=== PATIENT | male | born 1945 | race Caucasian/White ===

== ENCOUNTER 2019-12-01 08:02 | Outpatient (CLI) | payer MEDICARE, SELFPAY ==
--- NOTE | 2019-12-01 | CT_ITS ---
WS: [id number] CT ANGIOGRAPHY abdomen and pelvis AORTA HISTORY: AAA W/O RUPTURE TECHNIQUE: CT angiogram is performed during IV injection. Reformation and MIP images reviewed. All CT scans at [facility] use at least one of these dose optimization techniques: automated exp osure control; mA and/or kV adjustment per patient size (includes targeted exams where dose is matche d to clinical indication); or iterative reconstruction. CONTRAST: Omnipaque 350; 95 mL IV. DLP: 2566.06 mGycm COMPARISON: 08/21/2018 Marked emphysematous changes at the lung bases. Heart size is normal to slightly enlarged. No signifi cant hiatal hernia. There is mild tricuspid regurgitation into hepatic veins. Normal size liver and s pleen. On this early arterial enhancement phase there is normal enhancement of the visceral organs. G allbladder is been removed. Pancreas demonstrates mild atrophy. Bilateral renal cysts with normal enh ancement throughout the kidneys. No obstruction. No free fluid or adenopathy. Extensive brady diverticu losis without acute diverticulitis. Well-distended urinary bladder. Prostate hypertrophy. Abdominal aorta: Endovascular graft has been placed throughout the abdominal aorta and extending into the common iliac arteries bilaterally. Maximum diameter of the saccular [place] aortic aneurysm is un changed at approximately 6.2 cm. There is a curvilinear area of increased density in the LEFT lateral thrombus on the unenhanced study which was present on the prior study. The endovascular graft extend s from the superior mesenteric artery and inferior into the iliac arteries. There is normal enhanceme nt of the endovascular lumen. No increase in size of the saccular aneurysm. On the delayed imaging th ere is no evidence for endovascular leak. Common iliac arteries normally enhanced through the graft. Aneurysmal dilatation of the LEFT common iliac artery 3.1 cm which is stable. RIGHT common iliac annia ry is ectatic. Atherosclerotic changes extend into the common, internal/external iliac arteries to th e femoral artery. Linear intraluminal defect in the distal RIGHT external iliac artery may be focal d issection. Unchanged. Mild spondylitic changes in the thoracic and lumbar spines as visualized. No osseous destruction. CT/CT angio abdomen pelvis 17085 IMPRESSION: 1. Stable endovascular graft repair of the abdominal aorta and iliac arteries. 2. 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 3. 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 4. 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 5. Brady diverticulosis without diverticulitis. 6. Prior granulomatous disease.
[2019-12-01] MEDS: iohexol 350 mg/mL 100 mL Btl IV (09:13)
[2019-12-01 09:16] LABS: Blood Urea Nitrogen 8 mg/dL (8-23)
== END 2019-12-01 08:03 | disposition home or self-care (01) ==
PROVIDERS: Family Provider Internal Medicine; Visit Provider Thoracic Surgery (Cardiothoracic Vascular Surgery)
DX: I71.4 Abdominal aortic aneurysm, without rupture (principal); K57.90 Diverticulosis of intestine, part unspecified, without perforation or abscess without bleeding; I72.3 Aneurysm of iliac artery
CPT/HCPCS: 74174; 82565; 84520; Q9967

== ENCOUNTER 2021-02-17 09:03 | Outpatient (CLI) | payer MEDICARE, SELFPAY ==
--- NOTE | 2021-02-17 09:30 | CT_ITS ---
WS: [id number] CTA ABDOMEN PELVIS TECHNIQUE: Noncontrast plus contrast enhanced CTA of the abdominal aorta with coronal and sagittal re formatted images and additional MIP Images. CLINICAL INFORMATION: Abdominal aortic aneurysm. COMPARISON: CTA December 01, 2019 and DLP: 2322.[address] scans at [facility] use at least one of these dose optimization techniques: automat ed exposure control; mA and/or kV adjustment per patient size (includes targeted exams where dose is matched to clinical indication); or iterative reconstruction. FINDINGS: Prior postoperative changes aortic endovascular graft repair with biiliac extension. Excluded aneurys m sac measuring 5.5 x 5.0 cm AP by transverse slightly decreased in size from previous. Previously th is measured 6.2 cm x 5.0 cm. Celiac and SMA are patent. Renal arteries are patent. No evidence of end oleak on the delayed imaging. No evidence of intramural hematoma on the noncontrast imaging. Stable c alcified mural thrombus eccentric to the left on the noncontrast imaging. Stable left common iliac ar [place] aneurysm measuring 3.1 CM. Stable ectatic right common iliac artery. 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 Advanced chronic emphysematous changes in the lung bases. Normal GE junction. Normal liver and spleen . Prior cholecystectomy. Fatty atrophy of the pancreas. Bilateral renal cysts. Colonic diverticulosis is unchanged. No evidence of acute diverticulitis. Prostate hypertrophy. Urine distended bladder. CT/CT angio abdomen pelvis 67991 IMPRESSION: 1. Prior postoperative changes aortic endograft repair with biiliac extension. 2. No evidence of endoleak on the delayed imaging. 3. Excluded aneurysm sac is slightly decreased in size today measuring 5.5 x 5 .0 cm 4. Stable left common iliac artery aneurysm measuring 3.1 cm. 5. 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 No flow-limiti ng stenosis 6. No other significant changes from previous.
[2021-02-17 09:49] LABS: Blood Urea Nitrogen 10 mg/dL (8-23)
[2021-02-17] MEDS: iohexol 350 mg/mL 100 mL Btl IV (10:02)
== END 2021-02-17 09:04 | disposition home or self-care (01) ==
PROVIDERS: PCP Internal Medicine; Visit Provider Thoracic Surgery (Cardiothoracic Vascular Surgery)
DX: I71.4 Abdominal aortic aneurysm, without rupture (principal)
CPT/HCPCS: 74174; 82565; 84520; Q9967

== ENCOUNTER → 2022-01-13 09:12 | Outpatient (BNVA) | payer MEDICARE, SELFPAY | PROVIDERS: PCP Internal Medicine; Referring Provider Nurse Practitioner Family; Visit Provider Orthopaedic Surgery | DX: M17.12 Unilateral primary osteoarthritis, left knee (principal); M25.562 Pain in left knee | CPT/HCPCS: 73560; 73565; 99203 ==

== ENCOUNTER → 2022-02-01 13:13 | Day surgery (SDC) | payer MEDICARE, SELFPAY | PROVIDERS: PCP Internal Medicine; Visit Provider Orthopaedic Surgery | DX: Z01.818 Encounter for other preprocedural examination (principal) | CPT/HCPCS: 93005 ==

== ENCOUNTER 2022-02-13 14:55 | Observation (INO) | payer MEDICARE, SELFPAY ==
--- NOTE | 2022-02-01 13:13 | ECG_ITS ---
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 Measurements Intervals [place] Rate: 74 P: 50 VA: 161 QRS: 38 QRSD: 86 T: 47 QT: 393 QTc: 437 Interpretive Statements SINUS RHYTHM SEPTAL MYOCARDIAL INFARCTION , OF INDETERMINATE AGE [40+ ms Q WAVE IN V1/V2] Compared to ECG 07/09/2018 09:23:30 No significant changes Electronically Signed On 02-01-2022 19:47:01 CDT by Chantel Rodriguez M.D. [id number]
[2022-02-01 13:37] LABS: Basophils # 0.1 10^3/uL (0.0-0.1); Basophils % 0.7 %; Eosinophils # 0.3 10^3/uL (0.0-0.8); Eosinophils % 4.5 %; Hemoglobin 13.2 g/dL (11.7-16.6); Lymphocytes # 2.1 10^3/uL (0.8-4.8); Lymphocytes % 28.1 %; Mean Corpuscular Hemoglobin 31.7 pg (28.0-34.0); Mean Corpuscular Volume 95.9 fl (80-94); Mean Platelet Volume 8.7 fL (7.4-10.4); Monocytes # 0.7 10^3/uL (0.2-0.9); Monocytes % 9.2 %; Neutrophils # 4.33 10^3/uL (1.8-7.7); Neutrophils % 57.1 %; Nucleated Red Blood Cells % 0 %; Platelet Count 286 10^3/cmm (130-400); Red Blood Count 4.17 10^6/uL (4.1-5.3); Red Cell Distribution Width 13.4 % (12.1-15.1); White Blood Count 7.6 10^3/uL (4.0-10.0)
--- NOTE | 2022-02-01 15:11 | ANES.PREANE2 ---
Pre-Anesthetic Assessment Height/Weight: Height 1.73 m Weight 65.771 kg Preop Diagnosis: OA left knee Operation Date: 02/13/22 10:50 Proposed Procedures p Left Total Knee Arthroplasty 84347,M17.12(Left) - Ciro Degroot MD Last intake: none Social No alcohol and No tobacco Exam alert, oriented x 3 and regular rate & rhythm b/l breath sounds diminished Airway Submandibular: within normal limits Cervical ROM: within normal limits Mallampati: Class II Comments: Comments: Poor dentition, missing teeth Pulmonary Chronic Obstructive Pulmonary Disease and Shortness of Breath CV/HEM Able to ascend flight of stairs w/o CP but does get SOB EKG 02/01/22 ? ? Interpretive Statements SINUS RHYTHM SEPTAL MYOCARDIAL INFARCTION , OF INDETERMINATE AGE [40+ ms Q WAVE IN V1/V2] Compared to ECG 07/09/2018 09:23:30 No significant changes [id number] None reported Hepatic None reported GI None reported Metabolic None reported Musc/skel None reported Neuropsych None reported Anesthetic Plan ASA status: 3 Anesthesia: Anesthesia Evaluation and Regional (specify below) (Spinal with adductor canal block for post op pain control ) Other: We discussed risk and benefits of general vs spinal anesthesia including DVT risk, infection, paralysis/catastrophic nerve injury, back bruising/pain, PDPH, conversion to general in case of spinal, PONV, sore throat (sometimes severe), corneal abrasion, positioning and peripheral nerve injuries, life threatening allergic reaction, post operative ICU admission requiring prolonged intubation, stroke, heart attack, , post operative delirium and/or post operative cognitive decline, and rare incidences of recall (under general anesthesia). We discussed risk and benefits of nerve block for post op pain control including management of pain and titration of pain medications as signs/symptoms of nerve block wearing off begin to appear and/or prior bed. We discussed risk of failed nerve block, vascular injury or other vital structure injury, abscess/infection, LAST, and nerve injury. Patient elects spinal with adductor canal block for post op pain control Risk of > 500 ml blood loss (7ml/kg in children): No Medications/Allergies Home Medications Medication Instructions Recorded Confirmed Last Taken Type aspirin 81 mg tablet,delayed 81 mg PO DAILY 06/25/20 08/03/22 Unknown History release atorvastatin 20 mg tablet 20 mg PO DAILY 12/25/19 02/01/22 Unknown History Allergies Allergy/AdvReac Type Severity Reaction Status Date / Time No Known Allergies Allergy Verified 01/13/22 09:38 [facility] Anesthesia Surgical History S/P AAA repair Family History Mother Cancer Father Cancer Sister Chronic kidney disease (CKD) Social History Smoking and tobacco status: current every day smoker cigarettes Packs smoked per day: 1 Years cigarettes smoked: 65 Alcohol intake: current Alcohol intake frequency: 0-2 Drinks per Day Data Anesthesia : 02/01/22 12:50 Short CBC 02/01/22 Range/Units 12:50 WBC 7.6 (4.0-10.0) 10^3/uL Hgb 13.2 (11.7-16.6) g/dL Hct 40.0 L (42.0-52.0) % MCV 95.9 H (80-94) fl Plt Count 286 (130-400) 10^3/cmm Neut % (Auto) 57.1 % Neut # (Auto) 4.33 (1.8-7.7) 10^3/uL Cardiac Studies: No Data to Display
[2022-02-13] VITALS (16 sets, daily range): BP systolic 101–158; BP diastolic 57–74; PULSE 62–78; RESP 14–18; TEMP 36.1–36.8; O2SAT 90–97
--- NOTE | 2022-02-13 09:23 | ECG_ITS ---
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 Measurements Intervals [place] Rate: 75 P: 53 MS: 166 QRS: 56 QRSD: 83 T: 60 QT: 388 QTc: 435 Interpretive Statements SINUS RHYTHM WITH SINUS ARRHYTHMIA MINIMAL ST DEPRESSION [0.025+ mV ST DEPRESSION] Compared to ECG 02/01/2022 13:13:33 ST (T wave) deviation now present Myocardial infarct finding no longer present Electronically Signed On 02-13-2022 17:43:44 CDT by Reed Roca M.D. [email or web address] | [id number]"
[2022-02-13] MEDS: sodium chloride 0.9% 1,000 ML 30 ML IV (09:41)
[2022-02-13] MEDS: oxyCODONE 20 mg ER (12 HR) Tablet PO (09:48)
[2022-02-13] MEDS: acetaminophen 500 mg Tablet 1000 MG PO ×2 (09:50→18:17)
[2022-02-13] MEDS: gabapentin 300 mg Capsule PO (09:50)
[2022-02-13] MEDS: CELEcoxib 100 mg Capsule 400 MG PO (10:08)
--- NOTE | 2022-02-13 10:51 | P.ANESUD_ITS ---
Pre-Anesthetic Update Pre-Anesthetic Assessment: Date of Surgery/Procedure: 02/13/22 Preop Angelique gnosis: OsteoarthritisLeft knee Proposed Procedure: Operation Date: 02/13/22 11:20 Proposed Procedures p Left Total Knee Arthroplasty 58012,M17.12(Left) - Ciro Degroot MD Any changes to Pre-Anesthetic Assessment?: No Last Intake: Intake Last Liquid Date 02/12/22 Last Liquid Time 19:00 Last Solid Date 02/12/22 Last Solid Time 19:00 Vitals: Pulse Rhythm 02/13/22 09:28 Pulse Strength 3+ Normal 02/13/22 09:28 Respiratory Rate 16 02/13/22 09:48 Respiratory Depth Normal 02/13/22 09:48 Respiratory Patter n 02/13/22 09:48 Pulse Oximetry 94 02/13/22 09:48 Oxygen Delivery Me thod 02/13/22 09:28 Exam: Pre-Anes Outpt Exam: alert, oriented x 3, clear to auscultation bilaterally and regular rate & rhythm Other Pertinent Information: Other Pertinent Information: Previous spine surgery will attempt to place SAB above. Cardiac Studies: No Data to Display
[2022-02-13] MEDS: ceFAZolin 2,000 MG in sodium chloride 0.9% (plus) 50 ML 100 MG IV ×2 (11:39→19:24)
--- NOTE | 2022-02-13 11:40 | P.HP_ITS ---
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 Radiographs revealed severe degenerative changes in the medial compartment of his knee. He has failed anti-inflammatories.. He describes considerable pain with activity and functional loss. He is here for an elective left total knee arthroplasty Medications/Allergies* Home Medications Medication Instructions Recorded Confirmed Type aspirin 81 mg tablet,delayed 81 mg PO DAILY 12/25/19 02/01/22 History release Allergies/Adverse Reactions Allergy/AdvReac Type Severity Reaction Status Date / Time No Known Allergies Allergy Verified 02/13/22 09:06 Current Medications: Generic Name Dose Route Start Last Admin Trade Name Freq PRN Reason Stop Dose Admin Sodium Chloride 1,000 mls @ 30 mls/hr 02/13/22 09:15 02/13/22 09:41 Sodium Chloride 0.9% IV 02/14/22 09:14 30 mls/hr .Q24H ANTONIA Administration Pertinent History/Comorbid Conditions* Surgical History (Updated 12/25/19 @ 10:48 by Cristobal Castañeda MD) S/P AAA repair Family History (Updated 12/25/19 @ 10:35 by Klarissa Nails LPN) Chronic kidney disease (CKD) Sister Cancer Mother Father Social History Smoking and tobacco status: current every day smoker cigarettes Packs smoked per day: 1 Years cigarettes smoked: 65 Alcohol intake: current Alcohol intake frequency: 0-2 Drinks per Day Pertinent Exam Findings alert, oriented x 3, clear to auscultation bilaterally, regular rate & rhythm and operative site marked Recommendations Surgery/Procedure today Coding Level of Care Code Acute Superintendent Measurement for Carla Bentley
[2022-02-13] MEDS: tranexamic acid 1,000 mg/10mL SDV 1000 MG IV (11:58)
--- NOTE | 2022-02-13 12:35 | ANES.PROC ---
Anesthesia Procedures Procedure/Date: 02/13/22 Nerve Block ^: Nerve Block 1: Main Anesthesia: spinal anesthesia block Time Out Performed: Yes Consent: requested by attending/covering physician, from patient, risks and benefits reviewed and patient agrees to proceed Nerve block location: adductor canal (left) Anesthesia monitors applied: pulse oximetry, EKG, BP cuff and oxygen Nerve block position: supine Anesthetic Used: ropivicaine 0.5% Amount of anesthesia used (mL): 20 Ultrasound used to: recognize landmarks Nerve Stimulator Used?: No Interscalene/Femoral BLK: 4 stimuplex 21 g needle used for position and inplane approach Injection: neg aspiration of heme Patient Tolerated Procedure: well Complications: none
[2022-02-13] MEDS: tranexamic acid 1,000 mg/10mL SDV 1000 MG XX (12:38)
[2022-02-13] MEDS: ketorolac 30 mg/mL INJ XX (12:39)
[2022-02-13] MEDS: EPINEPHrine 1 mg/mL INJ XX (12:39)
--- NOTE | 2022-02-13 13:40 | XRR_ITS ---
PROCEDURE INFORMATION: Exam: XR Left Knee Exam date and time: 02/13/2022 1:41 PM Age: 76 years old Clinical indication: Device placement; Joint replacement hardware; Prior surgery; Surgery date: Post-operative (0-2 days); Surgery type: Left total knee arthroplasty TECHNIQUE: Imaging protocol: Radiologic exam of the Left knee. Views: 1 or 2 views. COMPARISON: CR XR knees AP WB w LT lmt ORTH 01/13/2022 9:28 AM FINDINGS: Bones/joints: The patient is status post left total knee arthroplasty with patellar resurfacing. No fracture or dislocation. Expected postoperative soft tissue changes noted. Soft tissues: See Bones/joints finding. XR/XR knee LT 1-2V 53898 IMPRESSION: Status post left total knee arthroplasty, without evidence of hardware related complication.
--- NOTE | 2022-02-13 13:40 | PM.OP ---
Operative Report Date of procedure: February 13, 2022 Pre-op diagnosis: Preop Diagnosis OsteoarthritisLeft knee Post-op diagnosis: same Post-op diagnosis: Same Post-op findings: Same Procedure done: Left total knee arthroplasty Implants: [place] Triathalon total knee arthroplasty components were used includin) Size 5 triathalon cruciate retaining femoral component 2) Size 5 Tritanium tibial component 3) Size 5/19 mm thickness CS tibial bearing insert Pathology: none sent Surgeon: Ciro Degroot Anesthesia: Nerve Block (Spinal, adductor canal block) Estimated blood loss (mL): 100 Findings: The patient eburnated bone over his medial femoral condyle and medial tibial plateau with varus alignment of the knee. There is thinning and osteophytes about the trochlea but the patellar cartilage for the most part was not healthy. Condition: stable Disposition: PACU Procedure: The patient was taken to the operating room. Patient was given 1 g of tranexamic acid . The above anesthesia provided by the anesthesia service. A timeout was performed. The patient was prepped and draped in the usual fashion with the lower extremity exposed. A anterior incision was made, midline, from a point proximal to the patella to the distal tibial tubercle. The knee was entered through a separate vastus approach. The patella could be displaced laterally and the knee flexed. The patellar fat pad was resected to provide better visibility. Retractors were placed medially and laterally adjacent to the tibial plateau. The femoral canal was drilled in line with the longitudinal axis of the femur. Intramedullary femoral guide for used to make a distal femoral cut in 5 degrees of valgus, resecting 8 mm from the more prominent condyle. Next the extra medullary tibial guide was placed in alignment with the longitudinal axis of the tibia. The cutting guides were set to remove just over 9 mm from the high tibial plateau. The proximal tibia was then cut. The femoral measuring guide was then placed over the distal femur. Rotation was verified checking the relationship of the guide to the condyle and the trochlear groove. The femur was measured and cut for the desired femoral component. The desired tibial baseplate was then chosen. A trial reduction with the femur tibial baseplate and polyethylene was done, assuring that the knee was stable throughout full motion. Ligament balancing involved release nothing more than the deep medial collateral ligament.The tibia was prepared for the tibial baseplate. Minimal patellar wear was identified and the patella seemed to track well with the femoral component. Decision was made not to resurface the patella. Utilizing electrocautery a circumferential neurectomy was accomplished across the patella. Surfaces were cleaned with a gentamicin solution. The femur and tibia were then press-fit into place. The posterior capsule and collateral ligaments were then injected with a solution of 100 mL of 0.2% ropivacaine, 1 mL of a 1:1000 epinephrine solution, 30 mg of Toradol, and 1 g of tranexamic acid. Final polyethylene component was then snapped into place into the tibia. The extensor retinaculum was closed with a running 1 Stratafix interrupted 1 Ethibond. The subcutaneous tissues were closed with 2-0 Vicryl and the skin was closed with a running 4-0 Stratafix. The wound was covered with a Dermabond Prineo dressing. It was covered with 4xrs and a compressive Tubigauze was applied. The patient was taken to recovery room in stable condition.
--- NOTE | 2022-02-13 14:00 | ANE.PACU2 ---
Inpatient post-anesthesia follow up: Airway intact: Yes Vital signs: Temperature 97.0 F Pulse Rate 63 Respiratory Rate 16 Blood Pressure 101/63 Pulse Oximetry 91 Oxygen Delivery Me thod Room Air Oxygen Flow Rate 6 Fraction of Inspir ed Oxygen Hydration adequate: Yes Nausea and vomiting: No Pain level: 1 Mental status: Baseline
[2022-02-13] MEDS: CELEcoxib 200 mg Capsule PO (22:13)
[2022-02-14] VITALS (7 sets, daily range): BP systolic 136–172; BP diastolic 73–91; PULSE 64–75; RESP 15–21; TEMP 36.4–37.1; O2SAT 95–96
[2022-02-14] MEDS: sodium chloride 0.9% 1,000 ML 100 ML IV (02:05)
[2022-02-14] MEDS: acetaminophen 500 mg Tablet 1000 MG PO ×2 (02:20→10:02)
[2022-02-14] MEDS: ceFAZolin 2,000 MG in sodium chloride 0.9% (plus) 50 ML 100 MG IV (03:24)
[2022-02-14 06:21] LABS: Hemoglobin 11.8 g/dL (11.7-16.6)
[2022-02-14] MEDS: aspirin 81 mg EC Tablet PO (10:03)
[2022-02-14] MEDS: CELEcoxib 200 mg Capsule PO (10:03)
[2022-02-14] MEDS: albuterol 8 gm MDI 2 PUFF INHALATION (10:15)
--- NOTE | 2022-02-14 11:03 | PM.DCS ---
Discharge Providers Date of Admission: 02/13/22 14:55 Date of Discharge: February 14, 2022 Attending Provider at Admission: Ciro Perry MD Attending Provider at Discharge: Ciro Perry MD Primary Care Provider: Talita Recinos MD Reason for Visit Reason for Visit: Brief History: Martín is a 76-year-old male with osteoarthritis of the left knee exacerbated after a fall 3 months ago. Radiographs showed complete obliteration of medial joint space and varus alignment. Total knee arthroplasty was chosen to improve pain and function Hospital Course Hospital Course The patient tolerated surgery well. They remained hemodynamically stable. They was begun on aspirin and sequential compression dressing for DVT prophylaxis. The patient was mobilized with therapy beginning the day of surgery and by the first postoperative day independent with the walker. As the pain was adequately controlled and they were fully mobile they were discharged home. Physical Exam Narrative: On the day of discharge the knee incision was clean. They had no drainage. There is minimal swelling in the thigh and knee and the calf. No distal neurovascular deficits were noted Urinary Catheter Management: Cook: Cath Placed During This Visit: yes Urinary Catheter Date of Insertion: 02/13/22 Urinary Catheter Time of Insertion: 12:10 Discharge Data Studies Completed and Pending Completed Studies During Hospitalization Category Date Time Status XR knee LT 1-2V 02822 Routine Exams 02/13/22 13:40 Completed Radiology Impressions Knee X-Ray 02/13/22 13:40 IMPRESSION: Status post left total knee arthroplasty, without evidence of hardware related complication. Laboratory Results WBC 7.6 10^3/uL (4.0-10.0) 02/01/22 12:50 RBC 4.17 10^6/uL (4.1-5.3) 02/01/22 12:50 Hgb 11.8 g/dL (11.7-16.6) 02/14/22 06:13 Hct 40.0 % (42.0-52.0) L 02/01/22 12:50 MCV 95.9 fl (80-94) H 02/01/22 12:50 MCH 31.7 pg (28.0-34.0) 02/01/22 12:50 MCHC 33.0 g/dL (30.0-36.0) 02/01/22 12:50 RDW 13.4 % (12.1-15.1) 02/01/22 12:50 Plt Count 286 10^3/cmm (130-400) 02/01/22 12:50 MPV 8.7 fL (7.4-10.4) 02/01/22 12:50 Neut % (Auto) 57.1 % 02/01/22 12:50 Lymph % (Auto) 28.1 % 02/01/22 12:50 [place] % (Auto) 9.2 % 02/01/22 12:50 Eos % (Auto) 4.5 % 02/01/22 12:50 Baso % (Auto) 0.7 % 02/01/22 12:50 Neut # (Auto) 4.33 10^3/uL (1.8-7.7) 02/01/22 12:50 Lymph # (Auto) 2.1 10^3/uL (0.8-4.8) 02/01/22 12:50 [place] # (Auto) 0.7 10^3/uL (0.2-0.9) 02/01/22 12:50 Eos # (Auto) 0.3 10^3/uL (0.0-0.8) 02/01/22 12:50 Baso # (Auto) 0.1 10^3/uL (0.0-0.1) 02/01/22 12:50 Nucleated RBC % (auto) 0 % 02/01/22 12:50 Nucleated RBCs # 0.0 /100WBC 02/01/22 12:50 Vitals Last Vital Signs Temp 98.7 F 02/14/22 10:05 Pulse 64 02/14/22 10:16 Resp 15 02/14/22 10:16 BP 136/76 02/14/22 10:05 Pulse Ox 96 02/14/22 10:16 O2 Del Method 02/14/22 10:16 O2 Flow Rate 2 02/13/22 22:06 Discharge Plan Discharge Patient Disposition: Home Condition: Stable Prescriptions: New oxycodone 5 mg Tablet 5 mg PO Q4H PRN (Reason: Moderate Pain) 7 Days Qty: 30 0RF celecoxib 200 mg Capsule 200 mg PO Q12H 14 Days Qty: 28 0RF acetaminophen 500 mg Tablet 1,000 mg PO Q8H 14 Days Qty: 84 0RF Continued aspirin 81 mg tablet,delayed release (DR/EC) 81 mg PO DAILY Discharge Orders: Discharge Order (Routine); Ordered 02/14/22 Ordered By: Ciro Perry Other Ambulatory Orders: Physical Therapy Eval and Treat Outpatient (Order) Timeframe: 3 Days Facility: [facility] - Location: Physical Therapy Ordered By: Ciro Perry Discharge Diet: Advance as tolerated Discharge Activity: Limit activity as instructed Patient Instructions: Opioid Safety Activity Restrictions/Additional Instructions: Okay to shower Keep Tubigauze sleeve in place for swelling. Okay to remove for hygiene. Apply FirstIce up to 20 min/hr for pain and swelling Take Celebrex twice a day for the next 15 days for pain , discontinue other anti-inflammatories Take Tylenol 500mg (2 tabs) as needed 3 times a day for mild pain take oxycodone for breakthrough pain. Exercises per physical therapy. May weight-bear as tolerated on total knee arthroplasty IF HAVE ANY PROBLEMS OR QUESTIONS CALL [facility]INE[facility] AT AND ASK TO HAVE DR. PERRY PAGED. Discharge Attestations Time Spent in Discharge Care*: other Quality Metrics Clinical Quality Measures [ No reported AMI, CVA or VTE this stay] Coding Level of Care Code Acute Chg FW DC note
== END 2022-02-14 13:00 | disposition home or self-care (01) ==
LOC: OBGYN 14:59
PROVIDERS: Anesthesiology; Admitting Provider Orthopaedic Surgery; PCP Internal Medicine; Visit Provider Orthopaedic Surgery
PROC: (CPT 27447; principal; 2022-02-13 11:10)
DX: M17.12 Unilateral primary osteoarthritis, left knee (principal); Z79.82 Long term (current) use of aspirin; F17.210 Nicotine dependence, cigarettes, uncomplicated; J44.9 Chronic obstructive pulmonary disease, unspecified
CPT/HCPCS: 27447; 36415; 51702; 73560; 85018; 85025; 93005; 94640; 94664; 97110; 97116; 97161; 97165; C1776; G0378; J0171; J1580; J1885; J2704; J2795; J3535; J7030

== ENCOUNTER → 2022-02-15 10:42 | Outpatient (BNVA) | payer MEDICARE, SELFPAY | PROVIDERS: PCP Internal Medicine; Visit Provider Orthopaedic Surgery | DX: Z96.652 Presence of left artificial knee joint (principal) | CPT/HCPCS: 99024 ==

== ENCOUNTER 2022-02-21 07:24 | Outpatient (RCR) | payer MEDICARE, SELFPAY | END 2022-03-01 23:59 | disposition home or self-care (01) | LOC: SPT 07:24 | PROVIDERS: PCP Internal Medicine; Visit Provider Orthopaedic Surgery | DX: Z96.652 Presence of left artificial knee joint (principal) | CPT/HCPCS: 97110; 97161; 99024 ==

== ENCOUNTER 2022-02-22 08:42 | Outpatient (CLI) | payer MEDICARE, SELFPAY ==
--- NOTE | 2022-02-22 09:30 | USCV_ITS ---
Martín Pickering Age: 76 Gender: M : 1945 Exam Date: 02/22/2022 09:18 Ordering Phys: Ciro Degroot MD Technologist: Vanessa Turk Exam Location: [facility] [place] Indication: Recent Lt knee surgery with swollen lt lower leg HISTORY: Recent Lt Knee surgery with swollen Lt lower Leg PROCEDURES: Venous duplex imaging was performed in only the left lower extremity. The following venous structures were evaluated: common femoral vein, profunda vein, proximal portion of the greater saphenous vein, superficial femoral vein, and the popliteal vein. In addition, the posterior tibial and peroneal trunk were evaluated. Serial compression, augmentation maneuvers, and spectral Doppler flow evaluation were performed. Lt SSV examined. FINDINGS: Normal 2-D Doppler and augmentation and compressibility throughout the lower extremity venous structures. Additional imaging through the proximal calf veins also reveals no thrombus. Limited evaluation of the greater saphenous vein is patent with no thrombus.. Lymph nodes seen Lt groin. CONCLUSIONS No evidence of left lower extremity DVT. Prominent groin lymph nodes likely reactive. River Lester MD (Electronically Signed) Final Date: 22 February 2022 13:28 S
== END 2022-02-22 08:43 | disposition home or self-care (01) ==
LOC: RAD 08:42
PROVIDERS: PCP Internal Medicine; Visit Provider Orthopaedic Surgery
DX: Z96.652 Presence of left artificial knee joint (principal); R22.42 Localized swelling, mass and lump, left lower limb; T81.9XXA Unspecified complication of procedure, initial encounter; Z98.890 Other specified postprocedural states
CPT/HCPCS: 93971

== ENCOUNTER → 2022-02-27 08:14 | Outpatient (BNVA) | payer OTHER, SELFPAY | PROVIDERS: PCP Internal Medicine; Visit Provider Nurse Practitioner Family | DX: Z96.652 Presence of left artificial knee joint (principal); M17.12 Unilateral primary osteoarthritis, left knee | CPT/HCPCS: 73560; 73565 ==

== ENCOUNTER 2022-03-02 06:00 | Outpatient (RCR) | payer MEDICARE, SELFPAY | END 2022-03-31 23:59 | disposition home or self-care (01) | LOC: SPT 06:00 | PROVIDERS: PCP Internal Medicine; Visit Provider Orthopaedic Surgery | DX: Z96.652 Presence of left artificial knee joint (principal) | CPT/HCPCS: 97110 ==

== ENCOUNTER → 2022-03-07 08:43 | Outpatient (BNVA) | payer MEDICARE, SELFPAY | PROVIDERS: PCP Internal Medicine; Visit Provider Nurse Practitioner Family | DX: Z96.652 Presence of left artificial knee joint (principal) | CPT/HCPCS: 99024 ==

== ENCOUNTER 2022-04-01 06:00 | Outpatient (RCR) | payer MEDICARE, SELFPAY | END 2022-04-04 23:59 | disposition home or self-care (01) | LOC: SPT 06:00 | PROVIDERS: PCP Internal Medicine; Visit Provider Orthopaedic Surgery | DX: Z96.652 Presence of left artificial knee joint (principal) | CPT/HCPCS: 97110 ==

== ENCOUNTER → 2022-04-04 09:36 | Outpatient (BNVA) | payer MEDICARE, SELFPAY | PROVIDERS: PCP Internal Medicine; Visit Provider Nurse Practitioner Family | DX: Z96.652 Presence of left artificial knee joint (principal) | CPT/HCPCS: 73560; 73565; 99024; 99214 ==

== ENCOUNTER 2022-04-26 12:28 | Outpatient (CLI) | payer MEDICARE, SELFPAY ==
--- NOTE | 2022-04-26 | USCV_ITS ---
Ladan Martín Age: 76 Gender: M : 1945 Exam Date: 04/26/2022 13:05 Ordering Phys: Talita Recinos MD Technologist: Vineet Denson [place] [facility] [place]: Heart murmur BP: 122 / 80 HR: 63 Rhythm: Sinus Technical Quality: Adequate MEASUREMENTS (Male / Female) Normal Values 2D ECHO LV Diastolic Diameter PLAX 4.9 cm 4.2 - 5.9 / 3.9 - 5.3 cm LV Systolic Diameter PLAX 3.2 cm IVS Diastolic Thickness 0.9 cm 0.6 - 1.0 / 0.6 - 0.9 cm IVS Systolic Thickness 1.2 cm LVPW Diastolic Thickness 1.1 cm 0.6 - 1.0 / 0.6 - 0.9 cm LVPW Systolic Thickness 1.6 cm LVOT Diameter 2.0 cm LV Ejection Fraction 2D Teich 62.3 % LV Ejection Fraction MOD 2C 61.8 % LV Ejection Fraction 2C AL 61.8 % LA Diameter 3.4 cm LA Width 2.9 cm LA Height 3.6 cm RA Width 3.3 cm RA Height 4.0 cm Aorta at Sinotubular Diameter 2.6 cm IVC Diameter 1.1 cm M-MODE Aortic Annulus Diameter 3.3 cm LA Ao Ratio MM 0.9 MV E Point Septal Separation 0.8 cm DOPPLER AV Peak Velocity 184.0 cm/s LVOT Peak Velocity 111.0 cm/s AV Area Cont Eq vti 2.2 cm squared AV Area Cont Eq pk 2.0 cm squared MV Peak Velocity 141.0 cm/s MV Area PHT 3.2 cm squared Mitral E to A Ratio 0.6 MV E' Velocity 34.5 cm/s Mitral E to MV E' Ratio 8.4 Mitral E to LV E' Lateral Ratio 8.1 Mitral E to LV E' Septal Ratio 8.9 TR Peak Velocity 311.0 cm/s TR Peak Gradient 38.7 mmHg TR Mean Velocity 233.2 cm/s TR Mean Gradient 23.3 mmHg TR Velocity Time Integral 74.8 cm Right Atrial Pressure 3.0 mmHg Pulmonary Artery Systolic Pressu 41.7 mmHg PV Peak Velocity 95.0 cm/s RV Acceleration Time 0.1 s RV Ejection Time 0.2 s RV AcT/ET 0.4 FINDINGS Left Ventricle Normal left ventricular size, systolic function and wall thickness, with no regional wall motion abnormalities. Left ventricular ejection fraction is estimated at 65 %. Grade I diastolic dysfunction (abnormal relaxation filling pattern), normal to mildly elevated filling pressures. Right Ventricle Normal right ventricular size and systolic function. Right ventricular systolic pressure 42 mmHg. Right Atrium Normal right atrial size. Left Atrium Normal left atrial size. Mitral Valve Mildly thickened mitral valve. No mitral valve stenosis. Trace mitral valve regurgitation. Aortic Valve Thickened and calcified aortic valve. No aortic valve stenosis. Dena-nv-ytwxnoew aortic valve regurgitation. Tricuspid Valve Structurally normal tricuspid valve. Trace tricuspid valve regurgitation. Pulmonic Valve Pulmonic valve not well visualized. Trace pulmonary valve regurgitation. Pericardium No pericardial effusion. Aorta Normal size aortic root and proximal ascending aorta. IVC Normal IVC dimension with >50% respiratory change of the inferior vena cava. CONCLUSIONS 1. Normal left ventricular size, systolic function and wall thickness, with no regional wall motion abnormalities. Left ventricular ejection fraction is estimated at 65 %. Grade I diastolic dysfunction (abnormal relaxation filling pattern), normal to mildly elevated filling pressures. 2. Rdqe-na-vjkdcyau aortic valve regurgitation. 3. Pulmonary artery pressure estimated at 42 mmHg. 4. No prior similar studies to compare. Chantel Rodriguez MD (Electronically Signed) Final Date: 27 April 2022 11:22 S
--- NOTE | 2022-04-26 13:57 | CT_ITS ---
WS: [id number] CT CHEST WITH INTRAVENOUS CONTRAST HISTORY: TOBACCO ABUSE, CONTINUOUS TECHNIQUE: Contiguous 5 mm axial imaging performed on the thorax. Coronal and sagittal reformats are submitted. All CT scans at [facility] use at least one of these dose optimization techniques: automated exposure control; mA and/or kV adjustment per patient size (includes targeted exams where dose is matched to clinical indication); or iterative reconstruction. CONTRAST: Omnipaque 350; 95 mL IV. DLP: 692.39 mGy.cm COMPARISON: 09/25/2018 Lungs and central airway: Moderate pulmonary hyperexpansion. There is a subsolid nodule measuring 2.5 x 1.8 cm in the central RIGHT middle lobe. Probably present in 2019 but small caliber and difficult to visualize. The remaining lungs are clear. No pneumonia. Pleura: Normal. No pleural effusion. Heart and pericardium: Normal size heart with no pericardial effusion. Mediastinum and arabella: No mediastinum or hilar adenopathy. Vessels: Extensive atherosclerotic plaque throughout the thoracic aorta. Mild aneurysmal dilatation o f the ascending aorta is unchanged since 09/25/2018. Ascending aorta measures 4.7 x 4.5 cm. Heavy calc ification and irregular intimal thickening through the arch. Descending aorta is normal caliber. Norm al pulmonary artery. Chest wall and lower neck: Thyroid is enlarged and multinodular extends substernal. No change since t he prior study. Upper abdomen: Status post Whipple procedure. No mass at the resected pancreatic head site. Hepatic a nd splenic granulomata. No adrenal mass. Proximal endovascular graft of the abdominal aorta is noted. No change of the lummi aneurysm in the infrarenal aorta. Osseous structures: No destructive process. CT/CT chest w con* [id number] IMPRESSION: 1. Subsolid nodule central RIGHT middle lobe measures 2.5 x 1.8 cm. Consider P ET/CT imaging versus [address] follow-up. This will need to be followed long-term to evaluate for stability. 2. Chronic emphysema. 3. Stable mild aneurysmal dilatation ascending aorta. Maximum diameter 4.7 cm. 4. Extensive atherosclerotic plaque within the thoracic aorta. 5. Status post Whipple procedure.
[2022-04-26] MEDS: iohexol 350 mg/mL 100 mL Btl IV (14:29)
== END 2022-04-26 12:29 | disposition home or self-care (01) ==
LOC: RAD 12:32
PROVIDERS: PCP Internal Medicine; Visit Provider Internal Medicine
DX: R01.1 Cardiac murmur, unspecified (principal); F17.200 Nicotine dependence, unspecified, uncomplicated; R91.1 Solitary pulmonary nodule; J43.9 Emphysema, unspecified; I67.2 Cerebral atherosclerosis; I35.1 Nonrheumatic aortic (valve) insufficiency
CPT/HCPCS: 71260; 93306

== ENCOUNTER 2022-05-10 13:46 | Outpatient (CLI) | payer MEDICARE, SELFPAY ==
--- NOTE | 2022-05-10 14:15 | CT_ITS ---
WS: [id number] CT ANGIOGRAPHY abdomen and pelvis. HISTORY: Follow-up abdominal aortic aneurysm repair. TECHNIQUE: Pre and postcontrast imaging is submitted. CT angiogram is performed during IV injection. Reformation images reviewed. All CT scans at [facility] use at least one of these dose optimiz ation techniques: automated exposure control; mA and/or kV adjustment per patient size (includes targ eted exams where dose is matched to clinical indication); or iterative reconstruction. CONTRAST: Omnipaque 350; 95 mL IV. DLP: 2297.90 mGy.cm COMPARISON: 02/17/2021 Chronic emphysematous changes at the lung bases. No mass or nodule. Mild enlargement of the heart. Sm all hiatal hernia. Abdominal aorta: Patient is status post endovascular graft repair of aorta with bilateral iliac arter y extensions. The seneca aneurysm continues to slowly decrease in size now measuring 5.2 x 4.2 cm. Th ere is no evidence for extravasation or endograft leak on the delayed imaging. No increasing thrombus within the lumen of the graft. Again noted is the LEFT common iliac artery aneurysm measuring 3.5 cm in diameter which is stable. Heavy calcification noted within the seneca iliac arteries bilaterally extending into the femoral arteries. Small amount of calcified plaque at the origins of the SMA and c eliac axis. Splenic and hepatic granulomata. Mild tricuspid regurgitation into hepatic veins. Mild atrophy of the pancreas. Normal adrenal glands. Good enhancement of the kidneys. Bilateral cortical hypodensities a re unchanged. Gallbladder has been removed. No GI tract obstruction. There is extensive diverticular disease without acute diverticulitis. No GI tract obstruction. Prostate gland is enlarged encroaching into the urinary bladder. On the delayed imaging ureteral jets and partial filling of the bladder wi th contrast is noted. Moderate spondylitic changes in the lumbar spine. Fusion across the SI joints. CT/CT angio abdomen pelvis [id number] IMPRESSION: 1. Stable postoperative changes of aortic endograft repair with biiliac extens ion. No evidence for endoleak. 2. Continued slow decrease in size of the seneca aneurysm sac. Sac now measure s 5.2 x 4.2 cm as compared to 5.5 x 5.0 cm. 3. Stable LEFT common iliac artery aneurysm at 3.5 cm. 4. Cholecystectomy.
[2022-05-10 14:53] LABS: Blood Urea Nitrogen 10 mg/dL (8-23)
[2022-05-10] MEDS: iohexol 350 mg/mL 100 mL Btl IV (15:01)
== END 2022-05-10 13:47 | disposition home or self-care (01) ==
LOC: RAD 13:47
PROVIDERS: PCP Internal Medicine; Visit Provider Thoracic Surgery (Cardiothoracic Vascular Surgery)
DX: Z98.890 Other specified postprocedural states (principal); Z86.79 Personal history of other diseases of the circulatory system; I72.3 Aneurysm of iliac artery
CPT/HCPCS: 74174; 82565; 84520; Q9967

== ENCOUNTER → 2022-07-07 09:56 | Outpatient (BNVA) | payer MEDICARE, SELFPAY | PROVIDERS: PCP Internal Medicine; Visit Provider Nurse Practitioner Family | DX: M17.12 Unilateral primary osteoarthritis, left knee (principal); Z96.652 Presence of left artificial knee joint | CPT/HCPCS: 73560; 73565; 99214 ==

== ENCOUNTER 2023-03-21 11:45 | Outpatient (CLI) | payer MEDICARE, SELFPAY ==
--- NOTE | 2023-03-21 12:30 | CT_ITS ---
WS: [id number] CT ANGIOGRAPHY ABDOMEN AND PELVIS HISTORY: AAA TECHNIQUE: CT angiogram is performed during IV injection. Reformation images reviewed. MIP imaging. A ll CT scans at [facility] use at least one of these dose optimization techniques: automated ex posure control; mA and/or kV adjustment per patient size (includes targeted exams where dose is match ed to clinical indication); or iterative reconstruction. CONTRAST: Omnipaque 350; 100 mL IV. DLP: 691.98 mGy.cm COMPARISON: 05/10/2022 Chronic emphysema at the lung bases. Heart is normal size. No hiatal hernia. Abdominal aorta: Endovascular graft repair with biiliac artery extensions is reidentified. There is m arked tortuosity of the nulato aorta. Graft begins just below the level of the SMA and extends into t he iliac arteries. [place] aneurysm measures 4.7 x 4.5 cm. No active extravasation or endovascular petros k is identified. Increasing thrombus is noted within the endovascular graft now measuring up to 8 mm in diameter. Thrombus within the graft is new. No para-aortic hematoma. Mild atherosclerosis at the o rigin of the celiac axis and SMA. Both kidneys are being perfused normally. No interval increase in size of the LEFT common iliac artery aneurysm which measures 3.7 cm in transv erse diameter. There has been a slight increase in amount of thrombus within the iliac artery aneurys m included within the graft. No endovascular leak. Hepatic and splenic granulomata. Gallbladder has been removed. Atrophic pancreas with prior Whipple p rocedure. No adrenal mass. No ascites or adenopathy. Mild constipation and tortuosity of the colon wi th mild diffuse diverticulosis. Bilateral lower pole renal cysts. Well distended urinary bladder. No enhancing nodules. Mild prostate enlargement. Benign lipoma adjace nt to the RIGHT ilium. Advanced degenerative changes in the lumbar spine. No fracture. IMPRESSION: 1. Stable postoperative aortic endovascular graft repair with bilateral iliac extensions. No evidence for endovascular leak or enlargement of the nulato aneurysm. 2. Increase in of noncalcified plaque within the aortic graft. Soft plaque now measures up to 8 mm wi thin the graft. 3. Stable LEFT common iliac artery aneurysm size measuring 3.7 cm. Slight increase in amount of throm bus within the iliac artery graft. 4. Prior cholecystectomy and Whipple procedure. 5. Bilateral renal cysts. Normal renal enhancement. 6. Diffuse diverticulosis without acute diverticulitis.
[2023-03-21] MEDS: iohexol 350 mg/mL 500 mL Btl (per mL) IV (12:32)
== END 2023-03-21 11:46 | disposition home or self-care (01) ==
PROVIDERS: PCP Internal Medicine; Visit Provider Thoracic Surgery (Cardiothoracic Vascular Surgery)
DX: Z98.890 Other specified postprocedural states (principal); T82.868A Thrombosis due to vascular prosthetic devices, implants and grafts, initial encounter; Y71.1 Therapeutic (nonsurgical) and rehabilitative cardiovascular devices associated with adverse incidents; I70.0 Atherosclerosis of aorta; I74.5 Embolism and thrombosis of iliac artery; Z86.79 Personal history of other diseases of the circulatory system; I72.3 Aneurysm of iliac artery; K57.90 Diverticulosis of intestine, part unspecified, without perforation or abscess without bleeding; N28.1 Cyst of kidney, acquired
CPT/HCPCS: 74174; Q9967

== ENCOUNTER → 2023-05-10 09:35 | Outpatient (BNVA) | payer MEDICARE, SELFPAY | PROVIDERS: PCP Internal Medicine; Visit Provider Thoracic Surgery (Cardiothoracic Vascular Surgery) | DX: Z98.890 Other specified postprocedural states (principal); Z86.79 Personal history of other diseases of the circulatory system | CPT/HCPCS: 99213 ==

== ENCOUNTER 2023-08-20 10:56 | Outpatient (CLI) | payer MEDICARE, SELFPAY ==
--- NOTE | 2023-08-20 11:02 | CT_ITS ---
WS: [id number] CT chest wo con [id number] HISTORY: NICOTINE DEPENDENCE, CIGARETTES TECHNIQUE: Axial imaging performed through the thorax. Coronal and sagittal reformats are submitted. All CT scans at [facility] use at least one of these dose optimization techniques: automated exposure control; mA and/or kV adjustment per patient size (includes targeted exams where dose is mat ched to clinical indication); or iterative reconstruction. CONTRAST: None DLP: 319.81 mGy.cm COMPARISON: 04/26/2022 Lungs and central airway: Hyperinflated lungs with emphysema. Subpleural nodule centered at the RIGHT hilum on 04/26/2022 has evolved. This node appears to be an area of bronchiectasis centrally. Slight progression of bronchial dilatation but less wall thickening. Otherwise no pulmonary mass or nodule. No pneumonia. Pleura: Normal. No pleural effusion. Heart and pericardium: Normal size heart with no pericardial effusion. Mediastinum and arabella: No adenopathy identified on this unenhanced exam. Vessels: There is extensive calcification throughout a dilated thoracic aorta. Aneurysmal dilatation to 4.6 cm is unchanged. Mild atherosclerotic plaque continues into the great vessels. Pulmonary arter y is normal size. Coronary artery calcifications. Chest wall and lower neck: No soft tissue masses. Upper abdomen: Reidentified is the endovascular graft repair of the the abdominal aorta. The study wa s not protocoled to evaluate the aneurysm. Osseous structures: Atherosclerosis aorta. IMPRESSION: 1. Subsolid nodule in the central RIGHT thorax in the RIGHT middle lobe has changed configuration si nce 04/26/2022. This is evolved be an area of bronchiectasis. There is less wall thickening with slig ht dilatation of the bronchi. 2. No pulmonary mass or nodules. 3. Chronic emphysema. 4. Stable ascending thoracic cardiac aneurysm at 4.6 cm. 5. Heavy calcification within the thoracic aorta and coronary arteries.
== END 2023-08-20 10:57 | disposition home or self-care (01) ==
LOC: RAD 10:57
PROVIDERS: PCP Internal Medicine; Visit Provider Internal Medicine
DX: F17.210 Nicotine dependence, cigarettes, uncomplicated (principal); J47.9 Bronchiectasis, uncomplicated; R91.8 Other nonspecific abnormal finding of lung field; J43.9 Emphysema, unspecified; I71.21 Aneurysm of the ascending aorta, without rupture; I25.10 Atherosclerotic heart disease of native coronary artery without angina pectoris
CPT/HCPCS: 71250

== ENCOUNTER 2024-02-19 12:03 | Outpatient (CLI) | payer MEDICARE, SELFPAY ==
[2024-02-22 11:04] LABS: Quantiferon Mitogen >10.00 IU/mL; Quantiferon Nil 0.02 IU/mL; Quantiferon Plus TB1 0.01 IU/mL; Quantiferon TB Gold NEGATIVE (NEGATIVE)
== END 2024-02-19 12:04 | disposition home or self-care (01) ==
LOC: LAB 12:04
PROVIDERS: PCP Internal Medicine; Visit Provider Internal Medicine
DX: Z20.1 Contact with and (suspected) exposure to tuberculosis (principal)
CPT/HCPCS: 36415; 86480

== ENCOUNTER 2024-07-09 14:29 | Outpatient (CLI) | payer MEDICARE, SELFPAY ==
--- NOTE | 2024-07-09 16:54 | CTR_ITS ---
PROCEDURE INFORMATION: Exam: CTA Abdominal Aorta and Bilateral Lower Extremities (Run-off) Without and With Contrast Exam date and time: 07/09/2024 5:03 PM Age: 78 years old Clinical indication: Condition or disease; Arterial aneurysm; Without rupture; Prior surgery; Surgery date: 6+ months; Surgery type: Aaa, gb, whipple, back; Patient HX: Follow up abdominal aortic aneurysm, bilateral leg cramps, and left foot swelling TECHNIQUE: Imaging protocol: Computed tomographic angiography of the abdominal aorta, pelvis and bilateral lower extremities without and with contrast. 3D rendering (Not supervised by radiologist): MIP and/or 3D reconstructed images were created by the technologist. Radiation optimization: All CT scans at this facility use at least one of these dose optimization techniques: automated exposure control; mA and/or kV adjustment per patient size (includes targeted exams where dose is matched to clinical indication); or iterative reconstruction. Contrast material: OMNIPAQUE 350; Contrast volume: 125 ml; Contrast route: INTRAVENOUS (IV); COMPARISON: CT angio abdomen pelvis [id number] 03/21/2023 12:27 PM RADIATION DOSE METRICS: Total DLP (mGy-cm): 1845.63 FINDINGS: Tubes, catheters and devices: There is contrast opacification outside the lumen of the endovascular stent graft proximally. Pulmonary arteries: The aneurysm sac now measures 5.9 x 5.9 cm was 5.3 x 4.6 cm. Aorta: The patient is status post endovascular stent placement for abdominal aortic aneurysm. Celiac trunk and mesenteric arteries: The proximal celiac trunk is widely patent. The SMA is widely patent. The ELIEZER was not identified and likely thrombosed. Renal arteries: There is scattered plaque involving the bilateral renal arteries without significant stenosis. There is a peripherally calcified renal artery aneurysms involving the left renal hilum measuring 8 mm. Right iliac arteries: Scattered calcific plaque involves the bilateral common and external iliac arteries without significant stenosis. There is a short-segment dissection involving the right distal external iliac artery. Right femoral/popliteal arteries: There is a trfg-nl-mhelugcg stenosis involving the right distal superficial femoral artery. The right popliteal artery is widely patent. Right infrapopliteal arteries: No occlusion or significant stenosis. Left iliac arteries: The stent graft extends into the limbs of the common iliac arteries. There is a left common iliac artery aneurysms measuring 3.1 cm in diameter, unchanged. Left femoral/popliteal arteries: There is a high-grade stenosis involving the left distal superficial femoral artery. Evaluation of the left popliteal artery is severely compromised by streak artifact from the hardware. Left infrapopliteal arteries: There is poor opacification of the left lower extremity runoff vessels likely related to bolus timing limiting evaluation. Heart: The visualized portions of the thorax demonstrates cardiomegaly. Coronary arteries: Coronary artery calcification present. Liver: No mass. Gallbladder and biliary ducts: Is surgically absent. Pancreas: Unremarkable. No mass. No ductal dilation. Postoperative changes from Whipple procedure. Spleen: Normal. No splenomegaly. Adrenal glands: Normal. No mass. Kidneys and ureters: Tiny bilateral cortical renal cysts Stomach and bowel: Scattered colon diverticula present. Appendix: No evidence of appendicitis. Urinary bladder: Unremarkable. No mass. Reproductive: Unremarkable as visualized. Intraperitoneal space: Unremarkable. No free air. No significant fluid collection. Lymph nodes: No lymphadenopathy. Bones/joints: Multilevel degenerative changes involve the spine. Soft tissues: Delayed imaging through the distal thighs and legs performed. Other findings: there is poor opacification of the bilateral common femoral, superficial femoral and popliteal arteries likely related to bolus timing. The proximal runoff vessels are widely patent with diminutive contrast opacification proximally. The proximal runoff vessels are widely patent. Diminished contrast opacification involving the proximal runoff vessels present likely related to bolus timing. CT/CT angio abd aorta runof [id number] IMPRESSION: 1. The patient is status post endovascular stent placement with interval increase in size of abdominal aortic aneurysm sac. There is contrast opacification outside the lumen of the stent at the proximal graft suggesting a type 1 endoleak. 2. Stable left common iliac artery aneurysm. 3. Short segment dissection left external iliac artery. 4. Limited evaluation of the runoff vessels due to poor bolus timing and poor contrast opacification of the lower extremity arteries.
[2024-07-09] MEDS: iohexol 350 mg/mL 500 mL Btl (per mL) IV (17:39)
== END 2024-07-09 14:30 | disposition home or self-care (01) ==
LOC: RAD 14:30
PROVIDERS: PCP Internal Medicine; Visit Provider Internal Medicine
DX: I71.40 Abdominal aortic aneurysm, without rupture, unspecified (principal); Z98.890 Other specified postprocedural states; I71.02 Dissection of abdominal aorta; I28.1 Aneurysm of pulmonary artery; I70.1 Atherosclerosis of renal artery; I72.2 Aneurysm of renal artery; I70.8 Atherosclerosis of other arteries; I77.72 Dissection of iliac artery; I72.3 Aneurysm of iliac artery; R93.5 Abnormal findings on diagnostic imaging of other abdominal regions, including retroperitoneum
CPT/HCPCS: 75635

== ENCOUNTER 2024-09-08 09:11 | Outpatient (CLI) | payer MEDICARE, SELFPAY ==
--- NOTE | 2024-09-08 | ECG_ITS ---
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 The perfusion scan will be documented separately. DATA: Baseline heart rate was 77 beats per minute. Baseline blood pressure was [156/84] millimeters of mercury. Target heart rate was [140]. Maximum heart rate achieved was [] 101. which was [72]% of the predicted target heart rate. Maximum blood pressure was [156/84] millimeters of mercury. The reason for ending the test was [completion of the protocol]. The patient did not experience any symptoms. [] ELECTROCARDIOGRAM: BASELINE: Sinus rhythm. Normal axis. Otherwise, no ST-T changes suggestive of ischemia noted. No arrhythmia noted. After Lexiscan injection: After Lexiscan injection, no ST-T changes suggestive of ischemic noted. Frequent PVCs were noted CONCLUSION: Please note due to baseline abnormality of the EKG specificity and sensitivity of the EKG portion of LexiScan MIBI stress test will be low 1. EKG not suggestive of ischemia, frequent PVCs were noted 2. Lexiscan injection unremarkable 3. Perfusion scan will be documented separately. Electronically Signed On 09-19-2024 07:22:47 CDT by SATISH CRUZ [email or web address]
[2024-09-08 09:30] VITALS: BMI 21.2
--- NOTE | 2024-09-08 09:33 | NMCV_ITS ---
NM marjan perf SPECT r/s* [id number] Martín Pickering Age: 78 Gender: M : 1945 Exam Date: 09/08/2024 10:33 Ordering Phys: Reed Roca M.D ([email or web address]) Technologist: MURRAY Dietz Exam Location: [facility] Indications: CP STRESS TEST Please see separate stress test report in [facility] for full findings IMAGE PROTOCOL Rest/Stress 1 Lexiscan Day Radiopharmaceutical Dose (mCi) Administration Site Administered by Rest: Tc-99m 11 IV Jordyn Walt, AGRONOMY SUPERVISOR Sestamibi Stress:Tc-99m 32.6 IV Jordyn Walt, AGRONOMY SUPERVISOR Sestamibi Rest: 08-Sep-2024 60 Discovery 630 Stress: 08-Sep-2024 30 Discovery 630 0.4mg Lexiscan. Supine position only as patient was unable to lay prone. SPECT RESULTS Technical Quality: Good Raw Data Analysis: Normal Image Corrections: No attenuation or motion correction applied Summed Stress Score: 7 Summed Rest Score: 3 Summed Difference Score: 5 PERFUSION FINDINGS Large area of basal to distal fixed perfusion defect noted on both rest and stress images which shows moderate area of medium sized area of moderate reversibility suggestive of old myocardial infarction surrounded by manuel- infarct ischemia. FUNCTIONAL RESULTS (calculated via Gated SPECT) Stress Image LV EF (%): 52 Stress EDV (mL):132 TID: 0.91 Stress ESV (mL):63 FUNCTIONAL FINDINGS: Basal distal inferior wall hypokinesis IMPRESSIONS Large area of old myocardial infarction noted in basal distal inferior inferolateral wall surrounded by medium sized area of moderate manuel-infarct ischemia. This study is positive for ischemia suggestive of possible lesion in either dominant circumflex or RCA. Nba Collins MD (Electronically Signed) Final Date: 09 September 2024 18:01 S
[2024-09-08] MEDS: regadenoson 0.4 Mg/5 ml Syringe IVP (11:36)
[2024-09-08 12:15] VITALS: BP 174/66; PULSE 65
== END 2024-09-08 09:12 | disposition home or self-care (01) ==
PROVIDERS: PCP Internal Medicine; Visit Provider Surgery Vascular Surgery
DX: R07.9 Chest pain, unspecified (principal); R93.1 Abnormal findings on diagnostic imaging of heart and coronary circulation; I49.3 Ventricular premature depolarization
CPT/HCPCS: 36415; 78452; 93017; 96374; A9500; J2785

== ENCOUNTER 2024-11-25 09:45 | Outpatient (CLI) | payer MEDICARE, SELFPAY ==
--- NOTE | 2024-11-25 09:54 | XRR_ITS ---
PROCEDURE INFORMATION: Exam: XR Chest Exam date and time: 11/25/2024 10:22 AM Age: 79 years old Clinical indication: Condition or disease; Lung condition and disease; Copd; Complications not specified; Shortness of breath; Prior surgery; Surgery date: 6+ months; Surgery type: Aaa, gb, whipple; HX of cancer of duodenum TECHNIQUE: Imaging protocol: Radiologic exam of the chest. Views: 2 views. COMPARISON: CT chest [facility] [id number] 08/20/2023 11:43 AM FINDINGS: Lungs: Hyperinflated lungs. Pleural spaces: Unremarkable. No pleural effusion. No pneumothorax. Heart/Mediastinum: Unremarkable. No cardiomegaly. Vasculature: Aortic stent in place. Bones/joints: Unremarkable. XR/XR chest 2V* [id number] IMPRESSION: Hyperinflated lungs. No infiltrate.
== END 2024-11-25 09:46 | disposition home or self-care (01) ==
PROVIDERS: PCP Internal Medicine; Visit Provider Internal Medicine
DX: J44.9 Chronic obstructive pulmonary disease, unspecified (principal); R91.8 Other nonspecific abnormal finding of lung field; Z96.89 Presence of other specified functional implants
CPT/HCPCS: 71046

== ENCOUNTER 2024-11-27 16:30 | Inpatient (IN) | payer MEDICARE, SELFPAY ==
[2024-11-27] VITALS (7 sets, daily range): BP systolic 112–150; BP diastolic 72–95; PULSE 99–129; RESP 16–27; TEMP 36.3–36.4; O2SAT 92–97; BMI 19.8; BMI 20.5
--- NOTE | 2024-11-27 16:35 | XRR_ITS ---
PROCEDURE INFORMATION: Exam: XR Chest Exam date and time: 11/27/2024 6:32 PM Age: 79 years old Clinical indication: Cough and dyspnea; Additional info: Dyspnea/cough TECHNIQUE: Imaging protocol: Radiologic exam of the chest. Views: 1 view. COMPARISON: CR XR chest 2V* [id number] 11/25/2024 10:22 AM FINDINGS: Lungs: Mild diffuse interstitial prominence appears similar compared to prior study. The lungs are hyperinflated. Mild increased hyperdensity in the left retrocardiac region likely related to atelectasis secondary to slight decreased lung volumes compared to prior study. Pleural spaces: Questionable trace effusions versus blunting of the costophrenic angle secondary to hyperinflation. No pneumothorax. Heart/Mediastinum: Mild cardiomegaly. Vasculature: Atherosclerotic calcifications of the aorta are noted. Bones/joints: No acute osseous abnormalities are seen. XR/XR chest 1V portable [id number] IMPRESSION: Mild increased hyperdensity in the left retrocardiac region likely related to atelectasis secondary to slight decreased lung volumes compared to prior study. Developing consolidation could also have this appearance.
--- NOTE | 2024-11-27 16:47 | ECG_ITS ---
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 Measurements Intervals [place] Rate: 121 P: 78 HI: 152 QRS: 85 QRSD: 93 T: 99 QT: 286 QTc: 406 Interpretive Statements SINUS TACHYCARDIA WITH FREQUENT VENTRICULAR PREMATURE COMPLEXES WITH OCCASIONAL SUPRAVENTRICULAR PREMATURE COMPLEXES POSSIBLE RIGHT VENTRICULAR CONDUCTION DELAY [RSR (QR) IN V1/V2] ANTERIOR MYOCARDIAL INFARCTION INDETERMINATE Compared to ECG 02/13/2022 09:23:01 Ventricular premature complex(es) now present Myocardial infarct finding now present Sinus rhythm no longer present Sinus arrhythmia no longer present ST (T wave) deviation no longer present Electronically Signed On 12-02-2024 11:49:33 CDT by Reed Roca M.D. [id number]
[2024-11-27 17:35] LABS: Basophils % 0.2 %; Hematocrit 30.1 % (37-53); Lymphocytes # 0.6 10^3/uL (0.8-4.8); Lymphocytes % 10.6 %; Mean Corpuscular HGB Conc 32.6 g/dL (30-55); Mean Corpuscular Hemoglobin 30.4 pg (27-33); Mean Corpuscular Volume 93.5 fl (82-101); Mean Platelet Volume 9.2 fL (7.4-10.4); Monocytes # 0.4 10^3/uL (0.2-0.9); Monocytes % 8.2 %; Neutrophils # 4.33 10^3/uL (1.8-7.7); Neutrophils % 80.6 %; Nucleated Red Blood Cells % 0 %; Platelet Count 385 10^3/cmm (157-399); Red Blood Count 3.22 10^6/uL (3.85-5.65); Red Cell Distribution Width 13.7 % (12.1-15.1); White Blood Count 5.37 10^3/uL (3.29-11.43)
[2024-11-27 17:56] LABS: Alanine Aminotransferase 16 U/L (0-41); Alkaline Phosphatase 129 U/L (40-130); Anion Gap 19.1 (5-19); Aspartate Amino Transferase 22 U/L (0-40); Blood Urea Nitrogen 14 mg/dL (8-23); Calcium 9.4 mg/dL (8.5-10.5); Carbon Dioxide 25 mmol/L (22-29); Chloride 91 mmol/L (98-107); Creatinine Clr Calc Pharmacy 66.1976; Globulin 3.6 g/dL (1.3-4.6); Glucose 141 mg/dL (65-115); Osmolality Calculated 273 mOsm/kg (285-295); Potassium 5.1 mmol/L (3.5-5.1); Sodium 130 mmol/L (136-145); Total Bilirubin 0.3 mg/dL (0.15-1.2); Total Protein 7.6 g/dL (6.6-8.7)
--- NOTE | 2024-11-27 19:42 | CTR_ITS ---
PROCEDURE INFORMATION: Exam: CTA Chest With Contrast Exam date and time: 11/27/2024 8:27 PM Age: 79 years old Clinical indication: Shortness of breath; Prior surgery; Surgery date: 1-6 months; Surgery type: Aaa endograft 10/24/2024. C/O worsening SOB with exertion over last five days. History of copd and duodenal cancer. ; Additional info: SOB, nayak, orthopnea, TECHNIQUE: Imaging protocol: Computed tomographic angiography of the chest with contrast. Exam focused on the arteries. 3D rendering (Not supervised by radiologist): MIP and/or 3D reconstructed images were created by the technologist. Radiation optimization: All CT scans at this facility use at least one of these dose optimization techniques: automated exposure control; mA and/or kV adjustment per patient size (includes targeted exams where dose is matched to clinical indication); or iterative reconstruction. Contrast material: OMNI 350; Contrast volume: 100 ml; Contrast route: INTRAVENOUS (IV); COMPARISON: CT chest [facility] [id number] 08/20/2023 11:43 AM RADIATION DOSE METRICS: Total DLP (mGy-cm): 251.42 FINDINGS: Pulmonary arteries: The main pulmonary artery is well opacified. Bilateral upper lobe pulmonary arteries are well opacified. There is absent opacification of the distal right middle lobe pulmonary arteries as well as the distal right lower lobe pulmonary arteries. There are fluid-fluid levels in the anterior left lower lobe pulmonary arteries which suggests mixed contrast and blood flow. There is a similar appearance and some of the proximal right lower lobe pulmonary arteries. This findings suggest that many filling defects may be artifactual in nature. Non opacification of multiple peripheral pulmonary arteries including the right middle lobe and bilateral lower lobes. While potentially representing extensive pulmonary emboli, non opacification due to incomplete filling is suspected particularly given mixed blood and contrast in multiple pulmonary arteries. The main pulmonary artery is prominent, similar compared to prior imaging, suggesting pulmonary hypertension. Aorta: Atherosclerotic calcifications of the aorta are present. No aneurysm is identified. Lungs: Moderate emphysematous change. Areas of interlobular septal thickening and ground-glass opacification are nonspecific though suggest pulmonary edema. Areas of atelectasis in the posterior right upper lobe. Diffuse bronchial wall thickening is also likely related to pulmonary edema. Pleural spaces: Qahwnioj-ui-ctslr right pleural effusion. Byvre-ae-pelcpqas left pleural effusion. No pneumothorax. Heart: Riql-eq-twmecbqw cardiomegaly. Trace pericardial fluid may be physiologic. Heart RV/LV ratio: 0.8 Coronary arteries: Severe coronary artery calcification. Lymph nodes: No enlarged lymph nodes are identified. Bones/joints: No acute osseous abnormalities are seen. Soft tissues: The soft tissues are within normal limits. CT/CT angio chest PE protcl [id number] IMPRESSION: 1. Non opacification of multiple peripheral pulmonary arteries including the right middle lobe and bilateral lower lobes. While potentially representing extensive pulmonary emboli, non opacification due to incomplete filling with contrast is suspected particularly given mixed blood and contrast in multiple pulmonary arteries. Consider repeat CT pulmonary angiogram as indicated. 2. Qconphad-vu-btkfb right and moderate left pleural effusions with adjacent atelectasis. 3. Nonspecific interlobular septal thickening, ground-glass opacification, and diffuse bronchial wall thickening likely related to pulmonary edema.
--- NOTE | 2024-11-27 19:43 | ED_ITS ---
HPI - SOB/Dyspnea 2 General: Chief Complaint: Shortness of Breath/Dyspnea Stated Complaint: sob Time Seen by Provider: 11/27/24 19:23 History of Present Illness: HPI Narrative: Patient is an 79-year-old male with past history of AAA repair, COPD, with no history of CHF seen for orthopnea, dyspnea, inability to sleep, and bilateral lower extremity edema. He has never been diagnosed with CHF nor has he ever taken Lasix. He has no history of PE. He denies recent sickness, fever, cough to imply infectious etiology. He denies any chest pain at this time. He states that last night he could not sleep at all and that he had to sit up on the side of the bed to breathe. He states symptoms come on gradually. Related Data Home Medications ?Medication ?Instructions ?Recorded ?Confirmed albuterol sulfate 90 mcg/actuation 2 inh inhalation Q6 H PRN 05/10/23 05/10/23 breath activated powder inhaler Allergies Allergy/AdvReac Type Severity Reaction Status Date / Time No Known Allergies Allergy Verified 05/10/23 10:15 [facility] ED 2 PFSH: Medical History (Updated 11/27/24 @ 22:12 by River Nicolas MD) Urinary retention COPD (chronic obstructive pulmonary disease) CAD (coronary artery disease) Surgical History (Updated 05/10/23 @ 10:17 by Klarissa Nails LPN) S/P AAA repair Family History Mother Cancer Father Cancer Sister Chronic kidney disease (CKD) Social History (Updated 11/27/24 @ 22:08 by River Nicolas MD) Smoking and tobacco/nicotine status: current every day tobacco/nicotine user cigarettes Packs smoked per day: 1 Years cigarettes smoked: 65 Quit status (tobacco/nicotine): has quit using Former quit date comment: Just quit 9 days ago as of 11/27/2024 Alcohol intake: current Alcohol intake frequency: 0-2 Drinks per Day Alcohol type: beer Alcohol use comment: 1-2 beers a week Substance/Drug Use: never Additional social history: Patient wants DNR status does not want to be on a machine as per discussion with Dr. 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 No chest pain. Resp: OTHER: Mildly tachypneic, speaking in full sentences, no wheezes auscultated. Mild crackles in both lung bases. Somewhat prolonged expiratory phase. GI: COMMON NORMALS: Normal to inspection, nondistended, normoactive bowel sounds present, Soft to palpation and non-tender PALPATION: Yes Soft to palpation Extremity: NARRATIVE EXTREMITY EXAM: 2+ pitting edema of the bilateral legs t o the knees. Neuro: COMMON NORMALS: patient oriented x3 SENSORIUM/ORIENTATION: Yes alert Skin: COMMON NORMALS: no rashes or lesions noted GENERAL SKIN EXAM: no rashes or lesions noted Course 2 Vital Signs: Vital signs: Vital Signs Temperature 98.6 F 11/28/24 04:00 Pulse Rate 89 11/28/24 04:00 Respiratory Rate 91 H 11/28/24 04:00 Blood Pressure 100/73 11/28/24 04:00 Pulse Oximetry 91 11/28/24 04:00 Oxygen Delivery Me thod Room Air 11/28/24 04:00 Fraction of Inspir ed Oxygen 21 11/28/24 00:37 MDM - SOB/Dyspnea Medical Decision Making In summary, patient is a generally well-appearing 79-year-old male seen for shortness of breath, orthopnea, and profound dyspnea on exertion. He has pitting edema of the lower extremities. BNP has never been measured before in our system and is elevated at 16,000. I suspect fluid overload with the cause of his shortness of breath. CTA of the chest was performed to rule out PE and it also shows vascular engorgement. He was given IV Lasix and will be admitted to the hospitalist service for further observation and care. Lab Data 11/28/24 01:08 11/28/24 01:08 Labs/Radiology: Radiology Impressions Chest X-Ray 11/27/24 16:35 IMPRESSION: Mild increased hyperdensity in the left retrocardiac region likely related to atelectasis secondary to slight decreased lung volumes compared to prior study. Developing consolidation could also have this appearance. Chest CTA 11/27/24 19:42 IMPRESSION: 1. Non opacification of multiple peripheral pulmonary arteries including the right middle lobe and bilateral lower lobes. While potentially representing extensive pulmonary emboli, non opacification due to incomplete filling with contrast is suspected particularly given mixed blood and contrast in multiple pulmonary arteries. Consider repeat CT pulmonary angiogram as indicated. 2. Srgrjenu-xd-miawc right and moderate left pleural effusions with adjacent atelectasis. 3. Nonspecific interlobular septal thickening, ground-glass opacification, and diffuse bronchial wall thickening likely related to pulmonary edema. ADDENDUM: 11/27/242107 ADDENDUM: THIS REPORT CONTAINS FINDINGS THAT MAY BE CRITICAL TO PATIENT CARE. The findings were verbally communicated via telephone conference with Dr. Yarbrough at 9:05 PM CDT on 11/27/2024. The findings were acknowledged and understood. Laboratory Results WBC 5.37 10^3/uL (3.29-11.43) 11/27/24 17:14 RBC 3.22 10^6/uL (3.85-5.65) L 11/27/24 17:14 Hgb 9.80 g/dL (11.27-16.99) L 11/27/24 17:14 Hct 30.1 % (37-53) L 11/27/24 17:14 MCV 93.5 fl (82-101) 11/27/24 17:14 MCH 30.4 pg (27-33) 11/27/24 17:14 MCHC 32.6 g/dL (30-55) 11/27/24 17:14 RDW 13.7 % (12.1-15.1) 11/27/24 17:14 Plt Count 385 10^3/cmm (157-399) 11/27/24 17:14 MPV 9.2 fL (7.4-10.4) 11/27/24 17:14 Neut % (Auto) 80.6 % 11/27/24 17:14 Lymph % (Auto) 10.6 % 11/27/24 17:14 [place] % (Auto) 8.2 % 11/27/24 17:14 Eos % (Auto) 0.0 % 11/27/24 17:14 Baso % (Auto) 0.2 % 11/27/24 17:14 Neut # (Auto) 4.33 10^3/uL (1.8-7.7) 11/27/24 17:14 Lymph # (Auto) 0.6 10^3/uL (0.8-4.8) L 11/27/24 17:14 [place] # (Auto) 0.4 10^3/uL (0.2-0.9) 11/27/24 17:14 Eos # (Auto) 0.0 10^3/uL (0.0-0.8) 11/27/24 17:14 Baso # (Auto) 0.0 10^3/uL (0.0-0.1) 11/27/24 17:14 Nucleated RBC % (auto) 0 % 11/27/24 17:14 Nucleated RBCs # 0.0 /100WBC 11/27/24 17:14 Specimen Type Venous 11/27/24 21:49 Star Test Pos 11/27/24 21:49 VBG pH 7.45 (7.32-7.42) H 11/27/24 21:49 VBG pCO2 44.8 mmHg (41-51) 11/27/24 21:49 VBG pO2 20.8 mmHg (25-40) L 11/27/24 21:49 VBG HCO3 30.9 mmol/L (24-28) H 11/27/24 21:49 VBG Base Excess 6.1 mmol/L (-3.0-3.0) H 11/27/24 21:49 VBG Hematocrit 33.8 % (42-52) L 11/27/24 21:49 O2 Delivery Device Room air 11/27/24 21:49 FiO2 21.0 % 11/27/24 21:49 [employer] Supervisor ID [email or web address] 11/27/24 21:49 Sodium 130 mmol/L (136-145) L 11/27/24 17:14 Potassium 5.1 mmol/L (3.5-5.1) 11/27/24 17:14 Chloride 91 mmol/L (98-107) L 11/27/24 17:14 Carbon Dioxide 25 mmol/L (22-29) 11/27/24 17:14 Anion Gap 19.1 (5-19) H 11/27/24 17:14 BUN 14 mg/dL (8-23) 11/27/24 17:14 Creatinine 0.6 mg/dL (0.7-1.2) L 11/27/24 17:14 GFR Calculation Not Reportable 11/27/24 17:14 Glucose 141 mg/dL (65-115) H 11/27/24 17:14 Calculated Osmolality 273 mOsm/kg (285-295) L 11/27/24 17:14 Calcium 9.4 mg/dL (8.5-10.5) 11/27/24 17:14 Phosphorus 4.6 mg/dL (2.5-4.5) H 11/27/24 19:52 Magnesium 2.2 mg/dL (1.7-2.3) 11/27/24 19:52 Iron 21 ug/dL (59-158) L 11/27/24 19:52 TIBC 343 mcg/dl 11/27/24 19:52 % Saturation 6.1 % (20-50) L 11/27/24 19:52 Unsat Iron Binding 322 ug/dL (112-347) 11/27/24 19:52 Total Bilirubin 0.3 mg/dL (0.15-1.2) 11/27/24 17:14 AST 22 U/L (0-40) 11/27/24 17:14 ALT 16 U/L (0-41) 11/27/24 17:14 Alkaline Phosphatase 129 U/L (40-130) 11/27/24 17:14 Troponin T Baseline 58 ng/L (0-15) H 11/27/24 17:14 Troponin T 120 Minute 59.73 ng/L (0-15) H 11/27/24 19:52 Delta Troponin T 1.73 ABS# (0-10) 11/27/24 19:52 NT-Pro-B Natriuret Pep 06040 pg/mL (0-450) H 11/27/24 17:14 Total Protein 7.6 g/dL (6.6-8.7) 11/27/24 17:14 Albumin 4.0 g/dL (3.5-5.2) 11/27/24 17:14 Globulin 3.6 g/dL (1.3-4.6) 11/27/24 17:14 TSH 0.62 uIU/mL (0.27-4.20) 11/27/24 19:52 All radiology interpretation(s) finalized by discharge Discharge Plan Discharge Patient Disposition: Admitted As Inpatient Admit Provider: River Nicolsa Clinical Impression: CHF (congestive heart failure) Condition: Stable Coding Level of Care Code ED Hog Cutter for Carla Bentley
[2024-11-27 20:18] LABS: Troponin(5th) Baseline 58 ng/L (0-15)
[2024-11-27 20:27] LABS: NT Pro B Type Natriuretic Pept 16022 pg/mL (0-450)
[2024-11-27 20:29] LABS: Troponin 5 2HR 59.73 ng/L (0-15); Troponin 5 2HR Delta 1.73 ABS# (0-10)
[2024-11-27] MEDS: iohexol 350 mg/mL 500 mL Btl (per mL) IV (20:30)
[2024-11-27] MEDS: FUROsemide 10 mg/mL SDV 4mL 40 MG IVP (20:37)
[2024-11-27 21:34] LABS: Magnesium 2.2 mg/dL (1.7-2.3); Phosphorus 4.6 mg/dL (2.5-4.5)
--- NOTE | 2024-11-27 22:00 | P.HP_ITS ---
Providers/Chief Complaint 2 Admitting Physician: River Nicolas MD Primary Care Provider: Talita Recinos MD Chief Complaint: sob History of Present Illness Martín Pickering is a 79 year old male with orthopnea and dyspnea on exertion breathing 29 to 30 bpm when ambulating. Patient tells me that 2 weeks ago his Cook catheter was removed. This has been in place since he had abdominal aortic aneurysm stent 10/23/2024 at [facility]. Patient had trouble voiding urine after that. He was seen in the office and started on Flomax and eventually Cook removed. He thinks he is voiding urine okay now. Patient also has history of coronary artery disease found on sestamibi scan 08/[address] Collins. Patient has not yet had a stent. He had an angiogram in [place] but he thinks they were reluctant to put in the stent because he needed to have his Plavix held for aortic aneurysm graft. Patient states they went through both groins and his left axilla and put in a complex stent that spanned across the renal arteries. Patient has not had chest pain but he has had swelling in his legs already at [facility] and then now has gained 5 more pounds from 130 pounds up to 135. He has not been on diuretics outpatient. He is on inhalers and he has been using this more frequently. Patient denies chest pain or palpitations. Echo April 2022 showed LV EF 65% with grade 1 diastolic dysfunction EKG October 2021 showed sinus arrhythmia. Nuclear stress test August 2024 showed large old basal inferior lateral scar with moderate manuel-infarct ischemia. EKG shows multifocal atrial tachycardia or A-fib today with heart rate 126 Review of Systems 2 Narrative: General Positive for 5 pounds weight gain thought to be fluid no fevers chills night sweats Cardiovascular no chest pain he does have leg edema but denies palpitations Respiratory positive for orthopnea dyspnea on exertion tachypnea short of breath in general GI no nausea vomiting diarrhea constipation he had a catheter in removed 2 weeks ago. He denies hesitancy or dribbling since the catheter was removed but states he did have problems prior to. Malignancy patient reports Whipple procedure with duodenum resected for some sort of cancer that he denies was pancreatic cancer. States it was duodenal cancer Hematologic denies clots in his legs or lungs previously Medications/Allergies Home Medications ?Medication ?Instructions ?Recorded ?Confirmed ?Last Taken ?Type albuterol sulfate 90 mcg/actuation 2 inh inhalation Q6 H PRN 05/10/23 05/10/23 Unknown History breath activated powder inhaler Allergies Allergy/AdvReac Type Severity Reaction Status Date / Time No Known Allergies Allergy Verified 05/10/23 10:15 PFSH Acute 2 PFSH: Medical History (Updated 11/27/24 @ 22:12 by River Nicolas MD) Urinary retention COPD (chronic obstructive pulmonary disease) CAD (coronary artery disease) Surgical History (Updated 05/10/23 @ 10:17 by Klarissa Nails LPN) S/P AAA repair Family History Mother Cancer Father Cancer Sister Chronic kidney disease (CKD) Social History (Updated 11/27/24 @ 22:08 by River Nicolas MD) Smoking and tobacco/nicotine status: current every day tobacco/nicotine user cigarettes Packs smoked per day: 1 Years cigarettes smoked: 65 Quit status (tobacco/nicotine): has quit using Former quit date comment: Just quit 9 days ago as of 11/27/2024 Alcohol intake: current Alcohol intake frequency: 0-2 Drinks per Day Alcohol type: beer Alcohol use comment: 1-2 beers a week Substance/Drug Use: never Additional social history: Patient wants DNR status does not want to be on a machine as per discussion with Dr. 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 No loud murmurs. Distant heart sounds Lungs poor air movement throughout and distant breath sounds diminished in the bases Abdomen soft nontender bowel tones are present Calves 2+ bilateral pretibial edema no asymmetry Neuro alert and oriented times person place date Oral Mallampati 1 with upper dentures lower no dentures Data 11/27/24 17:14 11/27/24 17:14 A&P Assessment and plan (1) Atrial fibrillation with RVR: Patient restarted on metoprolol for rate control avoid inhalers diurese and replace potassium as needed magnesium and phosphorus levels are not low. Start apixaban (2) COPD (chronic obstructive pulmonary disease): Continue with prednisone. Start incentive spirometer. ABG drawn now and if pH is low we will start BiPAP. Will consider BiPAP for diuresis if not diuresing well (3) CAD (coronary artery disease): Patient needs to have a stent. Will obtain records from [facility] to see what the angiogram showed. Will notify and consult cardiology for cardiac stent consideration (4) Acute CHF (congestive heart failure): Diuresis and control of A-fib as well as stent placement to help with cardiac function (5) S/P AAA repair: He has had a complex stent placed October 23 2024. He is on aspirin and Plavix currently (6) Urinary retention: Will check postvoid residual Plan CT angiogram showed poor opacification of the bibasilar arteries but this was not discrete in the radiologist thought this could represent PE but also is a poor study and should be repeated. Because I am going to anticoagulate him anyways for A-fib I am not going to evaluate that currently. Additionally that would give him to dye loads back to back in the setting of heart failure which I think is a bad choice PDMP PDMP Reviewed: Not Reviewed Attestations 2 Medical Necessity Statement*: Patient is admitted to the hospital with A-fib rapid ventricular response and acute congestive heart failure and is expected to require greater than 2 midnights Coding Level of Care Code 45149 Diagnoses Atrial fibrillation with RVR I48.91 COPD (chronic obstructive pulmonary disease) J44.9 CAD (coronary artery disease) I25.10 Acute CHF (congestive heart failure) I50.9 S/P AAA repair Z98.890; Z86.79 Urinary retention R33.9 Time Spent (min) 70
[2024-11-27 22:01] LABS: Base Excess VBG 6.1 mmol/L (-3.0-3.0); Blood Gas Allen Test Pos; Blood Gas Operator Identificat gerca; Blood Gas Sample Type Venous; HCO3 VBG 30.9 mmol/L (24-28); Oxygen Device ROOM AIR; PCO2 VBG 44.8 mmHg (41-51); PO2 VBG 20.8 mmHg (25-40); Venous Blood Gas Hematocrit 33.8 % (42-52); pH VBG 7.45 (7.32-7.42)
[2024-11-27 22:24] LABS: Iron 21 ug/dL (59-158); Percent Saturation 6.1 % (20-50); Thyroid Stimulating Hormone 0.62 uIU/mL (0.27-4.20); Total Iron Binding Capacity 343 mcg/dl; Unsaturated Iron Binding 322 ug/dL (112-347)
[2024-11-27] MEDS: apixaban 5 mg Tablet PO (23:43)
[2024-11-27] MEDS: metoprolol tartrate 25 mg Tablet PO (23:43)
[2024-11-27] MEDS: atorvastatin 40 mg Tablet 20 MG PO (23:43)
[2024-11-27] MEDS: metoprolol tartrate 1 mg/1 mL SDV 5 mL 5 MG IVP (23:45)
[2024-11-28] VITALS (13 sets, daily range): BP systolic 96–109; BP diastolic 64–73; PULSE 83–98; RESP 16–91; TEMP 36.6–37; O2SAT 91–99
[2024-11-28] MEDS: ipratropium-albuterol 3 mL Neb INHALATION ×4 (00:32→23:28)
[2024-11-28 01:26] LABS: Basophils % 0.3 %; Eosinophils # 0.1 10^3/uL (0.0-0.8); Eosinophils % 0.7 %; Hematocrit 27.4 % (37-53); Lymphocytes # 1.5 10^3/uL (0.8-4.8); Lymphocytes % 21.4 %; Mean Corpuscular HGB Conc 32.8 g/dL (30-55); Mean Corpuscular Hemoglobin 30.2 pg (27-33); Mean Corpuscular Volume 91.9 fl (82-101); Mean Platelet Volume 9.4 fL (7.4-10.4); Monocytes % 14.3 %; Neutrophils # 4.48 10^3/uL (1.8-7.7); Neutrophils % 62.7 %; Nucleated Red Blood Cells % 0 %; Platelet Count 389 10^3/cmm (157-399); Red Blood Count 2.98 10^6/uL (3.85-5.65); Red Cell Distribution Width 13.7 % (12.1-15.1); White Blood Count 7.14 10^3/uL (3.29-11.43)
[2024-11-28 01:42] LABS: Troponin 5 6HR 78.39 ng/L (0-15)
[2024-11-28 01:45] LABS: Anion Gap 16.3 (5-19); Blood Urea Nitrogen 14 mg/dL (8-23); Calcium 9.1 mg/dL (8.5-10.5); Carbon Dioxide 27 mmol/L (22-29); Chloride 94 mmol/L (98-107); Creatinine Clr Calc Pharmacy 67.1268; Glucose 120 mg/dL (65-115); Osmolality Calculated 278 mOsm/kg (285-295); Potassium 4.3 mmol/L (3.5-5.1); Sodium 133 mmol/L (136-145)
[2024-11-28] MEDS: sodium chloride 0.9% 100 mL Bag XX (01:49)
[2024-11-28] MEDS: iron sucrose 200 MG in sodium chloride 0.9% (100 ml) 100 ML 220 MG IV ×2 (01:49→22:11)
[2024-11-28 01:58] LABS: Troponin 5 6HR Delta 20.39 ng/L (0-12)
[2024-11-28] MEDS: LORazepam 0.5 mg Tablet PO ×2 (02:28→22:03)
--- NOTE | 2024-11-28 05:24 | PC.NURSE ---
Patient hgb dropped from 9.80 to 9.00, this nurse noticed some blood in stool. Dr Nicolas was notified of situation and occult blood stool was order and eliquis was put on hold per Dr Nicolas.
--- NOTE | 2024-11-28 05:28 | PC.NURSE ---
When patient arrived to floor he was having some anxiety, Dr Nicolas was notified and new order for lorazepam 0.5mg q4h PRN was placed.
--- NOTE | 2024-11-28 07:40 | USCV_ITS ---
Martín Pickering Age: 79 Gender: M : 1945 Exam Date: 11/28/2024 09:15 Ordering Phys: Saman Vizcaino MD Technologist: [employer]R [place] [facility] [place]: swelling HISTORY: Lower extremity swelling. PROCEDURES: The venous duplex Doppler examination of both lower extremities was performed in the standard fashion. Serial compression, augmentation maneuvers, and spectral Doppler flow evaluation were performed. FINDINGS: No evidence of DVT seen in any vessel visualized at this time. CONCLUSIONS No evidence of right lower extremity DVT. No evidence of left lower extremity DVT. River Lester MD (Electronically Signed) Final Date: 28 Nov 2024 10:09 S
--- NOTE | 2024-11-28 07:40 | USCV_ITS ---
Martín Pickering Age: 79 Gender: M : 1945 Exam Date: 11/28/2024 18:45 Ordering Phys: Saman Vizcaino MD Technologist: Vineet Denson Exam Location: [facility] – [place] Indication: sob BP: 99 / 71 HR: 79 Rhythm: Sinus Technical Quality: Adequate MEASUREMENTS (Male / Female) Normal Values 2D ECHO LV Diastolic Diameter PLAX 5.5 cm 4.2 - 5.9 / 3.9 - 5.3 cm IVS Diastolic Thickness 1.4 cm 0.6 - 1.0 / 0.6 - 0.9 cm IVS Systolic Thickness 1.8 cm LVPW Diastolic Thickness 1.8 cm 0.6 - 1.0 / 0.6 - 0.9 cm LVPW Systolic Thickness 1.7 cm LVOT Diameter 2.3 cm LV Ejection Fraction 2D Teich 31.2 % LV Ejection Fraction MOD 4C 36.9 % LV Ejection Fraction MOD 2C 29.3 % LV Ejection Fraction 2C AL 27.3 % LA Diameter 4.5 cm RA Systolic Volume 4C AL 53.3 ml RA Systolic Volume 4C MOD 51.0 ml LA Sys Volume AL 53.4 cm cubed LA Sys Volume Index AL 32.0 cm cubed/m squared Aorta at Sinotubular Diameter 2.6 cm IVC Diameter 2.6 cm M-MODE LA Ao Ratio MM 1.3 AV Cusp Separation MM 0.9 cm DOPPLER AV Peak Velocity 177.3 cm/s LVOT Peak Velocity 74.0 cm/s AV Area Cont Eq vti 1.9 cm squared AV Area Cont Eq pk 1.7 cm squared MV Peak Velocity 84.0 cm/s MV Area PHT 6.6 cm squared Mitral E to A Ratio 1.5 TV Peak Velocity 337.8 cm/s TR Peak Velocity 371.0 cm/s TR Peak Gradient 55.1 mmHg TR Mean Velocity 273.0 cm/s TR Mean Gradient 33.0 mmHg TR Velocity Time Integral 116.3 cm PV Peak Velocity 89.0 cm/s RV Ejection Time 0.3 s FINDINGS Left Ventricle Left ventricle is mildly dilated. LV systolic function severely reduced with EF of 25-30%. Severe global hypokinesis. Right Ventricle Normal in size and function Right Atrium Normal in size Left Atrium Dilated Mitral Valve Mild mitral annular calcification. Mild mitral regurgitation. Aortic Valve Aortic valve is thickened and calcified. Mild aortic stenosis with aortic valve area 1.9 cm squared and mean gradient of 8 mmHg. Mild aortic regurgitation. Tricuspid Valve Mild tricuspid regurgitation. RVSP is 40 to 45 mmHg. This is consistent with mild pulmonary hypertension Pulmonic Valve Trace pulmonic regurgitation. Pericardium Normal Aorta Normal size ascending aorta IVC Dilated CONCLUSIONS LV systolic function is severely reduced with EF of 25-30% Left atrial dilation Mild aortic stenosis. Mild aortic regurgitation Mild tricuspid regurgitation Mild pulmonary hypertension Trace pulmonic regurgitation IVC is dilated Compared to prior echocardiogram from 2021, LV systolic function has decreased significantly. Reed Roca MD (Electronically Signed) Final Date: 29 Nov 2024 12:53 S
--- NOTE | 2024-11-28 07:59 | USCV_ITS ---
Ladan Martín Age: 79 Gender: M : 1945 Exam Date: 11/28/2024 09:02 Ordering Phys: Saman Vizcaino MD Technologist: USR [place] [facility] [place]: AAA with stent to iliacs HISTORY: Diameter (cm) AP x Transverse x Length Velocity (cm/s) Waveform Prox Aorta: 1.80 x 2.30 x 71.10 Mid Aorta: 4.10 x 3.60 x 35.50 Distal Aorta: 3.30 x 3.70 x 38.30 Right Iliac Prox: 1.25 x 1.12 x 34.80 Left Iliac Prox: 1.32 x 2.12 x 51.60 Stent Prox Landing x x Aneurysmal Sac Max x x Lt Lat Sac Dim Rt Lat Sac Dim Stent Dist Landing x x Right Iliac Stent x x Left Iliac Stent x x Right Renal Art Left Renal Art FINDINGS: CONCLUSIONS Endograft with iliac extension is patent Mid aneurysm sac measures 4.1 x 3.6cm Distal sac measures 3.3 x 3.7cm Proximal iliac arteries are patent River Lester MD (Electronically Signed) Final Date: 28 Nov 2024 10:13 S
[2024-11-28] MEDS: potassium chloride ER 20 mEq Tablet PO ×2 (08:27→17:50)
[2024-11-28] MEDS: sucralfate 1 gm Tablet PO ×2 (08:27→22:02)
[2024-11-28] MEDS: docusate sodium 100 mg Capsule PO (08:27)
[2024-11-28] MEDS: famotidine 20 mg Tablet PO (08:27)
[2024-11-28] MEDS: clopidogrel 75 mg Tablet PO (08:27)
[2024-11-28] MEDS: azithromycin 250 mg Tablet PO (08:27)
[2024-11-28] MEDS: FUROsemide 10 mg/mL SDV 4mL 40 MG IVP (08:27)
[2024-11-28] MEDS: predniSONE 20 mg Tablet PO (08:27)
[2024-11-28] MEDS: tamsulosin 0.4 mg Capsule PO (08:27)
[2024-11-28] MEDS: pantoprazole 40 mg SDV IVP ×2 (08:27→22:02)
[2024-11-28] MEDS: metoprolol tartrate 25 mg Tablet PO ×2 (08:30→22:02)
[2024-11-28 09:00] LABS: Reticulocyte % 2.6 % (0.5-2.0)
[2024-11-28 09:17] LABS: Ferritin 57 ng/mL (30-400)
[2024-11-28 09:19] LABS: D Dimer 2.26 ug/mLFEU (0-0.59)
--- NOTE | 2024-11-28 10:49 | PC.NURSE ---
Notified hospitalist Talked to dr Vizcaino via voalte messenger on pt's bladder scan volume shows 597 mls. pt stated he will hold off on french catheter. Notified Dr vizcaino and received response back to bladder scan in 4 hrs. 11 am- pt voided 300mls in the urinal.
--- NOTE | 2024-11-28 10:59 | P.CONIM_ITS ---
<Statement entered by Reed Roca M.D - 11/29/24 14:27> Patient was evaluated and cared for in conjunction with an advanced practice practitioner.? I personally examined the patient and reviewed the chart and all pertinent data including imaging, telemetry, and laboratory results.? I discussed the patient in detail with the advanced practice practitioner.? Please see? their note for complete progress note, testing results and agreed upon plan of care for the patient. We will obtain records from [place] where prior cardiac catheterization was done. Will also obtain echocardiogram. Continue diuresis. Possible PE however CTA was of limited quality. Continue anticoagulation. GENERAL: Patient is alert, awake and oriented x3. HEART: Regular S1 and S2 LUNGS: Diminished air entry bilaterally CENTRAL NERVOUS SYSTEM: Grossly nonfocal. EXTREMITIES: Lower extremities with 1+ edema Providers/Reason For Consult 2 Consulting Physician/Specialty*: Dr Roca, cardiology Reason for Consult*: abnormal stress test Requesting Physician: Saman Vizcaino MD Attending Physician: Saman Vizcaino MD Primary Care Provider: Talita Recinos MD History of Present Illness History of Present Illness Martín Pickering is a 79 year old male with past medical history of abdominal aortic aneurysm status post stenting 10/23/2024 at [facility], CAD (intervention delayed due to surgery for aortic aneurysm). He was admitted to the hospital yesterday due to dyspnea on exertion, orthopnea, weight gain of 5 pounds, lower extremity edema. He had a stress test performed in August of this year showing large area of fixed defect in the basal distal inferior inferolateral trimble, surrounded by medium area of moderate manuel-infarct ischemia suggesting lesion in May circumflex or RCA. LVEF normal on the stress test. Echocardiogram has been ordered and pending for today. Venous duplex just performed, negative for DVT bilateral lower extremities. CT of the chest performed yesterday has concern for possible PE in the right middle and bilateral lower lobes however complete filling with contrast is suspected. He also has iron deficiency anemia, hemoglobin 9.7 this morning. He has been started on iron replacement. Stool was Hemoccult positive, anticoagulation held after 1 dose of Eliquis (for possible atrial fibrillation and PE) was given, hemoglobin dropped from 9.8 to 9.0. At the time of my exam he does not have chest pain, and has not reported any this admission. Shortness of breath is improved, trace LE edema currently. Troponin series: 58->59-> 78. BNP over 16,000. Review of Systems 2 Const: Reports: change in weight; Denies: fever(s), chills, fatigue or diaphoresis Eyes: Denies: change in vision ENMT: Denies: epistaxis Card: Reports: edema, dyspnea on exertion and orthopnea; Denies: chest pain, palpitations, irregular heart rhythm, syncope, pre-syncope or leg pain with exertion Resp: Denies: dyspnea, productive cough or wheezing GI: Denies: nausea, vomiting, hematemesis, hematochezia or melena : Denies: hematuria Musc: Denies: extremity swelling Rigo/Lymph: Denies: easy bruising or easy bleeding Medications/Allergies Home Medications ?Medication ?Instructions ?Recorded ?Confirmed ?Last Taken ?Type albuterol sulfate 90 mcg/actuation 2 inh inhalation Q6 H PRN copd 05/10/23 11/28/24 11/27/24 History breath activated powder inhaler aspirin 81 mg tablet,delayed 81 mg PO DAILY 11/28/24 0 11/28/24 11/27/24 History release azithromycin 250 mg tablet See Rx Instructions .Route .COMPLEX 11/28/24 11/28/24 11/27/24 History clopidogrel 75 mg tablet 75 mg PO DAILY 11/28/24 05/11/27/24 History ipratropium 20 mcg-albuterol 100 1 puff inhalation KARIS LY 11/28/24 11/28/24 11/27/24 History mcg/actuation mist for inhalation (Combivent Respimat) oxycodone 5 mg tablet 5 mg PO Q6H PRN Pain 5 11/28/24 Unknown History prednisone 20 mg tablet 40 mg PO DAILY 11/28/24 05/11/27/24 History rosuvastatin 20 mg tablet 20 mg PO DAILY 11/28/24/11/27/24 History tamsulosin 0.4 mg capsule 0.4 mg PO DAILY 11/28/2411/27/24 History vitamin E 268 mg (400 unit) capsule 268 mg PO DAILY 11/28/24 11/27/24 History Allergies Allergy/AdvReac Type Severity Reaction Status Date / Time No Known Allergies Allergy Verified 05/10/23 10:15 Current Medications Generic Name Dose Route Start Last Admin Trade Name Milanq PRN Reason Stop Dose Admin Albuterol/Ipratropium 3 ml 11/28/24 00:26 11/28/24 07:50 Ipratropium-Albuterol 3 Ml Neb INHALATION 3 ml Q6H PRN Administration SHORTNESS OF BREATH Atorvastatin Calcium 20 mg 11/27/24 23:12 11/27/24 23:43 Atorvastatin 40 Mg Tablet PO 20 mg BEDTIME ANTONIA Administration Azithromycin 250 mg 11/28/24 09:00 11/28/24 08:27 Azithromycin 250 Mg Tablet PO 250 mg DAILY ANTONIA Administration Protocol Clopidogrel Bisulfate 75 mg 11/28/24 09:00 11/28/24 08:27 Clopidogrel 75 Mg Tablet PO 75 mg DAILY ANTONIA Administration Docusate Sodium 100 mg 11/28/24 09:00 11/28/24 08:27 Docusate Sodium 100 Mg Capsule PO 100 mg BID ANTONIA Administration Famotidine 20 mg 11/28/24 09:00 11/28/24 08:27 Famotidine 20 Mg Tablet PO 20 mg BID ANTONIA Administration Furosemide 40 mg 11/28/24 09:00 11/28/24 08:27 Furosemide 10 Mg/Ml Sdv 4ml IVP 40 mg BID ANTONIA Administration Iron Sucrose 200 mg/ Sodium 110 mls @ 220 mls/hr 11/27/24 23:00 11/28/24 02:28 Chloride IV 12/01/24 23:29 Infused Q24H ANTONIA Infusion Lorazepam 0.5 mg 11/28/24 00:54 11/28/24 02:28 Lorazepam 0.5 Mg Tablet PO 0.5 mg Q4H PRN Administration ANXIETY Metoprolol Tartrate 25 mg 11/27/24 21:45 11/28/24 08:30 Metoprolol Tartrate 25 Mg Tablet PO 25 mg BID@0900,2100 ANTONIA Administration Pantoprazole Sodium 40 mg 11/28/24 07:45 11/28/24 08:27 Pantoprazole 40 Mg Sdv IVP 40 mg Q12H ANTONIA Administration Potassium Chloride 20 meq 11/28/24 09:00 11/28/24 08:27 Potassium Chloride Er 20 Meq Tablet PO 20 meq BID ANTONIA Administration Prednisone 20 mg 11/28/24 09:00 11/28/24 08:27 Prednisone 20 Mg Tablet PO 20 mg DAILY ANTONIA Administration Sucralfate 1 gm 11/28/24 07:45 11/28/24 08:27 Sucralfate 1 Gm Tablet PO 1 gm Q12H ANTONIA Administration Tamsulosin HCl 0.4 mg 11/28/24 09:00 11/28/24 08:27 Tamsulosin 0.4 Mg Capsule PO 0.4 mg DAILY ANTONIA Administration PFSH Acute 2 PFSH: Medical History Urinary retention COPD (chronic obstructive pulmonary disease) CAD (coronary artery disease) Surgical History S/P AAA repair Family History Mother Cancer Father Cancer Sister Chronic kidney disease (CKD) Social History Smoking and tobacco/nicotine status: current every day tobacco/nicotine user cigarettes Packs smoked per day: 1 Years cigarettes smoked: 65 Quit status (tobacco/nicotine): has quit using Former quit date comment: Just quit 9 days ago as of 11/27/2024 Alcohol intake: current Alcohol intake frequency: 0-2 Drinks per Day Alcohol type: beer Alcohol use comment: 1-2 beers a week Substance/Drug Use: never Additional social history: Patient wants DNR status does not want to be on a machine as per discussion with Dr. 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 Vitals/I&O/Wt Last Vital Signs Temp 97.8 F 11/28/24 08:00 Pulse 89 11/28/24 08:00 Resp 22 H 11/28/24 08:00 BP 109/73 11/28/24 08:00 Pulse Ox 91 11/28/24 08:00 O2 Del Method Room Air 11/28/24 08:00 FiO2 21 11/28/24 00:37 11/27/24 11/28/24 11/28/24 22:59 06:59 14:59 Intake Total 210 / 210 240 / 240 Balance 210 / 210 240 / 240 Weight last 48 hrs Weight 129 lb 12.8 oz Weight 135 lb Weight 130 lb Physical Exam 2 Const: COMMON NORMALS: no acute distress and patient oriented x3 GENERAL APPEARANCE: cooperative and comfortable ORIENTATION/CONSCIOUSNESS: Yes awake, Yes oriented to person, Yes oriented to place and Yes oriented to time Chest: COMMONS NORMALS: normal inspection of the chest and normal palpation of entire chest wall CHEST: Yes Symmetrical chest wall rise Resp: COMMON NORMALS: normal respiratory effort, No retractions and No use of accessory muscles EFFORT & INSPECTION: Yes symmetric chest movement A USCULTATION: wheezes expiratory wheezes, left lower, left upper, anterior and posterior Cardio: COMMON NORMALS: regular rate, regular rhythm, S1 normal heart sound present, S2 normal heart sound present, No gallops present (Cardio), No clicks present (Cardio), No murmurs present (Cardio) and No rub (Cardio) RATE: r egular rate RHYTHM: regular rhythm HEART SOUNDS: S1 normal heart sound present and S2 normal heart sound present PERIPHERAL PULSES: radial pulses present Extremity: GENERAL: Yes edema (trace edema bilateral ankles) Neuro: COMMON NORMALS: patient oriented x3 and moves all extremities S ENSORIUM/ORIENTATION: Yes oriented to person, Yes oriented to place and Yes oriented to time Data 11/28/24 08:33 11/28/24 01:08 Micro: Microbiology 11/28/24 05:10 Occult Blood (FIT) - Final Stool - Stool Aspirate A&P Assessment and plan (1) CAD (coronary artery disease): (2) CHF (congestive heart failure): (3) S/P AAA repair: Plan Will await echocardiogram before recommending further plan. Since he does not have chest pain he does not require coronary angiogram urgently. I do not see any atrial fibrillation on his telemetry so far, however he does have some frequent PACs and PVCs. He is starting on heparin drip for NSTEMI, currently checking H&H every 4 hours to monitor for drop in hemoglobin. PDMP PDMP Reviewed: Not Reviewed Coding Level of Care Code Acute Code for [facility] Fwd Diagnoses CAD (coronary artery disease) I25.10 CHF (congestive heart failure) I50.9 S/P AAA repair Z98.890; Z86.79
[2024-11-28 11:14] LABS: Bilirubin Urine Negative (Negative); Blood Urine Negative (Negative); Glucose Urine UA Negative (Normal); Ketones Urine Negative (Negative); Leukocyte Esterase Urine Negative (Negative); Nitrate Urine Negative (Negative); Protein Urine Negative (Negative); Specific Gravity, Urine 1.013 (1.005-1.030); Urine Appearance Clear (CLEAR); Urine Color Yellow (Yellow); Urobilinogen Urine 0.2 mg/dL (Negative)
[2024-11-28 11:19] LABS: Add Urine Microscopic? YES; Bacteria Urine None Seen /hpf; Hyaline Casts Urine 2.87 /lpf; RBC Urine 0-2 /hpf (0-2); Squamous Epithelial Cell Urine 0-5 /hpf (0-5); WBC Urine 0-5 /hpf (0-5)
[2024-11-28 12:06] LABS: Hematocrit 28.4 % (37-53); Platelet Count 376 10^3/cmm (157-399)
[2024-11-28] MEDS: heparin drip 25,000 UNIT/500 ML PREMIX 17 UNIT IV (12:14)
--- NOTE | 2024-11-28 14:39 | PM.PN ---
Subjective Subjective: - Patient was seen this morning - Currently alert oriented x 2, following all commands, patient's granddaughter is at bedside - Currently is on 1 L - He does report shortness of breath, denies any fevers, no chills, no cough - He denies any blood black stools, no history of requiring blood transfusions - Patient recently was at [facility] had an extensive surgery for an endoleak - Granddaughter tells me that after the surgery he was kept in the ICU for over 9 days due to concerns for pneumonia - During that hospitalization he was developing increased lower extremity edema but there concerns were not addressed - He since getting home has been more bedbound, less mobile with increased lower extreme edema and shortness of breath - He denies any fevers, no chills, no cough, no hemoptysis - Denies being on blood thinners - She tells me granddaughter that recently primary care provider started Plavix - Discussed with family CT scan findings,1. Non opacification of multiple peripheral pulmonary arteries including the right middle lobe and bilateral lower lobes. While potentially representing extensive pulmonary emboli, non opacification due to incomplete filling with contrast is suspected particularly given mixed blood and contrast in multiple pulmonary arteries. Consider repeat CT pulmonary angiogram as indicated. with elevated D-dimer, finding suspicious for pulmonary embolism, - Will order venous ultrasound -, Cardiac echocardiogram ordered - Certainly this is a difficult situation especially with patient's acute anemia and Hemoccult positive stools - Given patient's relative immobility, recent surgery, CT scan findings as above elevated D-dimer for now I will place patient on anticoagulant therapy - This risk and benefits, patient and family voiced understanding, all questions answered, agreed to proceed - Plan is to monitor hemoglobin every 4 hours, he did receive Eliquis at about 11 PM last night we will switch to a heparin drip so we can watch his hemoglobin closely he does have an elevated BNP - Over 16,000, but clinically does not appear fluid overloaded and lower extremity edema is minimal, he will receive 1 dose of Lasix today, will hold Lasix thereafter - Spoke to cardiology, will consult Vitals/I&O/Wt Last Vital Signs Temp 97.8 F 11/28/24 12:00 Pulse 87 11/28/24 12:00 Resp 19 H 11/28/24 12:00 BP 96/64 11/28/24 12:00 Pulse Ox 98 11/28/24 12:00 O2 Del Method Nasal Cannula 11/28/24 12:00 FiO2 21 11/28/24 00:37 11/27/24 11/28/24 11/28/24 22:59 06:59 14:59 Intake Total 210 / 210 460 / 460 Output Total 300 / 300 Balance 210 / 210 160 / 160 Weight last 48 hrs Weight 58.876 kg Weight 61.235 kg Weight 58.967 kg Physical Exam Const: COMMON NORMALS: no acute distress ORIENTATION/CONSCIOUSNESS: Yes awake, Yes oriented to person, Yes oriented to place and Yes oriented to time Eye: COMMON NORMALS: Equal, round and reactive pupils present PUPIL: Yes Equal, round and reactive pupils present Resp: COMMON NORMALS: normal respiratory effort, No retractions and No use of accessory muscles AUSCULTATION: crackles Cardio: COMMON NORMALS: regular rate, regular rhythm, S1 normal heart sound present and S2 normal heart sound present RATE: regular rate RHYTHM: regular rhythm HEART SOUNDS: S1 normal heart sound present and S2 normal heart sound present GI: COMMON NORMALS: Normal to inspection, nondistended, normoactive bowel sounds present and non-tender : COMMON NORMALS: Yes no CVA tenderness BLADDER/KIDNEY EXAM: Yes no CVA tenderness Back/Pelvis: COMMON NORMALS: no CVA tenderness Extremity: COMMON NORMALS: no pedal edema Neuro: SENSORIUM/ORIENTATION: Yes oriented to person, Yes oriented to place and Yes oriented to time Skin: NARRATIVE SKIN EXAM: Bilateral muscle wasting bilateral ribs fat pad thinning, fat pad thinning under bilateral clavicles, temporal muscle wasting Data 11/28/24 11:46 11/28/24 01:08 Micro: Microbiology 11/28/24 05:10 Occult Blood (FIT) - Final Stool - Stool Aspirate A&P Assessment and plan (1) Atrial fibrillation with RVR: (2) COPD (chronic obstructive pulmonary disease): (3) CAD (coronary artery disease): (4) Acute CHF (congestive heart failure): (5) S/P AAA repair: (6) Urinary retention: (7) Acute anemia: (8) NSTEMI (non-ST elevated myocardial infarction): (9) Pulmonary embolism: (10) Acute hypoxic respiratory failure: (11) CHF (congestive heart failure): (12) Systolic CHF: (13) Pneumonia: (14) Physical deconditioning: (15) Protein calorie malnutrition: (16) Current smoker: Plan Possible pulmonary embolism? - [facility] patient has been more bedbound - Has NSTEMI, D-dimer 2.26 - Venous ultrasound negative for DVT CT/CT angio chest PE protcl [id number] IMPRESSION: 1. Non opacification of multiple peripheral pulmonary arteries including the right middle lobe and bilateral lower lobes. While potentially representing extensive pulmonary emboli, non opacification due to incomplete filling with contrast is suspected particularly given mixed blood and contrast in multiple pulmonary arteries. Consider repeat CT pulmonary angiogram as indicated. Plan - High risk of contrast-induced nephropathy, by performing repeat CT angiogram today - Will watch kidney function closely - Consider repeat CT angiogram in the near future - For now start heparin drip - My monitor hemoglobin every 4 hours Acute hypoxic respiratory failure - Multifactorial - Concerns for systolic CHF, BNP over 16,000, - Does have bilateral pleural effusions - Does not look clinically fluid overloaded, 1+ pitting edema - Does have imaging concerning for moderate to right large pleural effusion, moderate left pleural effusion - Concerns for possible pneumonia CT imaging 2. Gzbzwnmo-ay-okxil right and moderate left pleural effusions with adjacent atelectasis. 3. Nonspecific interlobular septal thickening, ground-glass opacification, and diffuse bronchial wall thickening likely related to pulmonary edema. Plan -Monitor respiratory status closely -Oxygen therapy -Lasix 40 IV twice daily -fluid restriction 1000cc -Potassium, creatinine -Cardiac echo - Rocephin -Azithromycin -Sputum culture -Blood culture NSTEMI - Serial EKGs, serial troponins, telemetry monitoring - No chest pain complaints - Continue Plavix - Statin - Continue heparin drip Acute anemia -Hemoccult positive stool -Denies any bloody or black stools, denies any history of blood transfusions -Will start on Protonix, Carafate -Monitor hemoglobin every 4 hours -Is on heparin drip as above -Discussed risk and benefits with patient, patient and family voiced understanding, all questions answered, shared decision making, agreed to proceed Recent history of AAA repair due to concerns for endoleak -At [facility], hospitalization complicated by postoperative pneumonia Ultrasound abdominal aorta CONCLUSIONS Endograft with iliac extension is patent Mid aneurysm sac measures 4.1 x 3.6cm Distal sac measures 3.3 x 3.7cm Proximal iliac arteries are patent COPD, current smoker - DuoNeb as needed Physical deconditioning, protein, malnutrition, BMI 19.7 - Encourage protein shakes - Dietary eval Full code Heparin drip for DVT prophylaxis PDMP PDMP Reviewed: Not Reviewed Attestations Medical Necessity Statement*: Patient requires hospitalization for acute hypoxic respiratory failure, systolic CHF, pneumonia, possible pulm embolism, NSTEMI, acute anemia Diagnoses Atrial fibrillation with RVR I48.91 COPD (chronic obstructive pulmonary disease) J44.9 CAD (coronary artery disease) I25.10 Acute CHF (congestive heart failure) I50.9 S/P AAA repair Z98.890; Z86.79 Urinary retention R33.9 Acute anemia D64.9 NSTEMI (non-ST elevated myocardial infarction) I21.4 Pulmonary embolism I26.99 Acute hypoxic respiratory failure J96.01 CHF (congestive heart failure) I50.9 Systolic CHF I50.20 Pneumonia J18.9 Physical deconditioning R53.81 Protein calorie malnutrition E46 Current smoker F17.200
[2024-11-28] MEDS: cefTRIAXone 1,000 mg SDV 1000 MG IVP (15:22)
[2024-11-28 15:34] LABS: Hematocrit 28.3 % (37-53)
[2024-11-28 16:01] LABS: Troponin T (5th) Once 57 ng/L (0-15)
[2024-11-28 16:03] LABS: C Reactive Protein 9.8 mg/L (0.0-4.9)
[2024-11-28 16:08] LABS: Procalcitonin 0.07 ng/mL (0-0.5)
[2024-11-28] MEDS: nicotine 21 mg Patch 1 PATCH TRANSDERMA (17:50)
[2024-11-28 19:17] LABS: Partial Thromboplastin Time 43.4 SECONDS (23.9-36.7)
[2024-11-28 19:33] LABS: Hematocrit 26.7 % (37-53)
[2024-11-28] MEDS: atorvastatin 40 mg Tablet 20 MG PO (22:02)
[2024-11-28 23:43] LABS: Hematocrit 26.1 % (37-53)
[2024-11-29] VITALS (80 sets, daily range): BP systolic 80–117; BP diastolic 48–78; PULSE 72–100; RESP 5–40; TEMP 36.6–37.3; O2SAT 87–99
[2024-11-29 01:47] LABS: Partial Thromboplastin Time 86.9 SECONDS (23.9-36.7)
[2024-11-29] MEDS: ipratropium-albuterol 3 mL Neb INHALATION ×2 (03:58→10:39)
[2024-11-29 05:47] LABS: Basophils % 0.4 %; Eosinophils # 0.2 10^3/uL (0.0-0.8); Hematocrit 26.3 % (37-53); Lymphocytes % 26.6 %; Mean Corpuscular HGB Conc 31.9 g/dL (30-55); Mean Corpuscular Hemoglobin 30.1 pg (27-33); Mean Corpuscular Volume 94.3 fl (82-101); Mean Platelet Volume 9.6 fL (7.4-10.4); Monocytes # 1.1 10^3/uL (0.2-0.9); Monocytes % 14.4 %; Neutrophils # 4.22 10^3/uL (1.8-7.7); Neutrophils % 56.2 %; Nucleated Red Blood Cells % 0 %; Platelet Count 347 10^3/cmm (157-399); Red Blood Count 2.79 10^6/uL (3.85-5.65); Red Cell Distribution Width 13.5 % (12.1-15.1); White Blood Count 7.51 10^3/uL (3.29-11.43)
[2024-11-29 05:58] LABS: Alanine Aminotransferase 16 U/L (0-41); Albumin Level 3.3 g/dL (3.5-5.2); Alkaline Phosphatase 103 U/L (40-130); Anion Gap 13.3 (5-19); Aspartate Amino Transferase 17 U/L (0-40); Blood Urea Nitrogen 16 mg/dL (8-23); C Reactive Protein 8.6 mg/L (0.0-4.9); Calcium 8.8 mg/dL (8.5-10.5); Carbon Dioxide 28 mmol/L (22-29); Chloride 87 mmol/L (98-107); Creatinine Clr Calc Pharmacy 66.1603; Globulin 3.1 g/dL (1.3-4.6); Glucose 140 mg/dL (65-115); Magnesium 1.8 mg/dL (1.7-2.3); Osmolality Calculated 261 mOsm/kg (285-295); Phosphorus 4.2 mg/dL (2.5-4.5); Potassium 4.3 mmol/L (3.5-5.1); Sodium 124 mmol/L (136-145); Total Bilirubin 0.2 mg/dL (0.15-1.2); Total Protein 6.4 g/dL (6.6-8.7)
[2024-11-29 06:04] LABS: NT Pro B Type Natriuretic Pept 9260 pg/mL (0-450); Procalcitonin 0.06 ng/mL (0-0.5)
--- NOTE | 2024-11-29 07:00 | XRR_ITS ---
PROCEDURE INFORMATION: Exam: XR Chest Exam date and time: 11/29/2024 8:43 AM Age: 79 years old Clinical indication: Shortness of breath; Prior surgery; Surgery date: 6+ months; Surgery type: Aaa; SOB; HX copd; Fluid retention TECHNIQUE: Imaging protocol: Radiologic exam of the chest. Views: 1 view. COMPARISON: CT angio chest PE protcl [id number] 11/27/2024 8:27 PM FINDINGS: Lungs: Bibasilar opacities are similar to prior. No new airspace disease. Pleural spaces: Persistent small bilateral pleural effusions. Heart/Mediastinum: Stable cardiomediastinal silhouette. Vasculature: Tortuous thoracic aorta with atherosclerotic calcifications. Aortic endovascular stent graft partially imaged. Bones/joints: Unremarkable. XR/XR chest 1V portable [id number] IMPRESSION: Ongoing small bilateral pleural effusions with bibasilar atelectasis versus infiltrate.
[2024-11-29 08:10] LABS: Hematocrit 28.2 % (37-53)
[2024-11-29 09:34] LABS: Partial Thromboplastin Time 62.8 SECONDS (23.9-36.7)
[2024-11-29] MEDS: potassium chloride ER 20 mEq Tablet PO (09:35)
[2024-11-29] MEDS: tamsulosin 0.4 mg Capsule PO (09:35)
[2024-11-29] MEDS: sucralfate 1 gm Tablet PO ×2 (09:35→19:31)
[2024-11-29] MEDS: predniSONE 20 mg Tablet PO (09:36)
[2024-11-29] MEDS: clopidogrel 75 mg Tablet PO (09:36)
[2024-11-29] MEDS: docusate sodium 100 mg Capsule PO ×2 (09:36→17:37)
[2024-11-29] MEDS: metoprolol tartrate 25 mg Tablet PO (09:36)
[2024-11-29] MEDS: nicotine 21 mg Patch 1 PATCH TRANSDERMA (09:36)
[2024-11-29] MEDS: pantoprazole 40 mg SDV IVP ×2 (09:37→19:31)
[2024-11-29] MEDS: AZITHROMYCIN ADD-Vantage 500 MG in 0.9% NaCl ADD-Vantage 250 ML 250 MG IV (09:37)
[2024-11-29] MEDS: FUROsemide 10 mg/mL SDV 4mL 40 MG IVP ×2 (09:37→17:37)
[2024-11-29 10:09] LABS: Anion Gap 14.4 (5-19); Blood Urea Nitrogen 16 mg/dL (8-23); Calcium 8.6 mg/dL (8.5-10.5); Carbon Dioxide 25 mmol/L (22-29); Chloride 86 mmol/L (98-107); Creatinine Clr Calc Pharmacy 66.1603; Glucose 114 mg/dL (65-115); Osmolality Calculated 254 mOsm/kg (285-295); Potassium 4.4 mmol/L (3.5-5.1); Sodium 121 mmol/L (136-145)
--- NOTE | 2024-11-29 11:31 | PC.CHAP ---
Pastoral Care Encounter/Spiritual Assessment Type of Contact [X] Declined day habilitation specialist visit [] Patient/Family/Request visit [] Outpatient visit [] Follow-up visit [] Physician referral [] Code/Alert [] Routine visit [] Staff referral [] Actively dying [] Patient sleeping [] Family support [] [] Out of room [] Palliative care [] [] Receiving care in room [] Pre-surgical visit [] Trauma [] Long length of stay [] ICU visit [] Other: Relational/Emotional Strength [] Patient feels connected with others/family/visitors/staff [] Distress [] Loneliness/isolation [] Abandonment Spirituality of Patient [] Person of Sally [] Attends Hoahaoism of their Sally [] Believes in Prayer [] Reads Bible or Jew materials [] There are Spiritual issues to be addressed Manager [employer] Interventions [] Prayer [] Active listening [] Non-anxious presence [] Spiritual/emotional support [] Crisis/trauma care [] Spiritual counseling [] Bereavement support [] Provided bereavement packet [] Provided Bible/devotional materials [] Provided toy/stuffed animal, coloring book to patient or family member [] Provided Communion [] Anointing/[place] [] Salvation [] Completed spiritual assessment [] Other: Impact on Illness or Injury [] Angry [] Fearful [] Anxious [] Often cries [] Exhaustion [] Unable to work [] Unable to attend restorationist [] Unable to walk/stand [] Unable to read [] Unable to drive [] Unable to eat/drink [] Unable to sleep [] Unable to be with family [] Patient intubated [] Other: Summary Time spent with patient
--- NOTE | 2024-11-29 11:37 | PC.NURSE ---
Provider is updated that patient is complaining of shortness of breath. His O2 stats at in the 90's. Provider is placing orders for ABG's. Respiratory is notified.
[2024-11-29 11:45] LABS: ABG PCO2 40.5 mmHg (35-45); ABG PH Result 7.43 (7.35-7.45); Alveolar-Arterial Oxygen Gradi 3.2 mmHg (5-10); Arterial Blood Gas Hematocrit 27.5 % (42-52); Base Excess ABG 2.1 mmol/L (-2.0-2.0); Blood Gas Allen Test Pos; Blood Gas Operator Identificat WALCI; Blood Gas Sample Site Radial, right; Blood Gas Sample Type Arterial; Carboxyhemoglobin 1.6 %THgb (0.4-20.1); HCO3 ABG 26.7 mmol/L (22-26); HGB O2 Sat 93.2 % (95-100); Ionized Calcium Level - ABG 1.2 mmol/L (1.1-1.4); Oxygen Device NC; Oxygen Saturation ABG 95.7; PO2 ABG 74.5 mmHg (80.0-100.0); Potassium Level - ABG 4.9 mmol/L (3.5-5.0)
[2024-11-29] MEDS: metOLazone 5 MG Tablet PO (12:11)
--- NOTE | 2024-11-29 12:15 | PC.NURSE ---
Heparin drip still has volume.
[2024-11-29] MEDS: LORazepam 0.5 mg Tablet PO (12:22)
--- NOTE | 2024-11-29 12:29 | PC.NURSE ---
Provider updated with Mr Pickering, his BP's are soft : 80/53, 86/57, 82/57, and 80/52 manually. HR of 78-80. He says he just doesn't feel good. Provider ordered to keep patient in bed and monitor.
--- NOTE | 2024-11-29 12:59 | P.PN_ITS ---
Subjective 2 Subjective: Patient is volume overloaded. Appears to be an early shock Vitals/I&O/Wt Last Vital Signs Temp 97.8 F 11/29/24 11:52 Pulse 76 11/29/24 11:52 Resp 22 H 11/29/24 11:52 BP 80/52 11/29/24 12:02 Pulse Ox 96 11/29/24 11:52 O2 Del Method Nasal Cannula, Oxymask 11/29/24 11:52 O2 Flow Rate 2 11/29/24 11:52 FiO2 21 11/28/24 00:37 11/28/24 11/29/24 11/29/24 22:59 06:59 14:59 Intake Total 126.083 / 586.083 228.75 / 814.833 624.017 / 624.017 Output Total 600 / 900 250 / 1150 Balance -473.917 / -313.917 -21.25 / -335.167 624.017 / 624.017 Weight last 48 hrs Weight 141 lb 1.6 oz Weight 129 lb 12.8 oz Weight 135 lb Weight 130 lb Physical Exam 2 Narrative: GENERAL: Patient is alert, awake and oriented x3. [] NECK: No jugular vein distension. [] HEENT: No cyanosis. No icterus. No pallor. [] HEART: Regular S1 and S2. No murmur, rub or gallop. [] LUNGS: Crackles bilaterally CENTRAL NERVOUS SYSTEM: Grossly nonfocal. [] EXTREMITIES: Lower extremities with 1+ edema bilaterally. Data 12/01/24 04:31 12/01/24 04:31 Micro: Microbiology 11/28/24 04:33 Gram Stain - Final Sputum - Expectorated Sputum 11/28/24 15:15 Blood Culture - Preliminary Blood SPECIMEN COLLECTED 11/28/24 15:13 Blood Culture - Preliminary Blood SPECIMEN COLLECTED A&P Assessment and plan (1) CAD (coronary artery disease): (2) CHF (congestive heart failure): (3) S/P AAA repair: (4) Cardiogenic shock: Plan Patient is volume overloaded. LV systolic function is severely reduced. We will proceed with dobutamine and aggressive diuresis. If needed Levophed can be started for elevating blood pressure. Patient will need coronary angiogram at some point. However currently will need more diuresis. Close I&O's. Monitor renal function. Thank you for involving us with care of this patient. Will continue to follow. Please call with questions PDMP PDMP Reviewed: Not Reviewed Attestations 2 Medical Necessity Statement*: Care expected to cross 2 midnights. Coding Level of Care Code Acute Code for [facility] Fwd Diagnoses CAD (coronary artery disease) I25.10 CHF (congestive heart failure) I50.9 S/P AAA repair Z98.890; Z86.79 Cardiogenic shock R57.0
--- NOTE | 2024-11-29 13:06 | PC.NURSE ---
Provider ordered a french catheter to be placed.
[2024-11-29 13:20] LABS: Lactate (Lactic Acid level) 2.1 mmol/L (0.5-2.2)
[2024-11-29] MEDS: cefTRIAXone 1,000 mg SDV 1000 MG IVP (15:02)
[2024-11-29] MEDS: water for injection-sterile 10 ML 1000 ML (15:03)
--- NOTE | 2024-11-29 15:17 | P.PN_ITS ---
Subjective 2 Subjective: Patient was examined this morning - Reports feeling short of breath - Currently nasal flaring, intercostal r etractions, suprasternal retractions, tachypnea, tachycardia, crackles in all lung orozco - Order placed for Lasix 40 mg IV with 1 dose of metolazone - Detailed discussion with patient's fam jeremiah - Patient's granddaughter, patient's wif e - Discussed plans on following cardiac e chocardiogram continuing heparin drip for NSTEMI, possible PE - Will hold off on repeating CT angiogra m of the chest, due to concerns for further contrast loads with his kidneys, risk of KASHIF especially if there is plans on coronary angiography - Creatinine 0.7, BNP 9200 - Blood pressures are soft, 80s over 60s , patient is feeling unwell, orders placed to moved to ICU, placed on Levophed - Spoke to cardiology, - Echocardiogram reviewed, EF 25 to 30%, left atrial dilatation, mild aortic stenosis, IVC is dilated -I had a detailed discussion with the regan skaggs family, patient's , about patient's echocardiogram findings, concerns for cardiogenic shock, systolic CHF, fluid overload, moved to ICU, continue IV diuresis, placed on Levophed possible dobutamine, - Discussed morbidity mortality of his c ondition,, they voiced understanding, all questions answered, agreed to proceed Vitals/I&O/Wt Last Vital Signs Temp 97.8 F 11/29/24 11:52 Pulse 85 11/29/24 14:57 Resp 18 11/29/24 14:30 BP 99/69 11/29/24 14:45 Pulse Ox 92 11/29/24 14:45 O2 Del Method Nasal Cannula, Oxymask 11/29/24 11:52 O2 Flow Rate 2 11/29/24 11:52 FiO2 21 11/28/24 00:37 11/29/24 11/29/24 11/29/24 06:59 14:59 22:59 Intake Total 228.75 / 814.833 624.017 / 624.017 Output Total 250 / 1150 950 / 950 Balance -21.25 / -335.167 -325.983 / -325.983 Weight last 48 hrs Weight 64.002 kg Weight 58.876 kg Weight 61.235 kg Weight 58.967 kg Physical Exam 2 Const: NUTRITIONAL APPEARANCE: thin Eye: COMMON NORMALS: Equal, round and reactive pupils present PUPIL: Yes Equal, round and reactive pupils present Resp: EFFORT & INSPECTION: Yes abnormal respiratory pattern, Yes tachypneic and Yes respiratory distress AUSCULTATION: crackles and wheezes OTHER: Nasal flaring, suprasternal intercostal retractions Cardio: COMMON NORMALS: regular rhythm RATE: tachycardic RHYTHM: regular rhythm GI: COMMON NORMALS: Normal to inspection, nondistended, normoactive bowel sounds present Extremity: NARRATIVE EXTREMITY EXAM: 1+ pitting edema Urinary Catheter Management: Cook: Cath Placed During This Visit: yes Urinary Catheter Date of Insertion: 11/29/24 Urinary Catheter Time of Insertion: 13:34 Data 11/29/24 07:51 11/29/24 09:33 Micro: Microbiology 11/28/24 04:33 Gram Stain - Final Sputum - Expectorated Sputum 11/28/24 15:15 Blood Culture - Preliminary Blood SPECIMEN COLLECTED 11/28/24 15:13 Blood Culture - Preliminary Blood SPECIMEN COLLECTED A&P Assessment and plan (1) Atrial fibrillation with RVR: (2) COPD (chronic obstructive pulmonary disease): (3) CAD (coronary artery disease): (4) Acute CHF (congestive heart failure): (5) S/P AAA repair: (6) Urinary retention: (7) Acute anemia: (8) NSTEMI (non-ST elevated myocardial infarction): (9) Pulmonary embolism: (10) Acute hypoxic respiratory failure: (11) CHF (congestive heart failure): (12) Systolic CHF: (13) Pneumonia: (14) Physical deconditioning: (15) Protein calorie malnutrition: (16) Current smoker: (17) Cardiogenic shock: Plan Possible pulmonary embolism? - [facility] bedbound - Has NSTEMI, D-dimer 2.26 - Venous ultrasound negative for DVT CT/CT angio chest PE protcl [id number] IMPRESSION: 1. Non opacification of multiple peripheral pulmonary arteries including the right middle lobe and bilateral lower lobes. While potentially representing extensive pulmonary emboli, non opacification due to incomplete filling with contrast is suspected particularly given mixed blood and contrast in multiple pulmonary arteries. Consider repeat CT pulmonary angiogram as indicated. Plan - Increased risk of contrast-induced nephropathy, will hold off on repeating CT angiogram of the chest for now - Will watch kidney function closely - But will consider repeat CT angiogram in the near future, based on clinical progress - For now start heparin drip - My monitor hemoglobin every 4 hours Acute hypoxic respiratory failure -With evidence of acute respiratory distress - Multifactorial - Concerns for systolic CHF, BNP over 16,000, with systolic CHF - Does have bilateral pleural effusions - Does not look clinically fluid overloaded, 1+ pitting edema - Does have imaging concerning for moderate to right large pleural effusion, moderate left pleural effusion - Concerns for possible pneumonia CT imaging 2. [id number]-ru-[id number] right and moderate left pleural effusions with adjacent atelectasis. 3. Nonspecific interlobular septal thickening, ground-glass opacification, and diffuse bronchial wall thickening likely related to pulmonary edema. Plan -Monitor respiratory status closely -Oxygen therapy -Lasix 40 IV twice daily, metolazone -fluid restriction 1000cc -Potassium, creatinine -Cardiac echo - Rocephin -Azithromycin -Sputum culture -Blood culture Systolic CHF exacerbation - EF 25 to 30% CONCLUSIONS LV systolic function is severely reduced with EF of 25-30% Left atrial dilation Mild aortic stenosis. Mild aortic regurgitation Mild tricuspid regurgitation Mild pulmonary hypertension Trace pulmonic regurgitation IVC is dilated Compared to prior echocardiogram from 2021, LV systolic function has decreased significantly. Plan - Lasix 40 IV twice daily Concerns for cardiogenic shock -EF 25 to 30% - Monitor blood pressure closely - Placed on Levophed - Moved to ICU NSTEMI - Serial EKGs, serial troponins, telemetry monitoring - No chest pain complaints - Continue Plavix - Statin - Continue heparin drip Acute anemia -Hemoccult positive stool -Denies any bloody or black stools, denies any history of blood transfusions -Will start on Protonix, Carafate -Monitor hemoglobin every 4 hours -Is on heparin drip as above -Discussed risk and benefits with patient, patient and family voiced understanding, all questions answered, shared decision making, agreed to proceed Recent history of AAA repair due to concerns for endoleak -At [facility], hospitalization complicated by postoperative pneumonia Ultrasound abdominal aorta CONCLUSIONS Endograft with iliac extension is patent Mid aneurysm sac measures 4.1 x 3.6cm Distal sac measures 3.3 x 3.7cm Proximal iliac arteries are patent COPD, current smoker - DuoNeb as needed Physical deconditioning, protein, malnutrition, BMI 19.7 - Encourage protein shakes - Dietary eval Full code Heparin drip for DVT prophylaxis PDMP PDMP Reviewed: Not Reviewed Attestations 2 Medical Necessity Statement*: Patient requires hospitalization for systolic CHF, acute hypoxic respiratory failure, cardiogenic shock, requiring ICU admission Diagnoses Atrial fibrillation with RVR I48.91 COPD (chronic obstructive pulmonary disease) J44.9 CAD (coronary artery disease) I25.10 Acute CHF (congestive heart failure) I50.9 S/P AAA repair Z98.890; Z86.79 Urinary retention R33.9 Acute anemia D64.9 NSTEMI (non-ST elevated myocardial infarction) I21.4 Pulmonary embolism I26.99 Acute hypoxic respiratory failure J96.01 CHF (congestive heart failure) I50.9 Systolic CHF I50.20 Pneumonia J18.9 Physical deconditioning R53.81 Protein calorie malnutrition E46 Current smoker F17.200 Cardiogenic shock R57.0
[2024-11-29] MEDS: DOBUTamine drip 500 MG/250 ML PREMIX 9.6 MG IV (15:35)
[2024-11-29 16:05] LABS: Hematocrit 28.7 % (37-53)
[2024-11-29] MEDS: heparin drip 25,000 UNIT/500 ML PREMIX 17 UNIT IV (16:19)
[2024-11-29 16:20] LABS: Anion Gap 14.2 (5-19); Blood Urea Nitrogen 16 mg/dL (8-23); Calcium 8.7 mg/dL (8.5-10.5); Carbon Dioxide 28 mmol/L (22-29); Chloride 84 mmol/L (98-107); Creatinine Clr Calc Pharmacy 68.2605; Glucose 136 mg/dL (65-115); Osmolality Calculated 257 mOsm/kg (285-295); Potassium 4.2 mmol/L (3.5-5.1); Sodium 122 mmol/L (136-145)
[2024-11-29 16:28] LABS: Partial Thromboplastin Time 51.4 SECONDS (23.9-36.7)
[2024-11-29] MEDS: norepinephrine 4 MG/250 ML BAG 7.5 MG IV (21:13)
[2024-11-29] MEDS: atorvastatin 40 mg Tablet 20 MG PO (22:25)
[2024-11-29 22:59] LABS: Hematocrit 26.8 % (37-53)
[2024-11-29 23:13] LABS: Partial Thromboplastin Time 45.5 SECONDS (23.9-36.7)
[2024-11-29 23:21] LABS: Sodium 128 mmol/L (136-145)
[2024-11-29] MEDS: heparin 5,000 unit/mL INJ 1 mL IVP (23:33)
[2024-11-29] MEDS: iron sucrose 200 MG in sodium chloride 0.9% (100 ml) 100 ML 220 MG IV (23:53)
[2024-11-30] VITALS (61 sets, daily range): BP systolic 94–151; BP diastolic 47–97; PULSE 77–112; RESP 16–41; TEMP 36.6–36.8; O2SAT 83–98
[2024-11-30] MEDS: acetaminophen 325 mg Tablet 650 MG PO (00:11)
[2024-11-30] MEDS: LORazepam 0.5 mg Tablet PO ×2 (02:03→23:51)
[2024-11-30] MEDS: FUROsemide 10 mg/mL SDV 4mL 40 MG IVP ×2 (03:55→16:30)
[2024-11-30 04:54] LABS: Basophils % 0.2 %; Eosinophils # 0.1 10^3/uL (0.0-0.8); Eosinophils % 1.3 %; Hematocrit 25.9 % (37-53); Lymphocytes # 2.2 10^3/uL (0.8-4.8); Lymphocytes % 22.2 %; Mean Corpuscular HGB Conc 32.8 g/dL (30-55); Mean Corpuscular Hemoglobin 30.1 pg (27-33); Mean Corpuscular Volume 91.8 fl (82-101); Mean Platelet Volume 9.4 fL (7.4-10.4); Monocytes # 1.4 10^3/uL (0.2-0.9); Monocytes % 14.1 %; Neutrophils # 6.11 10^3/uL (1.8-7.7); Neutrophils % 61.8 %; Nucleated Red Blood Cells % 0 %; Platelet Count 333 10^3/cmm (157-399); Red Blood Count 2.82 10^6/uL (3.85-5.65); Red Cell Distribution Width 13.3 % (12.1-15.1); White Blood Count 9.88 10^3/uL (3.29-11.43)
[2024-11-30 05:11] LABS: Alanine Aminotransferase 16 U/L (0-41); Albumin Level 3.1 g/dL (3.5-5.2); Alkaline Phosphatase 94 U/L (40-130); Aspartate Amino Transferase 19 U/L (0-40); Blood Urea Nitrogen 13 mg/dL (8-23); C Reactive Protein 5.5 mg/L (0.0-4.9); Calcium 8.3 mg/dL (8.5-10.5); Carbon Dioxide 27 mmol/L (22-29); Creatinine Clr Calc Pharmacy 68.2605; Globulin 2.9 g/dL (1.3-4.6); Glucose 103 mg/dL (65-115); Magnesium 1.7 mg/dL (1.7-2.3); Phosphorus 4.4 mg/dL (2.5-4.5); Total Bilirubin 0.2 mg/dL (0.15-1.2)
[2024-11-30 05:54] LABS: Chloride 85 mmol/L (98-107); Osmolality Calculated 262 mOsm/kg (285-295); Sodium 126 mmol/L (136-145)
[2024-11-30 05:58] LABS: Anion Gap 17.3 (5-19); Potassium 3.3 mmol/L (3.5-5.1)
[2024-11-30 06:07] LABS: Partial Thromboplastin Time 85.9 SECONDS (23.9-36.7)
[2024-11-30] MEDS: pantoprazole 40 mg SDV IVP ×2 (08:14→21:48)
[2024-11-30] MEDS: AZITHROMYCIN ADD-Vantage 500 MG in 0.9% NaCl ADD-Vantage 250 ML 250 MG IV (08:15)
[2024-11-30] MEDS: nicotine 21 mg Patch 1 PATCH TRANSDERMA (08:15)
[2024-11-30] MEDS: clopidogrel 75 mg Tablet PO (08:15)
[2024-11-30] MEDS: tamsulosin 0.4 mg Capsule PO (08:15)
[2024-11-30] MEDS: docusate sodium 100 mg Capsule PO ×2 (08:15→17:29)
[2024-11-30] MEDS: predniSONE 20 mg Tablet PO (08:15)
[2024-11-30] MEDS: sucralfate 1 gm Tablet PO ×2 (08:15→21:48)
[2024-11-30 08:54] LABS: NT Pro B Type Natriuretic Pept 7611 pg/mL (0-450); Procalcitonin 0.06 ng/mL (0-0.5)
[2024-11-30 10:31] LABS: Hematocrit 30.7 % (37-53)
[2024-11-30 10:54] LABS: Sodium 129 mmol/L (136-145)
[2024-11-30 12:38] LABS: Partial Thromboplastin Time 51.3 SECONDS (23.9-36.7)
--- NOTE | 2024-11-30 13:49 | P.PN_ITS ---
Subjective 2 Subjective: Patient was seen this morning, sitting up in a chair he feels significantly better, currently on dobutamine drip, currently on 2 L, urine output has been over 6 L overnight, he feels better, but does report feeling lightheadedness with minimal motion, shortness of breath with minimal movement, he tells me that he thinks he has had a coronary angiogram in [facility] before he had his abdominal aortic aneurysm endoleak repair at [facility], he thinks that the cholangiogram was done at [facility], we will request records Vitals/I&O/Wt Last Vital Signs Temp 98.0 F 11/30/24 04:00 Pulse 97 11/30/24 12:00 Resp 21 H 11/30/24 12:00 BP 123/61 11/30/24 12:00 Pulse Ox 85 L 11/30/24 12:00 O2 Del Method Nasal Cannula 11/30/24 09:00 O2 Flow Rate 2 11/30/24 09:00 FiO2 21 11/28/24 00:37 11/29/24 11/30/24 11/30/24 22:59 06:59 14:59 Intake Total 343.810 / 967.827 685.717 / 1653.544 455.683 / 455.683 Output Total 3800 / 4750 1650 / 6400 1999 / 1999 Balance -3456.190 / -3782.173 -964.283 / -4746.456 -1544.317 / -1544.317 Weight last 48 hrs Weight 59.058 kg Weight 64.002 kg Physical Exam 2 Const: COMMON NORMALS: no acute distress and patient oriented x3 Resp: AUSCULTATION: crackles OTHER: Tachypnea, intermittent tachycardia, mild nasal flaring, mild suprasternal retractions, wheezing and crackles in all lung orozco Cardio: COMMON NORMALS: regular rate, regular rhythm, S1 normal heart sound present and S2 normal heart sound present RATE: regular rate RHYTHM: r egular rhythm HEART SOUNDS: S1 normal heart sound present and S2 normal heart sound present GI: COMMON NORMALS: Normal to inspection, nondistended, normoactive bowel sounds present and non-tender Extremity: COMMON NORMALS: no clubbing, cyanosis or edema and no pedal edema Neuro: COMMON NORMALS: patient oriented x3 Psych: COMMON NORMALS: mental status grossly normal Urinary Catheter Management: Cook: Cath Placed During This Visit: yes Reason for Continuing Indwelling Catheter: Accurate Measurement of Urinary Output in Critically Ill Patients Urinary Catheter Date of Insertion: 11/29/24 Urinary Catheter Time of Insertion: 13:34 Data 11/30/24 10:07 11/30/24 10:07 Micro: Microbiology 11/28/24 04:33 Gram Stain - Final Sputum - Expectorated Sputum Sputum Culture - Preliminary 11/28/24 15:15 Blood Culture - Preliminary Blood NEGATIVE TO DATE 11/28/24 15:13 Blood Culture - Preliminary Blood NEGATIVE TO DATE A&P Assessment and plan (1) Atrial fibrillation with RVR: (2) COPD (chronic obstructive pulmonary disease): (3) CAD (coronary artery disease): (4) Acute CHF (congestive heart failure): (5) S/P AAA repair: (6) Urinary retention: (7) Acute anemia: (8) NSTEMI (non-ST elevated myocardial infarction): (9) Pulmonary embolism: (10) Acute hypoxic respiratory failure: (11) CHF (congestive heart failure): (12) Systolic CHF: (13) Pneumonia: (14) Physical deconditioning: (15) Protein calorie malnutrition: (16) Current smoker: (17) Cardiogenic shock: Plan Possible pulmonary embolism? - [facility] patient has been more bedbound - Has NSTEMI, D-dimer 2.26 - Venous ultrasound negative for DVT CT/CT angio chest PE protcl [id number] IMPRESSION: 1. Non opacification of multiple peripheral pulmonary arteries including the right middle lobe and bilateral lower lobes. While potentially representing extensive pulmonary emboli, non opacification due to incomplete filling with contrast is suspected particularly given mixed blood and contrast in multiple pulmonary arteries. Consider repeat CT pulmonary angiogram as indicated. Plan - Increased risk of contrast-induced nephropathy, will hold off on repeating CT angiogram of the chest for now - Will watch kidney function closely - But will consider repeat CT angiogram in the near future, based on clinical progress - For now start heparin drip - My monitor hemoglobin every 4 hours Acute hypoxic respiratory failure -With evidence of acute respiratory distress, resolving - Multifactorial - Concerns for systolic CHF, BNP over 16,000, with systolic CHF - Does have bilateral pleural effusions - Does not look clinically fluid overloaded, 1+ pitting edema - Does have imaging concerning for moderate to right large pleural effusion, moderate left pleural effusion - Concerns for possible pneumonia CT imaging 2. Wmeygiyd-ey-bhgez right and moderate left pleural effusions with adjacent atelectasis. 3. Nonspecific interlobular septal thickening, ground-glass opacification, and diffuse bronchial wall thickening likely related to pulmonary edema. Plan -Currently in ICU -Monitor respiratory status closely -Oxygen therapy -Lasix 40 IV twice daily, -Dobutamine drip -fluid restriction 1000cc -Potassium, creatinine -Cardiac echo as below - Rocephin -Azithromycin -Sputum culture -Blood culture Systolic CHF exacerbation - EF 25 to 30% CONCLUSIONS LV systolic function is severely reduced with EF of 25-30% Left atrial dilation Mild aortic stenosis. Mild aortic regurgitation Mild tricuspid regurgitation Mild pulmonary hypertension Trace pulmonic regurgitation IVC is dilated Compared to prior echocardiogram from 2021, LV systolic function has decreased significantly. Plan -On dobutamine drip - Lasix 40 IV twice daily Concerns for cardiogenic shock -EF 25 to 30% - Monitor blood pressure closely - Moved to ICU NSTEMI - Serial EKGs, serial troponins, telemetry monitoring - No chest pain complaints - Continue Plavix - Statin - Continue heparin drip Acute anemia -Hemoccult positive stool -Denies any bloody or black stools, denies any history of blood transfusions -Will start on Protonix, Carafate -Monitor hemoglobin every 4 hours -Is on heparin drip as above -Discussed risk and benefits with patient, patient and family voiced understanding, all questions answered, shared decision making, agreed to proceed Recent history of AAA repair due to concerns for endoleak -At [facility], hospitalization complicated by postoperative pneumonia Ultrasound abdominal aorta CONCLUSIONS Endograft with iliac extension is patent Mid aneurysm sac measures 4.1 x 3.6cm Distal sac measures 3.3 x 3.7cm Proximal iliac arteries are patent COPD, current smoker - DuoNeb as needed Physical deconditioning, protein, malnutrition, BMI 19.7 - Encourage protein shakes - Dietary eval Full code Heparin drip for DVT prophylaxis Plan for today IV diuresis, monitor clinical status closely continue dobutamine drip, await records from [facility] PDMP PDMP Reviewed: Not Reviewed Attestations 2 Medical Necessity Statement*: Patient requires hospitalization for acute hypoxic respiratory failure secondary to systolic CHF exacerbation requiring IV Lasix, ICU admission, dobutamine drip Diagnoses Atrial fibrillation with RVR I48.91 COPD (chronic obstructive pulmonary disease) J44.9 CAD (coronary artery disease) I25.10 Acute CHF (congestive heart failure) I50.9 S/P AAA repair Z98.890; Z86.79 Urinary retention R33.9 Acute anemia D64.9 NSTEMI (non-ST elevated myocardial infarction) I21.4 Pulmonary embolism I26.99 Acute hypoxic respiratory failure J96.01 CHF (congestive heart failure) I50.9 Systolic CHF I50.20 Pneumonia J18.9 Physical deconditioning R53.81 Protein calorie malnutrition E46 Current smoker F17.200 Cardiogenic shock R57.0
--- NOTE | 2024-11-30 14:27 | P.PN_ITS ---
Subjective 2 Subjective: Patient is diuresing well. Breathing is improving Vitals/I&O/Wt Last Vital Signs Temp 98.0 F 11/30/24 04:00 Pulse 99 11/30/24 14:00 Resp 22 H 11/30/24 13:30 BP 100/50 11/30/24 14:00 Pulse Ox 94 11/30/24 14:00 O2 Del Method Nasal Cannula 11/30/24 09:00 O2 Flow Rate 2 11/30/24 09:00 FiO2 21 11/28/24 00:37 11/29/24 11/30/24 11/30/24 22:59 06:59 14:59 Intake Total 343.810 / 967.827 685.717 / 1653.544 555.683 / 555.683 Output Total 3800 / 4750 1650 / 6400 1999 / 1999 Balance -3456.190 / -3782.173 -964.283 / -4746.456 -1444.317 / -1444.317 Weight last 48 hrs Weight 130 lb 3.2 oz Weight 141 lb 1.6 oz Physical Exam 2 Narrative: GENERAL: Patient is alert, awake and oriented x3. [] NECK: No jugular vein distension. [] HEENT: No cyanosis. No icterus. No pallor. [] HEART: Regular S1 and S2. No murmur, rub or gallop. [] LUNGS: Crackles bilaterally CENTRAL NERVOUS SYSTEM: Grossly nonfocal. [] EXTREMITIES: Lower extremities with 1+ edema bilaterally. Urinary Catheter Management: Cook: Cath Placed During This Visit: yes Reason for Continuing Indwelling Catheter: Accurate Measurement of Urinary Output in Critically Ill Patients Urinary Catheter Date of Insertion: 11/29/24 Urinary Catheter Time of Insertion: 13:34 Data 12/01/24 04:31 12/01/24 04:31 Micro: Microbiology 11/28/24 04:33 Gram Stain - Final Sputum - Expectorated Sputum Sputum Culture - Preliminary 11/28/24 15:15 Blood Culture - Preliminary Blood NEGATIVE TO DATE 11/28/24 15:13 Blood Culture - Preliminary Blood NEGATIVE TO DATE A&P Assessment and plan (1) CAD (coronary artery disease): (2) CHF (congestive heart failure): (3) S/P AAA repair: (4) Cardiogenic shock: Plan Patient is diuresing well. Will continue with dobutamine and diuresis. Awaiting records from [place]. Thank you for involving us with care of this patient. Please call with questions PDMP PDMP Reviewed: Not Reviewed Attestations 2 Medical Necessity Statement*: Care expected to cross 2 midnights. Coding Level of Care Code Acute Code for [facility] Fwd Diagnoses CAD (coronary artery disease) I25.10 CHF (congestive heart failure) I50.9 S/P AAA repair Z98.890; Z86.79 Cardiogenic shock R57.0
[2024-11-30 16:08] LABS: Hematocrit 29.4 % (37-53)
[2024-11-30 16:27] LABS: Sodium 129 mmol/L (136-145)
[2024-11-30] MEDS: cefTRIAXone 1,000 mg SDV 1000 MG IVP (16:29)
--- NOTE | 2024-11-30 18:16 | PC.NURSE ---
had good day up in chair for period of time did have some othostatic hypotension when standing and noted dizziness less short of breath today o2 2lnc did contact [facility] for medical records angiogram done in september
[2024-11-30] MEDS: DOBUTamine drip 500 MG/250 ML PREMIX 9.6 MG IV (19:03)
[2024-11-30 20:33] LABS: Partial Thromboplastin Time 48.7 SECONDS (23.9-36.7)
[2024-11-30] MEDS: heparin drip 25,000 UNIT/500 ML PREMIX 18 UNIT IV (21:30)
[2024-11-30] MEDS: atorvastatin 40 mg Tablet 20 MG PO (21:48)
[2024-11-30] MEDS: heparin 5,000 unit/mL INJ 1 mL IVP (21:52)
[2024-11-30] MEDS: iron sucrose 200 MG in sodium chloride 0.9% (100 ml) 100 ML 220 MG IV (21:59)
[2024-11-30 22:15] LABS: Hematocrit 30.3 % (37-53)
[2024-11-30 22:52] LABS: Sodium 131 mmol/L (136-145)
[2024-12-01] VITALS (36 sets, daily range): BP systolic 91–154; BP diastolic 53–99; PULSE 81–124; RESP 14–36; TEMP 36.4–37.3; O2SAT 90–97
[2024-12-01] MEDS: norepinephrine 4 MG/250 ML BAG 11.25 MG IV ×2 (01:51→22:55)
[2024-12-01] MEDS: FUROsemide 10 mg/mL SDV 4mL 40 MG IVP ×2 (03:31→16:50)
[2024-12-01 05:33] LABS: Basophils % 0.2 %; Nucleated Red Blood Cells % 0 %; Red Blood Count 3.56 10^6/uL (3.85-5.65)
[2024-12-01 05:47] LABS: Eosinophils # 0.2 10^3/uL (0.0-0.8); Eosinophils % 2.1 %; Hematocrit 32.1 % (37-53); Lymphocytes # 2.2 10^3/uL (0.8-4.8); Lymphocytes % 23.7 %; Mean Corpuscular Hemoglobin 30.6 pg (27-33); Mean Corpuscular Volume 90.2 fl (82-101); Mean Platelet Volume 9.1 fL (7.4-10.4); Monocytes # 1.3 10^3/uL (0.2-0.9); Monocytes % 13.3 %; Neutrophils % 60.3 %; Platelet Count 419 10^3/cmm (157-399); Red Cell Distribution Width 13.3 % (12.1-15.1); White Blood Count 9.46 10^3/uL (3.29-11.43)
[2024-12-01 06:20] LABS: Partial Thromboplastin Time 82.7 SECONDS (23.9-36.7)
[2024-12-01 06:22] LABS: Alanine Aminotransferase 19 U/L (0-41); Alkaline Phosphatase 115 U/L (40-130); Anion Gap 18.1 (5-19); Aspartate Amino Transferase 19 U/L (0-40); Blood Urea Nitrogen 9 mg/dL (8-23); C Reactive Protein 5.3 mg/L (0.0-4.9); Calcium 9.5 mg/dL (8.5-10.5); Carbon Dioxide 33 mmol/L (22-29); Chloride 83 mmol/L (98-107); Globulin 3.1 g/dL (1.3-4.6); Glucose 102 mg/dL (65-115); Magnesium 1.8 mg/dL (1.7-2.3); Osmolality Calculated 271 mOsm/kg (285-295); Phosphorus 3.9 mg/dL (2.5-4.5); Potassium 3.1 mmol/L (3.5-5.1); Sodium 131 mmol/L (136-145); Total Bilirubin 0.4 mg/dL (0.15-1.2); Total Protein 7.1 g/dL (6.6-8.7)
[2024-12-01 06:28] LABS: NT Pro B Type Natriuretic Pept 6582 pg/mL (0-450); Procalcitonin 0.06 ng/mL (0-0.5)
--- NOTE | 2024-12-01 07:15 | XRR_ITS ---
PROCEDURE INFORMATION: Exam: XR Chest Exam date and time: 12/01/2024 7:44 AM Age: 79 years old Clinical indication: Device placement; Picc; Additional info: Post picc insertion, norman placing picc in icu 4. Should be ready at 0750 TECHNIQUE: Imaging protocol: Radiologic exam of the chest. Views: 1 view. COMPARISON: CR (CHEST, ) 11/29/2024 8:43 AM FINDINGS: Tubes, catheters and devices: Right PICC line terminates near the atrial caval junction. Lungs: Mild bibasilar atelectasis or infiltrates, slightly increasing since 11/29. Pleural spaces: Unremarkable. No pleural effusion. No pneumothorax. Heart/Mediastinum: See Vasculature finding. Vasculature: Mild cardiomegaly and uncoiling of the thoracic aorta. Bones/joints: Unremarkable. XR/XR chest 1V portable [id number] IMPRESSION: PICC line terminates near the atriocaval junction.
--- NOTE | 2024-12-01 08:09 | PICC.NOTE ---
Triple lumen PICC placed to right basilic vein. Referred to vascular access nurse for PICC placement due to use of vasopressors. Risks and benefits discussed and informed consent obtained from pt. Right arm assessed with right basilic vein measuring 4.1 mm, straight, and apparent best choice for placement. Using sterile technique and MST, right basilic vein accessed x 1 stick. Mid-arm circumference measured 10 cm from right AC 23 cm. Trimmed cath 39 cm with 0 cm external length noted. CXR shows tip to appear to be distal SVC, awaiting radiologist to read. Line secured with stat-lock. Insertion site covered with Biopatch and TSM. Report given to bedside nurse, RAMAKRISHNA Fuller.
[2024-12-01] MEDS: predniSONE 20 mg Tablet PO (08:23)
[2024-12-01] MEDS: sucralfate 1 gm Tablet PO ×2 (08:23→19:14)
[2024-12-01] MEDS: clopidogrel 75 mg Tablet PO (08:23)
[2024-12-01] MEDS: nicotine 21 mg Patch 1 PATCH TRANSDERMA (08:24)
[2024-12-01] MEDS: tamsulosin 0.4 mg Capsule PO (08:24)
[2024-12-01] MEDS: docusate sodium 100 mg Capsule PO ×2 (08:24→16:50)
[2024-12-01] MEDS: potassium chloride ER 20 mEq Tablet 40 MEQ PO (08:24)
[2024-12-01] MEDS: pantoprazole 40 mg SDV IVP ×2 (08:31→19:14)
[2024-12-01] MEDS: AZITHROMYCIN ADD-Vantage 500 MG in 0.9% NaCl ADD-Vantage 250 ML 250 MG IV (08:35)
[2024-12-01 10:29] LABS: Hematocrit 30.4 % (37-53)
[2024-12-01 10:48] LABS: Sodium 127 mmol/L (136-145)
--- NOTE | 2024-12-01 11:44 | PC.SOCIAL ---
IMM Updated Updated pt on IMM. No questions voiced. Provided pt a copy. Initialed, dated, & timed a copy & placed in chart.
--- NOTE | 2024-12-01 12:49 | P.PN_ITS ---
<Statement entered by Reed Roca M.D - 12/03/24 09:38> Patient was cared for in conjunction with an advanced practice practitioner.? I reviewed the chart and all pertinent data including imaging, telemetry, and laboratory results.? I discussed the patient in detail with the advanced practice practitioner.? Please see? their note for progress note, testing results and agreed upon plan of care for the patient. Subjective 2 Subjective: Patient is doing okay today. Denies any chest discomfort. States shortness of breath is improved. He is negative 3488 L over 24 hours. Dobutamine is going at 5. He is currently on Levophed at 3. Creatinine stable at 0.7. EF was seen at 25 to 30%. LifeVest was discussed and patient agrees. Patient is currently getting Lasix 40 every 12. Potassium was slightly low at 3.1. This has been replaced. We are still awaiting records from [place]. Vitals/I&O/Wt Last Vital Signs Temp 99.1 F 12/01/24 07:30 Pulse 100 12/01/24 10:30 Resp 28 H 12/01/24 10:30 BP 108/72 12/01/24 10:30 Pulse Ox 94 12/01/24 10:30 O2 Del Method Nasal Cannula 12/01/24 10:30 O2 Flow Rate 2 12/01/24 10:30 FiO2 21 11/30/24 23:15 11/30/24 12/01/24 12/01/24 22:59 06:59 14:59 Intake Total 967.557 / 1523.240 214 / 1737.240 679.867 / 679.867 Output Total 3750 / 5750 1600 / 7350 Balance -2782.443 / -4226.760 -1386 / -5612.760 679.867 / 679.867 Weight last 48 hrs Weight 122 lb Weight 130 lb 3.2 oz Physical Exam 2 Narrative: General: No apparent distress, healthy appearing, well nourished HENMT: normoceophalic Muskuloskeletal: Full ROM Respiratory: Normal respiratory effort, clear to auscultation bilaterally throughout all lung orozco, no use of accessory muscles Cardio: No JVD, regular rate, regular rhythm, S1 S2 normal, no murmurs, peripheral pulses 2+ radial palpated bilaterally GI: Normal to inspection, nondistended Extremities: Full ROM, normal, normal capillary refill, no cyanosis or edema Neuro: Alert and oriented x4, no focal motor deficits Psych: Affect normal, denies suicidal ideation, mental status grossly normal Skin: No rashes or lesions noted, no wounds Urinary Catheter Management: Cook: Cath Placed During This Visit: yes Reason for Continuing Indwelling Catheter: Accurate Measurement of Urinary Output in Critically Ill Patients Urinary Catheter Date of Insertion: 11/29/24 Urinary Catheter Time of Insertion: 13:34 Data 12/01/24 10:15 12/01/24 10:15 Micro: Microbiology 11/28/24 04:33 Gram Stain - Final Sputum - Expectorated Sputum Sputum Culture - Final A&P Assessment and plan (1) CAD (coronary artery disease): (2) CHF (congestive heart failure): (3) S/P AAA repair: (4) Cardiogenic shock: Plan Patient is diuresing well. Will continue Lasix 40 every 12. Will continue dobutamine at 5. Continue to wean Levophed as we are able to. We are still awaiting records from [place]. Will need to look at his angiogram. Patient has systolic ejection fraction of 25 to 30%. Due to this LifeVest was recommended. Patient agreed. This order has been placed. PDMP PDMP Reviewed: Not Reviewed Attestations 2 Medical Necessity Statement*: Referred to primary Coding Level of Care Code Acute Code for [facility] Fwd Diagnoses Coronary artery disease involving three affiliated coronary artery of three affiliated heart without angina pectoris I25.10 Coronary Disease-Associated Artery/Lesion type: three affiliated artery [place] vs. transplanted heart: three affiliated heart Associated angina: without angina Acute systolic congestive heart failure I50.21 Heart failure type: systolic Heart failure chronicity: acute S/P AAA repair Z98.890; Z86.79 Cardiogenic shock R57.0
[2024-12-01 14:31] LABS: Partial Thromboplastin Time 49.9 SECONDS (23.9-36.7)
--- NOTE | 2024-12-01 14:43 | PC.NURSE ---
Faxed [employer] order to company. Contacted and left voicemail with [employer] rep [place].
[2024-12-01] MEDS: cefTRIAXone 1,000 mg SDV 1000 MG IVP (14:46)
[2024-12-01] MEDS: heparin 5,000 unit/mL INJ 1 mL IVP (14:46)
--- NOTE | 2024-12-01 15:27 | P.PN_ITS ---
Subjective 2 Subjective: Patient was seen this morning, currently on dobutamine drip, currently on Levophed, he is alert oriented x 3, following all commands, denies any fever, no chills, no cough he tells me that his shortness of breath is improving, Vitals/I&O/Wt Last Vital Signs Temp 99.1 F 12/01/24 07:30 Pulse 100 12/01/24 10:30 Resp 28 H 12/01/24 10:30 BP 108/72 12/01/24 10:30 Pulse Ox 94 12/01/24 10:30 O2 Del Method Nasal Cannula 12/01/24 10:30 O2 Flow Rate 2 12/01/24 10:30 FiO2 21 11/30/24 23:15 12/01/24 12/01/24 12/01/24 06:59 14:59 22:59 Intake Total 214 / 1737.240 813.367 / 813.367 Output Total 1600 / 7350 Balance -1386 / -5612.760 813.367 / 813.367 Weight last 48 hrs Weight 55.338 kg Weight 59.058 kg Physical Exam 2 Const: COMMON NORMALS: no acute distress and patient oriented x3 Resp: COMMON NORMALS: normal respiratory effort, No retractions and No use of accessory muscles AUSCULTATION: crackles and wheezes Cardio: COMMON NORMALS: regular rate, regular rhythm, S1 normal heart sound present and S2 normal heart sound present RATE: regular rate RHYTHM: r egular rhythm HEART SOUNDS: S1 normal heart sound present and S2 normal heart sound present GI: COMMON NORMALS: Normal to inspection, nondistended, normoactive bowel sounds present and non-tender Extremity: COMMON NORMALS: no pedal edema Neuro: COMMON NORMALS: patient oriented x3 Psych: COMMON NORMALS: mental status grossly normal Urinary Catheter Management: Cook: Cath Placed During This Visit: yes Reason for Continuing Indwelling Catheter: Accurate Measurement of Urinary Output in Critically Ill Patients Urinary Catheter Date of Insertion: 11/29/24 Urinary Catheter Time of Insertion: 13:34 Data 12/01/24 10:15 12/01/24 10:15 Micro: Microbiology 11/28/24 04:33 Gram Stain - Final Sputum - Expectorated Sputum Sputum Culture - Final A&P Assessment and plan (1) Atrial fibrillation with RVR: (2) COPD (chronic obstructive pulmonary disease): (3) CAD (coronary artery disease): (4) Acute CHF (congestive heart failure): (5) S/P AAA repair: (6) Urinary retention: (7) Acute anemia: (8) NSTEMI (non-ST elevated myocardial infarction): (9) Pulmonary embolism: (10) Acute hypoxic respiratory failure: (11) CHF (congestive heart failure): (12) Systolic CHF: (13) Pneumonia: (14) Physical deconditioning: (15) Protein calorie malnutrition: (16) Current smoker: (17) Cardiogenic shock: Plan Possible pulmonary embolism? - [facility] patient has been more bedbound - Has NSTEMI, D-dimer 2.26 - Venous ultrasound negative for DVT CT/CT angio chest PE protcl [id number] IMPRESSION: 1. Non opacification of multiple peripheral pulmonary arteries including the right middle lobe and bilateral lower lobes. While potentially representing extensive pulmonary emboli, non opacification due to incomplete filling with contrast is suspected particularly given mixed blood and contrast in multiple pulmonary arteries. Consider repeat CT pulmonary angiogram as indicated. Plan - Increased risk of contrast-induced nephropathy, will hold off on repeating CT angiogram of the chest for now - Will watch kidney function closely - But will consider repeat CT angiogram in the near future, based on clinical progress - For now continue heparin drip - Monitor hemoglobin Acute hypoxic respiratory failure -With evidence of acute respiratory distress, resolving - Multifactorial - Concerns for systolic CHF, BNP over 16,000, with systolic CHF - Does have bilateral pleural effusions - Does not look clinically fluid overloaded, 1+ pitting edema - Does have imaging concerning for moderate to right large pleural effusion, moderate left pleural effusion - Concerns for possible pneumonia CT imaging 2. Ylzxedrq-to-wzffi right and moderate left pleural effusions with adjacent atelectasis. 3. Nonspecific interlobular septal thickening, ground-glass opacification, and diffuse bronchial wall thickening likely related to pulmonary edema. Plan -Currently in ICU. --10 L so far -Monitor respiratory status closely -Oxygen therapy -Lasix 40 IV twice daily, -Dobutamine drip -Currently on Levophed -fluid restriction 1000cc -Potassium, creatinine -Cardiac echo as below - Rocephin -Azithromycin -Sputum culture -Blood culture Systolic CHF exacerbation - EF 25 to 30% CONCLUSIONS LV systolic function is severely reduced with EF of 25-30% Left atrial dilation Mild aortic stenosis. Mild aortic regurgitation Mild tricuspid regurgitation Mild pulmonary hypertension Trace pulmonic regurgitation IVC is dilated Compared to prior echocardiogram from 2021, LV systolic function has decreased significantly. Plan -On dobutamine drip - Lasix 40 IV twice daily Concerns for cardiogenic shock -EF 25 to 30% - Monitor blood pressure closely - Moved to ICU - On Levophed drip - On amiodarone drip NSTEMI - Serial EKGs, serial troponins, telemetry monitoring - No chest pain complaints - Continue Plavix - Statin - Continue heparin drip Acute anemia -Hemoccult positive stool -Denies any bloody or black stools, denies any history of blood transfusions -Will start on Protonix, Carafate -Monitor hemoglobin every 4 hours -Is on heparin drip as above -Discussed risk and benefits with patient, patient and family voiced understanding, all questions answered, shared decision making, agreed to proceed Recent history of AAA repair due to concerns for endoleak -At [facility], hospitalization complicated by postoperative pneumonia Ultrasound abdominal aorta CONCLUSIONS Endograft with iliac extension is patent Mid aneurysm sac measures 4.1 x 3.6cm Distal sac measures 3.3 x 3.7cm Proximal iliac arteries are patent COPD, current smoker - DuoNeb as needed Physical deconditioning, protein, malnutrition, BMI 19.7 - Encourage protein shakes - Dietary eval Full code Heparin drip for DVT prophylaxis Plan for today IV diuresis, monitor clinical status closely continue dobutamine drip, currently on Levophed drip, called [facility] they do not have any record of him having an angiogram there, potentially patient and family could be confused, will request records from [facility] is pending, I did call the facility but my calls went to voicemail for the medical records department PDMP PDMP Reviewed: Not Reviewed Attestations 2 Medical Necessity Statement*: Patient requires hospitalization for systolic CHF exacerbation, requiring IV diuresis, cardiogenic shock Diagnoses Atrial fibrillation with RVR I48.91 COPD (chronic obstructive pulmonary disease) J44.9 Coronary artery disease involving [place] coronary artery of [place] heart without angina pectoris I25.10 Coronary Disease-Associated Artery/Lesion type: [place] artery [place] vs. transplanted heart: [place] heart Associated angina: without angina Acute CHF (congestive heart failure) I50.9 S/P AAA repair Z98.890; Z86.79 Urinary retention R33.9 Acute anemia D64.9 NSTEMI (non-ST elevated myocardial infarction) I21.4 Pulmonary embolism I26.99 Acute hypoxic respiratory failure J96.01 Acute systolic congestive heart failure I50.21 Heart failure chronicity: acute Heart failure type: systolic Systolic CHF I50.20 Pneumonia J18.9 Physical deconditioning R53.81 Protein calorie malnutrition E46 Current smoker F17.200 Cardiogenic shock R57.0
[2024-12-01 19:36] LABS: Partial Thromboplastin Time 54.6 SECONDS (23.9-36.7)
[2024-12-01] MEDS: DOBUTamine drip 500 MG/250 ML PREMIX 9.6 MG IV (19:57)
[2024-12-01] MEDS: iron sucrose 200 MG in sodium chloride 0.9% (100 ml) 100 ML 220 MG IV (22:18)
[2024-12-01] MEDS: atorvastatin 40 mg Tablet 20 MG PO (22:19)
[2024-12-02] VITALS (51 sets, daily range): BP systolic 100–153; BP diastolic 47–90; PULSE 82–116; RESP 9–41; TEMP 36.4–36.6; O2SAT 89–97
[2024-12-02] MEDS: heparin drip 25,000 UNIT/500 ML PREMIX 20 UNIT IV (00:18)
[2024-12-02 03:00] LABS: Basophils % 0.1 %; Eosinophils # 0.2 10^3/uL (0.0-0.8); Eosinophils % 1.9 %; Hematocrit 29.8 % (37-53); Lymphocytes # 2.3 10^3/uL (0.8-4.8); Lymphocytes % 20.8 %; Mean Corpuscular HGB Conc 33.6 g/dL (30-55); Mean Corpuscular Hemoglobin 30.8 pg (27-33); Mean Corpuscular Volume 91.7 fl (82-101); Monocytes # 1.6 10^3/uL (0.2-0.9); Monocytes % 14.7 %; Neutrophils # 6.88 10^3/uL (1.8-7.7); Nucleated Red Blood Cells % 0 %; Platelet Count 506 10^3/cmm (157-399); Red Blood Count 3.25 10^6/uL (3.85-5.65); Red Cell Distribution Width 13.5 % (12.1-15.1); White Blood Count 11.08 10^3/uL (3.29-11.43)
[2024-12-02 03:25] LABS: Partial Thromboplastin Time 82.5 SECONDS (23.9-36.7)
[2024-12-02 03:30] LABS: Alanine Aminotransferase 21 U/L (0-41); Albumin Level 3.7 g/dL (3.5-5.2); Alkaline Phosphatase 109 U/L (40-130); Blood Urea Nitrogen 12 mg/dL (8-23); Calcium 9.4 mg/dL (8.5-10.5); Carbon Dioxide 37 mmol/L (22-29); Chloride 84 mmol/L (98-107); Globulin 3.4 g/dL (1.3-4.6); Glucose 91 mg/dL (65-115); Magnesium 1.8 mg/dL (1.7-2.3); Osmolality Calculated 271 mOsm/kg (285-295); Phosphorus 3.7 mg/dL (2.5-4.5); Sodium 131 mmol/L (136-145); Total Bilirubin 0.3 mg/dL (0.15-1.2); Total Protein 7.1 g/dL (6.6-8.7)
[2024-12-02 03:33] LABS: Anion Gap 13.5 (5-19); Aspartate Amino Transferase 23 U/L (0-40); Potassium 3.5 mmol/L (3.5-5.1)
[2024-12-02 03:44] LABS: NT Pro B Type Natriuretic Pept 4346 pg/mL (0-450)
[2024-12-02] MEDS: FUROsemide 10 mg/mL SDV 4mL 40 MG IVP (04:07)
[2024-12-02] MEDS: nicotine 21 mg Patch 1 PATCH TRANSDERMA (08:42)
[2024-12-02] MEDS: sucralfate 1 gm Tablet PO ×2 (08:43→20:41)
[2024-12-02] MEDS: predniSONE 20 mg Tablet PO (08:44)
[2024-12-02] MEDS: pantoprazole 40 mg SDV IVP ×2 (08:44→20:41)
[2024-12-02] MEDS: tamsulosin 0.4 mg Capsule PO (08:44)
[2024-12-02] MEDS: docusate sodium 100 mg Capsule PO ×2 (08:44→17:53)
[2024-12-02] MEDS: azithromycin 250 mg Tablet PO (08:44)
[2024-12-02] MEDS: clopidogrel 75 mg Tablet PO (08:44)
[2024-12-02 11:01] LABS: Partial Thromboplastin Time 59.5 SECONDS (23.9-36.7)
--- NOTE | 2024-12-02 12:56 | P.PN_ITS ---
<Statement entered by Reed Roca M.D - 12/03/24 09:52> Patient was cared for in conjunction with an advanced practice practitioner.? I reviewed the chart and all pertinent data including imaging, telemetry, and laboratory results.? I discussed the patient in detail with the advanced practice practitioner.? Please see?their note for progress note, testing results and agreed upon plan of care for the patient. Subjective 2 Subjective: Patient looks good from a heart failure standpoint. He is -1345 milliliters over 24 hours. Creatinine is stable at 0.8. He is slightly alkalotic. He is on dobutamine at 5, heparin drip, Plavix, metoprolol is on hold due to hypotension requiring levophed. BP is stable at 136/90. Vitals/I&O/Wt Last Vital Signs Temp 97.5 F L 12/02/24 08:00 Pulse 102 H 12/02/24 08:00 Resp 33 H 12/02/24 08:00 BP 136/90 12/02/24 08:00 Pulse Ox 90 12/02/24 08:00 O2 Del Method Nasal Cannula 12/02/24 08:00 O2 Flow Rate 2 12/02/24 08:00 FiO2 21 11/30/24 23:15 12/01/24 12/02/24 12/02/24 22:59 06:59 14:59 Intake Total 845.933 / 1959.300 375.333 / 2334.633 717.321 / 717.321 Output Total 1900 / 1900 1350 / 3250 400 / 400 Balance -1054.067 / 59.300 -974.667 / -915.367 317.321 / 317.321 Weight last 48 hrs Weight 121 lb 8.653 oz Weight 122 lb Physical Exam 2 Narrative: General: No apparent distress, healthy appearing, well nourished HENMT: normoceophalic Muskuloskeletal: Full ROM Respiratory: Normal respiratory effort, clear to auscultation bilaterally throughout all lung orozco, no use of accessory muscles Cardio: No JVD, regular rate, regular rhythm, S1 S2 normal, no murmurs, peripheral pulses 2+ radial palpated bilaterally GI: Normal to inspection, nondistended Extremities: Full ROM, normal, normal capillary refill, no cyanosis or edema Neuro: Alert and oriented x4, no focal motor deficits Psych: Affect normal, denies suicidal ideation, mental status grossly normal Skin: No rashes or lesions noted, no wounds Urinary Catheter Management: Cook: Cath Placed During This Visit: yes Reason for Continuing Indwelling Catheter: Accurate Measurement of Urinary Output in Critically Ill Patients Urinary Catheter Date of Insertion: 11/29/24 Urinary Catheter Time of Insertion: 13:34 Data 12/02/24 02:45 12/02/24 02:45 Micro: Microbiology 11/28/24 04:33 Gram Stain - Final Sputum - Expectorated Sputum Sputum Culture - Final A&P Assessment and plan (1) CAD (coronary artery disease): (2) CHF (congestive heart failure): (3) S/P AAA repair: (4) Cardiogenic shock: Plan Patient is diuresing well. He is getting a little alkolotic. He has been negative 11 L the whole stay. Will decrease lasix to 40 q24 hours. Will continue dobutamine at 5. Continue to wean Levophed as we are able to. We are still awaiting records from [place]. Will need to look at his angiogram. Patient has systolic ejection fraction of 25 to 30%. Due to this LifeVest was recommended. Patient agreed. This order has been placed. PDMP PDMP Reviewed: Not Reviewed Attestations 2 Medical Necessity Statement*: Deferred to primary Coding Level of Care Code Acute Code for [facility] Diagnoses Coronary artery disease involving [place] coronary artery of [place] heart without angina pectoris I25.10 Coronary Disease-Associated Artery/Lesion type: [place] artery [place] vs. transplanted heart: [place] heart Associated angina: without angina Acute systolic congestive heart failure I50.21 Heart failure chronicity: acute Heart failure type: systolic S/P AAA repair Z98.890; Z86.79 Cardiogenic shock R57.0
--- NOTE | 2024-12-02 15:02 | CTR_ITS ---
PROCEDURE INFORMATION: Exam: CTA Chest With Contrast Exam date and time: 12/02/2024 5:06 PM Age: 79 years old Clinical indication: Shortness of breath; Prior surgery; Surgery date: 6+ months; Surgery type: Aaa; Additional info: Pulmonary embolism? , please make sure this is done right, last CT angio, TECHNIQUE: Imaging protocol: Computed tomographic angiography of the chest with contrast. Exam focused on the arteries. 3D rendering (Not supervised by radiologist): MIP and/or 3D reconstructed images were created by the technologist. Radiation optimization: All CT scans at this facility use at least one of these dose optimization techniques: automated exposure control; mA and/or kV adjustment per patient size (includes targeted exams where dose is matched to clinical indication); or iterative reconstruction. Contrast material: OMNI 350; Contrast volume: 58 ml; Contrast route: INTRAVENOUS (IV); COMPARISON: CT angio chest PE protcl [id number] 11/27/2024 8:27 PM RADIATION DOSE METRICS: Total DLP (mGy-cm): 249.25 FINDINGS: Pulmonary arteries: No pulmonary embolism is identified. Hyperdense contrast is layering at dependently within the left lower lobe pulmonary artery branches creating a fluid/fluid level similar to the prior exam. The right main pulmonary artery is larger than the left measuring 3.6 cm compared to 3.0 cm in all of the right-sided pulmonary artery branches are larger in diameter and more densely opacified than the left. The fluid/fluid levels in the lower lobe pulmonary artery branches are attributed to sluggish slow/delayed opacification. Aorta: There is unchanged appearance of the aortic stent graft and multiple stents in the visualize thoraco abdominal aorta. No leaking abdominal aortic aneurysm. There is unchanged 4.7 cm aneurysmal dilatation of the ascending thoracic aorta without dissection. 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 Lungs: There are severe emphysematous changes. There is dense right middle lobe atelectasis and/or consolidation which has progressed compared to the prior exam. There is narrowing of the bronchus intermedius/occlusion with multiple adjacent small calcified granulomas in this may reflect scarring which has progressed compared to the prior exam. No airspace consolidation in the remaining lung parenchyma. There is subpleural atelectasis of the dependent portions of the lungs. Pleural spaces: There are small bilateral pleural effusions right greater than left. Heart: The heart is enlarged. There is a small pericardial fluid collection present. Mediastinal space: No discrete hilar mass. Lymph nodes: Unremarkable. No enlarged lymph nodes. Gallbladder and biliary ducts: There is pneumobilia. There has been a cholecystectomy. Spleen: The spleen is normal. Adrenal glands: The adrenal glands are normal. Bones/joints: Unremarkable. No acute fracture. Soft tissues: Unremarkable. CT/CT angio chest PE protcl [id number] IMPRESSION: 1. No pulmonary embolism is identified. 2. There are fluid/fluid levels (hyperdense contrast layering dependently beneath unopacified blood) in the left lower lobe pulmonary artery branches compared to the remainder of the lung parenchyma compatible with sluggish flow attributed to the much larger right main pulmonary artery compared to the left. 3. There are severe emphysematous changes. There is dense right middle lobe atelectasis and/or consolidation which has progressed compared to the prior exam. There is narrowing of the bronchus intermedius/occlusion with multiple adjacent small calcified granulomas in this may reflect scarring which has progressed compared to the prior exam. No discrete hilar mass. 4. There is unchanged 4.7 cm aneurysmal dilatation of the ascending thoracic aorta without dissection. Unchanged abdominal aortic aneurysm with stent graft and multiple stents to abdominal aortic branches.
--- NOTE | 2024-12-02 15:03 | PM.PN ---
Subjective Subjective: Patient was seen this morning, he sitting up in a chair, denies any fevers, chills, no cough he does report persistent shortness of breath although he feels he has been doing better, we will still waiting on the records from [facility] to see if he has ever had a coronary angiogram, patient is adamant that he had 1 there, they went through his radial artery, they told him the results were normal, Vitals/I&O/Wt Last Vital Signs Temp 97.5 F L 12/02/24 08:00 Pulse 96 12/02/24 14:40 Resp 23 H 12/02/24 12:30 BP 137/69 12/02/24 12:30 Pulse Ox 91 12/02/24 12:00 O2 Del Method Nasal Cannula 12/02/24 12:30 O2 Flow Rate 2 12/02/24 12:30 FiO2 21 11/30/24 23:15 12/02/24 12/02/24 12/02/24 06:59 14:59 22:59 Intake Total 375.333 / 2334.633 967.321 / 967.321 Output Total 1350 / 3250 400 / 400 Balance -974.667 / -915.367 567.321 / 567.321 Weight last 48 hrs Weight 55.13 kg Weight 55.338 kg Physical Exam Const: COMMON NORMALS: no acute distress and patient oriented x3 Resp: COMMON NORMALS: normal respiratory effort, No retractions and No use of accessory muscles AUSCULTATION: crackles Cardio: COMMON NORMALS: regular rate, regular rhythm, S1 normal heart sound present and S2 normal heart sound present RATE: regular rate RHYTHM: regular rhythm HEART SOUNDS: S1 normal heart sound present and S2 normal heart sound present GI: COMMON NORMALS: Normal to inspection, nondistended, normoactive bowel sounds present and non-tender Extremity: COMMON NORMALS: no pedal edema Neuro: COMMON NORMALS: patient oriented x3 Psych: COMMON NORMALS: mental status grossly normal Urinary Catheter Management: Cook: Cath Placed During This Visit: yes Reason for Continuing Indwelling Catheter: Accurate Measurement of Urinary Output in Critically Ill Patients Urinary Catheter Date of Insertion: 11/29/24 Urinary Catheter Time of Insertion: 13:34 Data 12/02/24 02:45 12/02/24 02:45 A&P Assessment and plan (1) Atrial fibrillation with RVR: (2) COPD (chronic obstructive pulmonary disease): (3) CAD (coronary artery disease): (4) Acute CHF (congestive heart failure): (5) S/P AAA repair: (6) Urinary retention: (7) Acute anemia: (8) NSTEMI (non-ST elevated myocardial infarction): (9) Pulmonary embolism: (10) Acute hypoxic respiratory failure: (11) CHF (congestive heart failure): (12) Systolic CHF: (13) Pneumonia: (14) Physical deconditioning: (15) Protein calorie malnutrition: (16) Current smoker: (17) Cardiogenic shock: Plan Possible pulmonary embolism? - [facility] patient has been more bedbound - Has NSTEMI, D-dimer 2.26 - Venous ultrasound negative for DVT CT/CT angio chest PE protcl [id number] IMPRESSION: 1. Non opacification of multiple peripheral pulmonary arteries including the right middle lobe and bilateral lower lobes. While potentially representing extensive pulmonary emboli, non opacification due to incomplete filling with contrast is suspected particularly given mixed blood and contrast in multiple pulmonary arteries. Consider repeat CT pulmonary angiogram as indicated. Plan - Increased risk of contrast-induced nephropathy, will hold off on repeating CT angiogram of the chest for now - Will watch kidney function closely - As creatinine is stable, we will go ahead and perform CT angiogram of the chest today - For now continue heparin drip - Monitor hemoglobin, stable Acute hypoxic respiratory failure -With evidence of acute respiratory distress, resolving - Multifactorial - Concerns for systolic CHF, BNP over 16,000, with systolic CHF - Does have bilateral pleural effusions - Does not look clinically fluid overloaded, 1+ pitting edema - Does have imaging concerning for moderate to right large pleural effusion, moderate left pleural effusion - Concerns for possible pneumonia CT imaging 2. Gqomxoqw-jg-tjtui right and moderate left pleural effusions with adjacent atelectasis. 3. Nonspecific interlobular septal thickening, ground-glass opacification, and diffuse bronchial wall thickening likely related to pulmonary edema. Plan -Currently in ICU. --10 L so far -Monitor respiratory status closely -Oxygen therapy -Lasix 40 IV twice daily, -Dobutamine drip -Currently on Levophed -fluid restriction 1000cc -Potassium, creatinine -Cardiac echo as below - Rocephin -Azithromycin -Sputum culture -Blood culture Systolic CHF exacerbation - EF 25 to 30% CONCLUSIONS LV systolic function is severely reduced with EF of 25-30% Left atrial dilation Mild aortic stenosis. Mild aortic regurgitation Mild tricuspid regurgitation Mild pulmonary hypertension Trace pulmonic regurgitation IVC is dilated Compared to prior echocardiogram from 2021, LV systolic function has decreased significantly. Plan -On dobutamine drip - Lasix 40 IV twice daily Concerns for cardiogenic shock -EF 25 to 30% - Monitor blood pressure closely - Moved to ICU - On Levophed drip - On amiodarone drip NSTEMI - Serial EKGs, serial troponins, telemetry monitoring - No chest pain complaints - Continue Plavix - Statin - Continue heparin drip Acute anemia -Hemoccult positive stool -Denies any bloody or black stools, denies any history of blood transfusions -Will start on Protonix, Carafate -Monitor hemoglobin every 4 hours -Is on heparin drip as above -Discussed risk and benefits with patient, patient and family voiced understanding, all questions answered, shared decision making, agreed to proceed Recent history of AAA repair due to concerns for endoleak -At [facility], hospitalization complicated by postoperative pneumonia Ultrasound abdominal aorta CONCLUSIONS Endograft with iliac extension is patent Mid aneurysm sac measures 4.1 x 3.6cm Distal sac measures 3.3 x 3.7cm Proximal iliac arteries are patent COPD, current smoker - DuoNeb as needed Physical deconditioning, protein, malnutrition, BMI 19.7 - Encourage protein shakes - Dietary eval Full code Heparin drip for DVT prophylaxis Plan for today IV diuresis, creatinine stable, CT angiogram of the chest, awaiting records from [facility], on Levophed, dobutamine PDMP PDMP Reviewed: Not Reviewed Attestations Medical Necessity Statement*: Patient requires hospitalization for acute anemia, systolic CHF, concerns for possible PE, Diagnoses Atrial fibrillation with RVR I48.91 COPD (chronic obstructive pulmonary disease) J44.9 Coronary artery disease involving [place] coronary artery of [place] heart without angina pectoris I25.10 Coronary Disease-Associated Artery/Lesion type: [place] artery [place] vs. transplanted heart: [place] heart Associated angina: without angina Acute CHF (congestive heart failure) I50.9 S/P AAA repair Z98.890; Z86.79 Urinary retention R33.9 Acute anemia D64.9 NSTEMI (non-ST elevated myocardial infarction) I21.4 Pulmonary embolism I26.99 Acute hypoxic respiratory failure J96.01 Acute systolic congestive heart failure I50.21 Heart failure chronicity: acute Heart failure type: systolic Systolic CHF I50.20 Pneumonia J18.9 Physical deconditioning R53.81 Protein calorie malnutrition E46 Current smoker F17.200 Cardiogenic shock R57.0
[2024-12-02] MEDS: cefTRIAXone 1,000 mg SDV 1000 MG IVP (15:21)
--- NOTE | 2024-12-02 16:09 | PC.NURSE ---
Request for records sent to [place], [place] at 0845, 1330, 1600. Called facility twice to ensure that the records will be sent to our facility stat.
[2024-12-02] MEDS: iohexol 350 mg/mL 500 mL Btl (per mL) IV (17:21)
[2024-12-02 19:27] LABS: Partial Thromboplastin Time 60.7 SECONDS (23.9-36.7)
[2024-12-02] MEDS: atorvastatin 40 mg Tablet 20 MG PO (20:41)
[2024-12-02] MEDS: LORazepam 0.5 mg Tablet PO (23:13)
[2024-12-03] VITALS (62 sets, daily range): BP systolic 80–148; BP diastolic 45–86; PULSE 77–129; RESP 8–43; TEMP 36.2–37.1; O2SAT 89–100
[2024-12-03 01:37] LABS: Partial Thromboplastin Time 60.4 SECONDS (23.9-36.7)
[2024-12-03] MEDS: heparin drip 25,000 UNIT/500 ML PREMIX 19 UNIT IV (03:50)
[2024-12-03 04:20] LABS: Basophils % 0.2 %; Eosinophils # 0.3 10^3/uL (0.0-0.8); Eosinophils % 2.9 %; Hematocrit 29.2 % (37-53); Lymphocytes # 1.9 10^3/uL (0.8-4.8); Lymphocytes % 21.9 %; Mean Corpuscular HGB Conc 33.2 g/dL (30-55); Mean Corpuscular Hemoglobin 30.3 pg (27-33); Mean Corpuscular Volume 91.3 fl (82-101); Mean Platelet Volume 8.9 fL (7.4-10.4); Monocytes # 1.1 10^3/uL (0.2-0.9); Monocytes % 12.2 %; Neutrophils # 5.38 10^3/uL (1.8-7.7); Neutrophils % 62.2 %; Nucleated Red Blood Cells % 0 %; Platelet Count 322 10^3/cmm (157-399); Red Cell Distribution Width 13.8 % (12.1-15.1); White Blood Count 8.64 10^3/uL (3.29-11.43)
[2024-12-03 04:45] LABS: Alanine Aminotransferase 18 U/L (0-41); Albumin Level 3.7 g/dL (3.5-5.2); Alkaline Phosphatase 102 U/L (40-130); Blood Urea Nitrogen 11 mg/dL (8-23); Calcium 9.3 mg/dL (8.5-10.5); Carbon Dioxide 35 mmol/L (22-29); Chloride 85 mmol/L (98-107); Globulin 3.1 g/dL (1.3-4.6); Glucose 83 mg/dL (65-115); Magnesium 1.8 mg/dL (1.7-2.3); Osmolality Calculated 269 mOsm/kg (285-295); Phosphorus 3.2 mg/dL (2.5-4.5); Sodium 130 mmol/L (136-145); Total Bilirubin 0.4 mg/dL (0.15-1.2); Total Protein 6.8 g/dL (6.6-8.7)
[2024-12-03 04:47] LABS: Anion Gap 13.4 (5-19); Aspartate Amino Transferase 22 U/L (0-40); Potassium 3.4 mmol/L (3.5-5.1)
[2024-12-03 04:56] LABS: NT Pro B Type Natriuretic Pept 3115 pg/mL (0-450)
[2024-12-03 08:29] LABS: Partial Thromboplastin Time 54.1 SECONDS (23.9-36.7)
[2024-12-03] MEDS: pantoprazole 40 mg SDV IVP ×2 (08:49→20:33)
[2024-12-03] MEDS: sucralfate 1 gm Tablet PO ×2 (08:49→20:33)
[2024-12-03] MEDS: heparin 5,000 unit/mL INJ 1 mL IVP ×2 (08:49→16:33)
[2024-12-03] MEDS: clopidogrel 75 mg Tablet PO (10:01)
[2024-12-03] MEDS: docusate sodium 100 mg Capsule PO ×2 (10:01→17:21)
[2024-12-03] MEDS: polyethylene glycol 3350 Pkt 17 gm PO (10:01)
[2024-12-03] MEDS: nicotine 21 mg Patch 1 PATCH TRANSDERMA (10:01)
[2024-12-03] MEDS: predniSONE 20 mg Tablet PO (10:02)
[2024-12-03] MEDS: azithromycin 250 mg Tablet PO (10:02)
[2024-12-03] MEDS: FUROsemide 10 mg/mL SDV 4mL 40 MG IVP (10:03)
[2024-12-03] MEDS: tamsulosin 0.4 mg Capsule PO (10:05)
--- NOTE | 2024-12-03 11:59 | PC.SOCIAL ---
IMM Updated Updated pt on IMM. No questions voiced. Provided pt a copy. Initialed, dated, & timed copy in chart.
--- NOTE | 2024-12-03 14:12 | P.PN_ITS ---
<Statement entered by Reed Roca M.D - 12/09/24 10:14> Patient was cared for in conjunction with an advanced practice practitioner.? I reviewed the chart and all pertinent data including imaging, telemetry, and laboratory results.? I discussed the patient in detail with the advanced practice practitioner.? Please see?their note for progress note, testing results and agreed upon plan of care for the patient. Subjective 2 Subjective: Patient doing well today. He overall appears well compensated. Appears euvolemic. He is currently off of his Levophed and dobutamine. He is getting Lasix 40 IV push daily. Blood pressure and heart rate is stable. Creatinine stable at 0.6. He states his breathing is much improved. He underwent a repeat CTA of the chest today and was able to lie flat without any issues. This ruled out PE. We did review records from [place] and patient had a 70% left circumflex stenosis in September. At that time his ejection fraction was normal at 50 to 55%. Vitals/I&O/Wt Last Vital Signs Temp 97.2 F L 12/03/24 00:00 Pulse 99 12/03/24 07:55 Resp 16 12/03/24 07:55 BP 130/67 12/03/24 07:15 Pulse Ox 93 12/03/24 07:55 O2 Del Method Nasal Cannula 12/03/24 07:55 O2 Flow Rate 2 12/03/24 07:55 FiO2 21 11/30/24 23:15 12/02/24 12/03/24 12/03/24 22:59 06:59 14:59 Intake Total 1188.88 / 2164.576 261.534 / 2426.110 Output Total 470 / 870 650 / 1520 Balance 718.88 / 1294.576 -388.466 / 906.110 Weight last 48 hrs Weight 124 lb Weight 121 lb 8.653 oz Physical Exam 2 Narrative: General: No apparent distress, healthy appearing, well nourished HENMT: normoceophalic Muskuloskeletal: Full ROM Respiratory: Normal respiratory effort, clear to auscultation bilaterally throughout all lung orozco, no use of accessory muscles Cardio: No JVD, regular rate, regular rhythm, S1 S2 normal, no murmurs, peripheral pulses 2+ radial palpated bilaterally GI: Normal to inspection, nondistended Extremities: Full ROM, normal, normal capillary refill, no cyanosis or edema Neuro: Alert and oriented x4, no focal motor deficits Psych: Affect normal, denies suicidal ideation, mental status grossly normal Skin: No rashes or lesions noted, no wounds Urinary Catheter Management: Cook: Cath Placed During This Visit: yes Reason for Continuing Indwelling Catheter: Accurate Measurement of Urinary Output in Critically Ill Patients Urinary Catheter Date of Insertion: 11/29/24 Urinary Catheter Time of Insertion: 13:34 Data 12/03/24 03:54 12/03/24 03:54 A&P Assessment and plan (1) CAD (coronary artery disease): (2) CHF (congestive heart failure): (3) S/P AAA repair: (4) Cardiogenic shock: Plan Patient appears euvolemic we will continue Lasix 40 daily. At this time due to recent drop in EF from 50-55 to now less than 35%, patient will require angiogram possible PCI. Will plan on doing this tomorrow. The risk and benefits were discussed in detail with the patient. The risk of bleeding, hematoma, vascular injury, myocardial infarction, myocardial perforation, malignant cardiac arrhythmias ,CVA, renal failure and other concomitant complications were explained in detail. Will go ahead and add aspirin to his regimen. PDMP PDMP Reviewed: Not Reviewed Attestations 2 Medical Necessity Statement*: Defer to primary Coding Level of Care Code Acute Code for [facility] Diagnoses Coronary artery disease involving [place] coronary artery of [place] heart without angina pectoris I25.10 Coronary Disease-Associated Artery/Lesion type: [place] artery [place] vs. transplanted heart: [place] heart Associated angina: without angina Acute systolic congestive heart failure I50.21 Heart failure chronicity: acute Heart failure type: systolic S/P AAA repair Z98.890; Z86.79 Cardiogenic shock R57.0
[2024-12-03] MEDS: cefTRIAXone 1,000 mg SDV 1000 MG IVP (14:26)
[2024-12-03] MEDS: aspirin 81 mg EC Tablet PO (14:26)
[2024-12-03 14:48] LABS: Partial Thromboplastin Time 54.5 SECONDS (23.9-36.7)
--- NOTE | 2024-12-03 17:33 | P.PN_ITS ---
Subjective 2 Subjective: Patient was seen this morning, currently alert orient x 3, following all commands, sitting up in a chair, he was able to take a few steps yesterday, but did feel a bit dizzy, discussed with him that I spoke to [facility] yesterday and was able to speak to their heat transfer technician and they told me over the phone that he had a 70% left circumflex lesion on the cath done on September 2024, but the medically managed it, his RCA and LAD did not show any obstructive CAD, I also reviewed the records I still as of yet have not received cath report but they have pushed over the images, hopefully cardiology can review, but I did look at the discharge summary which showed on the cath report there was no obstructive CAD, and his echocardiogram showed an EF of 50%, we discussed his CTA yesterday that I completed did not show any evidence of PE so the question is why has his EF gone down to 30%, will await for cardiology consultation, plan on continue to diurese him, he is in agreement Vitals/I&O/Wt Last Vital Signs Temp 98.2 F 12/03/24 13:00 Pulse 91 12/03/24 16:00 Resp 37 H 12/03/24 16:00 BP 105/69 12/03/24 16:00 Pulse Ox 94 12/03/24 16:00 O2 Del Method Nasal Cannula 12/03/24 16:00 O2 Flow Rate 2 12/03/24 16:00 FiO2 21 11/30/24 23:15 12/03/24 12/03/24 12/03/24 06:59 14:59 22:59 Intake Total 261.534 / 2426.110 879.167 / 879.167 168.667 / 1047.834 Output Total 650 / 1520 1300 / 1300 Balance -388.466 / 906.110 -420.833 / -420.833 168.667 / -252.166 Weight last 48 hrs Weight 56.245 kg Weight 55.13 kg Physical Exam 2 Const: COMMON NORMALS: no acute distress and patient oriented x3 Resp: COMMON NORMALS: normal respiratory effort, No retractions, No use of accessory muscles and clear to auscultation bilaterally AUSCULTATION: clear to auscultation bilaterally Cardio: COMMON NORMALS: regular rate, regular rhythm, S1 normal heart sound present and S2 normal heart sound present RATE: regular rate RHYTHM: r egular rhythm HEART SOUNDS: S1 normal heart sound present and S2 normal heart sound present GI: COMMON NORMALS: Normal to inspection, nondistended, normoactive bowel sounds present and non-tender Extremity: COMMON NORMALS: no pedal edema Neuro: COMMON NORMALS: patient oriented x3 Psych: COMMON NORMALS: mental status grossly normal Urinary Catheter Management: Cook: Cath Placed During This Visit: yes Reason for Continuing Indwelling Catheter: Accurate Measurement of Urinary Output in Critically Ill Patients Urinary Catheter Date of Insertion: 11/29/24 Urinary Catheter Time of Insertion: 13:34 Data 12/03/24 03:54 12/03/24 03:54 Micro: Microbiology 11/28/24 15:13 Blood Culture - Final Blood NO GROWTH AFTER 5 DAYS 11/28/24 15:15 Blood Culture - Final Blood NO GROWTH AFTER 5 DAYS A&P Assessment and plan (1) Atrial fibrillation with RVR: (2) COPD (chronic obstructive pulmonary disease): (3) CAD (coronary artery disease): (4) Acute CHF (congestive heart failure): (5) S/P AAA repair: (6) Urinary retention: (7) Acute anemia: (8) NSTEMI (non-ST elevated myocardial infarction): (9) Pulmonary embolism: (10) Acute hypoxic respiratory failure: (11) CHF (congestive heart failure): (12) Systolic CHF: (13) Pneumonia: (14) Physical deconditioning: (15) Protein calorie malnutrition: (16) Current smoker: (17) Cardiogenic shock: Plan Possible pulmonary embolism? Repeat CT angiogram of the chest does not show any significant radiographic evidence of pulmonary embolism - [facility] has been more bedbound - Has NSTEMI, D-dimer 2.26 - Venous ultrasound negative for DVT CT/CT angio chest PE protcl [id number] IMPRESSION: 1. Non opacification of multiple peripheral pulmonary arteries including the right middle lobe and bilateral lower lobes. While potentially representing extensive pulmonary emboli, non opacification due to incomplete filling with contrast is suspected particularly given mixed blood and contrast in multiple pulmonary arteries. Consider repeat CT pulmonary angiogram as indicated. - Repeat CT angiogram the chest CT/CT angio chest PE protcl [id number] IMPRESSION: 1. No pulmonary embolism is identified. 2. There are fluid/fluid levels (hyperdense contrast layering dependently beneath unopacified blood) in the left lower lobe pulmonary artery branches compared to the remainder of the lung parenchyma compatible with sluggish flow attributed to the much larger right main pulmonary artery compared to the left. Plan - Monitor Acute hypoxic respiratory failure -With evidence of acute respiratory distress, resolving - Multifactorial - Concerns for systolic CHF, BNP over 16,000, with systolic CHF - Does have bilateral pleural effusions - Does not look clinically fluid overloaded, 1+ pitting edema - Does have imaging concerning for moderate to right large pleural effusion, moderate left pleural effusion - Concerns for possible pneumonia CT imaging 2. [id number] right and moderate left pleural effusions with adjacent atelectasis. 3. Nonspecific interlobular septal thickening, ground-glass opacification, and diffuse bronchial wall thickening likely related to pulmonary edema. Plan -Currently in ICU. --10 L so far -Monitor respiratory status closely -Oxygen therapy -Lasix 40 IV twice daily, -Dobutamine drip off -Levophed off -fluid restriction 1000cc -Potassium, creatinine -Cardiac echo as below - Rocephin completed -Azithromycin completed -Sputum culture -Blood culture Systolic CHF exacerbation - EF 25 to 30% CONCLUSIONS LV systolic function is severely reduced with EF of 25-30% Left atrial dilation Mild aortic stenosis. Mild aortic regurgitation Mild tricuspid regurgitation Mild pulmonary hypertension Trace pulmonic regurgitation IVC is dilated Compared to prior echocardiogram from 2021, LV systolic function has decreased significantly. Plan -dobutamine drip off - Lasix 40 IV twice daily Concerns for cardiogenic shock -EF 25 to 30% - Monitor blood pressure closely - Moved to ICU - Levophed drip off - amiodarone drip off NSTEMI - Serial EKGs, serial troponins, telemetry monitoring - No chest pain complaints - Continue Plavix - Statin - Continue heparin drip - N.p.o. midnight, cardiac cath tomorrow Acute anemia -Hemoccult positive stool -Denies any bloody or black stools, denies any history of blood transfusions -Will start on Protonix, Carafate -Monitor hemoglobin, hemoglobin stable -Is on heparin drip as above -Discussed risk and benefits with patient, patient and family voiced understanding, all questions answered, shared decision making, agreed to proceed Recent history of AAA repair due to concerns for endoleak -At [facility], hospitalization complicated by postoperative pneumonia Ultrasound abdominal aorta CONCLUSIONS Endograft with iliac extension is patent Mid aneurysm sac measures 4.1 x 3.6cm Distal sac measures 3.3 x 3.7cm Proximal iliac arteries are patent COPD, current smoker - DuoNeb as needed Physical deconditioning, protein, malnutrition, BMI 19.7 - Encourage protein shakes - Dietary eval Full code Heparin drip for DVT prophylaxis Plan for today IV diuresis, creatinine stable, n.p.o. midnight, for cardiac cath tomorrow morning PDMP PDMP Reviewed: Not Reviewed Attestations 2 Medical Necessity Statement*: Patient requires hospitalization for systolic CHF, NSTEMI Diagnoses Atrial fibrillation with RVR I48.91 COPD (chronic obstructive pulmonary disease) J44.9 Coronary artery disease involving [place] coronary artery of [place] heart without angina pectoris I25.10 Associated angina: without angina Coronary Disease-Associated Artery/Lesion type: [place] artery [place] vs. transplanted heart: [place] heart Acute CHF (congestive heart failure) I50.9 S/P AAA repair Z98.890; Z86.79 Urinary retention R33.9 Acute anemia D64.9 NSTEMI (non-ST elevated myocardial infarction) I21.4 Pulmonary embolism I26.99 Acute hypoxic respiratory failure J96.01 Acute systolic congestive heart failure I50.21 Heart failure chronicity: acute Heart failure type: systolic Systolic CHF I50.20 Pneumonia J18.9 Physical deconditioning R53.81 Protein calorie malnutrition E46 Current smoker F17.200 Cardiogenic shock R57.0
[2024-12-03] MEDS: atorvastatin 40 mg Tablet 20 MG PO (20:33)
[2024-12-03] MEDS: LORazepam 0.5 mg Tablet PO (20:33)
[2024-12-03 21:05] LABS: Partial Thromboplastin Time 56.4 SECONDS (23.9-36.7)
[2024-12-04] VITALS (38 sets, daily range): BP systolic 92–143; BP diastolic 42–95; PULSE 76–116; RESP 15–32; TEMP 36.4–36.7; O2SAT 91–100
--- NOTE | 2024-12-04 02:47 | PC.NURSE ---
At shift change heparin running at 20 ml per hour, titrated on MAR to reflect same. PTT ran as per protocol, no change needed, continued to run at 20 ml/hr.
[2024-12-04 04:19] LABS: Basophils % 0.2 %; Eosinophils # 0.2 10^3/uL (0.0-0.8); Lymphocytes # 2.1 10^3/uL (0.8-4.8); Lymphocytes % 22.7 %; Mean Corpuscular HGB Conc 34.1 g/dL (30-55); Mean Corpuscular Hemoglobin 31.4 pg (27-33); Mean Corpuscular Volume 92.1 fl (82-101); Mean Platelet Volume 8.8 fL (7.4-10.4); Monocytes # 0.9 10^3/uL (0.2-0.9); Neutrophils # 5.94 10^3/uL (1.8-7.7); Neutrophils % 64.7 %; Nucleated Red Blood Cells % 0 %; Platelet Count 311 10^3/cmm (157-399); Red Blood Count 3.15 10^6/uL (3.85-5.65); White Blood Count 9.19 10^3/uL (3.29-11.43)
[2024-12-04 04:31] LABS: Partial Thromboplastin Time 59.5 SECONDS (23.9-36.7)
[2024-12-04 04:35] LABS: Alanine Aminotransferase 22 U/L (0-41); Albumin Level 3.6 g/dL (3.5-5.2); Alkaline Phosphatase 96 U/L (40-130); Blood Urea Nitrogen 11 mg/dL (8-23); Calcium 9.3 mg/dL (8.5-10.5); Carbon Dioxide 36 mmol/L (22-29); Chloride 87 mmol/L (98-107); Creatinine Clr Calc Pharmacy 57.6121; Glucose 86 mg/dL (65-115); Magnesium 1.8 mg/dL (1.7-2.3); Osmolality Calculated 271 mOsm/kg (285-295); Phosphorus 3.4 mg/dL (2.5-4.5); Sodium 131 mmol/L (136-145); Total Bilirubin 0.4 mg/dL (0.15-1.2); Total Protein 6.6 g/dL (6.6-8.7)
[2024-12-04 04:36] LABS: Anion Gap 11.6 (5-19); Aspartate Amino Transferase 25 U/L (0-40); Potassium 3.6 mmol/L (3.5-5.1)
[2024-12-04 04:48] LABS: NT Pro B Type Natriuretic Pept 3723 pg/mL (0-450)
[2024-12-04] MEDS: heparin drip 25,000 UNIT/500 ML PREMIX 20 UNIT IV (05:22)
[2024-12-04] MEDS: diphenhydrAMINE 50 mg Capsule PO (05:22)
--- NOTE | 2024-12-04 06:12 | XACV_ITS ---
Exam Room: 2 Ht: 163 cm Wt: 56 kg BSA: 1.59 m2 Gender: Male : 1945 Any Known Allergies: No known allergies Exam Priority: Routine Procedure(s): Procedure Description: Diagnostic procedure Procedure Description: Coronary Angiography Diagnostic Cath Status: Urgent Diagnostic Findings * Left Main has no significant disease. * Left Anterior Descending has proximal vessel 20-30% stenosis. * Right Coronary Artery is small sized vessel with no significant stenosis. * Distal Circumflex: obstructive 60-70% stenosis, MILE: 3 flow. * Second Obtuse Marginal Branch Segment: obstructive 70% stenosis, MILE: 3 flow. * Coronary angiography shows left dominance. Conclusions 1. Distal left circumflex artery/ OM 2 has borderline significant stenosis. Can not explain the LV dysfunction. We will continue with medical therapy. Recommendations * Aggressive medical therapy for congestive heart failure. * Outpatient cardiology follow up in 2-4 weeks. Interventional RX Recommendation: medical therapy and/or counseling Diagnostic RX Recommendation: medical therapy and/or counseling Anticoagulation: Heparin Pressures Phase:Rest AO : 100 / 65 ( 80 ) @ 8:11:00 AM Clinical Evaluation EBL: 5mL-10mL Procedural Details Procedure Consent Obtained. Pre-Procedure Time Out. Identified patient by full name and date of as verbalized by the patient/guarantor. Does the consent match the physician's order: Yes. Accurate & Complete Informed Consent: Yes. Inpatient/Outpatient History & Physical on Chart: Yes. If H&P is completed, is and addenduem needed: No. Visualize and Verify Site with Patient/Guarantor: N/A. Relevant Radiology Images available: Yes. The risks, benefits, and alternatives of sedation and/or procedure were discussed by physician. The patient agrees to continue. Procedure started. [facility] Clinical Fraility Score: 5: Mildly Frail. [employer] Indications: Other/NSTEMI. Chest Pain Symptom Assessment: Typical Angina Symptoms. Cardiovascular Instability: No. Correct patient, site and procedure confirmed by cath team. PERRLA. Strong, equal hand patient portal representative bilaterally. Lungs clear x 5 lobes. IV Site on Arrival: 20 gauge in the right wrist. IV Site on Arrival: PICC line intact to the left bicep area. IV Fluids: 0.9% NaCl at KVO. 0 mL infused prior to slab tripper. Pre Procedural Pulses: bilateral radial was 3+. Oxygen started at 2liters/min via nasal canula. bilateral groins was prepped with chloroprep then draped in the usual sterile fashion. Physician notified. Baseline sample Acquired. HR: 99 BPM. Patient's family unavailable. Equipment: 6F - Radial. Cardiac Cath Pack. ACReCellular Manifold Kit Model BT 2000. Heparinized Saline (2 units/mL), 1000 mL bag. Physician arrived. Physician scrubbed in. Immediate Pre-Procedure Time Out. Correct Patient: Yes; Correct Procedure: Yes; Correct Site: Yes; Correct Patient Position: Yes; Correct Supplies: Yes; Dried Flammable Prep: Yes; Blood Products Available: N/A;. Lidocaine 1% infiltrated to the right radial. Arterial access obtained. A 5 [place] TIG catheter in over the exchange J wire. Exchange J wire out, hand injection of the radial artery performed through the catheter. 0.035 x 260cm stiff angled glidewire in through the catheter. Glidewire out. Multiple views taken of left coronary artery. Catheter removed over the exchange J wire. A 5 [place] JR4 catheter in over wire. Multiple views taken of right coronary artery. Catheter removed over the exchange J wire. Physician scrubbed out. A TR Band was successful obtaining hemostatsis at the Right Radial artery insertion site. Post Procedure: Pulses reassessed and unchanged. PERRLA. Strong, equal hand patient portal representative bilaterally. No VTE prophylaxis required. Medication's Wasted: Lidocaine 1% = 18 mL. Medication's Wasted: Nitro = 49.8 mg. Medication's Wasted: Heparin = 4000 units. Medication's Wasted: Other = Versed 1 mg. Medication's Wasted: Other = Fentanyl 75 mcg. Total IV fluids: 10 mL. Post-op diagnosis: Significant OM disease,; medical management. Complications: none. Estimated blood loss: 5mL-10mL. Responsiveness - Normal response to verbal stimuli; alert and oriented, PERRLA. Airway - Unaffected, no intervention required; spontaneous ventilation. Circulation: W/N/L, pulses unchanged. Nausea/Vomiting: No. Procedure completed. Patient transferred by bed to ICU. Vital chart was stopped. Access Site Site: Right Radial artery Sheath Size: 6 Fr Hemostasis Method: TR Band Hemostasis Success: Successful Procedure Medications Start: 6:59 AM Stop: 6:59 AM Medication: Versed Amount: 1 mg Route: I.V. Start: 6:59 AM Stop: 6:59 AM Medication: Fentanyl Amount: 25 mcg Route: I.V. Start: 7:08 AM Stop: 7:08 AM Medication: Heparin Amount: 2000 units Route: I.V. Start: 7:05 AM Stop: 7:05 AM Medication: Nitrogylcerin Amount: 200 mcg Route: I.A. I, the attending physician, have reviewed and verified all procedure medications. Yes, all medications given per verbal order History/Risk Factors Hypertension: No Dyslipidemia: No Peripheral Arterial Disease (PAD): No Myocardial Infarction (HI): No Obesity: No Renal Disease: No Tobacco Use: Current/Recent(w/in 1 year) Prior Interventions PCI: No CABG: No Valve Surgery: No Report Signatures Finalized by Reed Roca MD on 12/04/2024 07:38 AM
[2024-12-04] MEDS: aspirin 81 mg EC Tablet PO (06:44)
[2024-12-04] MEDS: clopidogrel 75 mg Tablet PO (06:44)
--- NOTE | 2024-12-04 06:58 | W.PM.OPSUD ---
Surgery/Procedure H&P Update DATE OF PROCEDURE: December 04, 2024 DATE H&P PERFORMED: 11/28/24 H&P UPDATE INFORMATION: I have reviewed H&P completed within last 30 days, I have examined patient prior to procedure and No changes to prior documentation PREOP DIAGNOSIS: LV dysfunction PRIMARY INDICATION FOR PROCEDURE: LV dysfunction PLANNED PROCEDURE: Operation Date: 12/04/24 07:00 Proposed Procedures p Cardiac Catheterization(Left) - Nba Collins MD Possible PCI PATIENT REASSESSED PRIOR TO SEDATION, WITH NO CHANGE NOTED: Yes PHYSICAL EXAM: alert, oriented x 3, clear to auscultation bilaterally and regular rate & rhythm AIRWAY EVAL/ANESTHESIA PLAN: normal airway, ASA III, Local Anesthesia, Risks, benefits & alternatives of sedation and/or procedure discussed and Patient agrees to continue as planned ADDITIONAL INFORMATION: Moderate sedation
[2024-12-04] MEDS: tamsulosin 0.4 mg Capsule PO (08:20)
[2024-12-04] MEDS: predniSONE 20 mg Tablet PO (08:20)
[2024-12-04] MEDS: docusate sodium 100 mg Capsule PO ×2 (08:20→18:07)
[2024-12-04] MEDS: sucralfate 1 gm Tablet PO ×2 (08:20→21:07)
[2024-12-04] MEDS: nicotine 21 mg Patch 1 PATCH TRANSDERMA (08:20)
[2024-12-04] MEDS: pantoprazole 40 mg SDV IVP ×2 (08:21→21:07)
--- NOTE | 2024-12-04 08:34 | PC.NURSE ---
confirmed with Provider about fluids, lasix and heaparn GTT Instructions recived to hold lasix and fluids resume heaparin gtt 4 hours post cardiac cath
[2024-12-04 10:31] LABS: Magnesium 1.7 mg/dL (1.7-2.3)
--- NOTE | 2024-12-04 11:50 | PC.NURSE ---
TR band removed from R wrist. No bleeding. Dressing in place. Pulses present throughout Tr band removal and after. Patient reports no pain.
--- NOTE | 2024-12-04 15:33 | P.PN_ITS ---
<Statement entered by Reed Roca M.D - 12/09/24 10:21> Patient was cared for in conjunction with an advanced practice practitioner.? I reviewed the chart and all pertinent data including imaging, telemetry, and laboratory results.? I discussed the patient in detail with the advanced practice practitioner.? Please see?their note for progress note, testing results and agreed upon plan of care for the patient. Patient has moderate to severe Lcx/ OM disease that does not explain drop in EF. Medical therapy for CAD Subjective 2 Subjective: Patient is euvolemic at this time. Blood pressure is back to normal and he is off of Levophed drip. Currently is 125/68. Heart rate is elevated at times but remains sinus rhythm. Coronary angiogram today showed distal circumflex about 60 to 70% stenosed OM 270% stenosis. This does not explain the drop in LV function thus medical management was recommended. He was -1211 L over 24 hours. Creatinine is stable at 0.6. Vitals/I&O/Wt Last Vital Signs Temp 97.6 F 12/04/24 10:00 Pulse 92 12/04/24 15:24 Resp 16 12/04/24 14:30 BP 125/68 12/04/24 14:30 Pulse Ox 97 12/04/24 14:30 O2 Del Method Nasal Cannula 12/04/24 14:30 O2 Flow Rate 2 12/04/24 09:28 FiO2 21 11/30/24 23:15 12/04/24 12/04/24 12/04/24 06:59 14:59 22:59 Intake Total 158.766 / 1520.000 469.667 / 469.667 Output Total 950 / 2400 Balance -791.234 / -880.000 469.667 / 469.667 Weight last 48 hrs Weight 124 lb Weight 124 lb Physical Exam 2 Narrative: General: No apparent distress, healthy appearing, well nourished HENMT: normoceophalic Muskuloskeletal: Full ROM Respiratory: Normal respiratory effort, clear to auscultation bilaterally throughout all lung orozco, no use of accessory muscles Cardio: No JVD, regular rate, regular rhythm, S1 S2 normal, no murmurs, peripheral pulses 2+ radial palpated bilaterally GI: Normal to inspection, nondistended Extremities: Full ROM, normal, normal capillary refill, no cyanosis or edema Neuro: Alert and oriented x4, no focal motor deficits Psych: Affect normal, denies suicidal ideation, mental status grossly normal Skin: No rashes or lesions noted, no wounds Urinary Catheter Management: Cook: Cath Placed During This Visit: yes Reason for Continuing Indwelling Catheter: Accurate Measurement of Urinary Output in Critically Ill Patients Urinary Catheter Date of Insertion: 11/29/24 Urinary Catheter Time of Insertion: 13:34 Data 12/05/24 03:24 12/05/24 03:24 Micro: Microbiology 11/28/24 15:13 Blood Culture - Final Blood NO GROWTH AFTER 5 DAYS 11/28/24 15:15 Blood Culture - Final Blood NO GROWTH AFTER 5 DAYS A&P Assessment and plan (1) CAD (coronary artery disease): (2) CHF (congestive heart failure): (3) S/P AAA repair: (4) Cardiogenic shock: Plan Patient doing well overall. Blood pressure stable. Heart rate elevated at times. Will go ahead and add low-dose metoprolol succinate 12.5 daily and see how patient's blood pressure tolerates. May consider starting Entresto at some point if patient's blood pressure allows. Heparin drip has been discontinued due to medical management for underlying CAD. Patient is a DNR but states that he still would like the LifeVest and understands that it will resuscitate him if his heart stops. Will give Lasix 20 twice daily starting this afternoon and consider discharge tomorrow if patient is doing well from a cardiology standpoint. PDMP PDMP Reviewed: Not Reviewed Attestations 2 Medical Necessity Statement*: Deferred to primary Coding Level of Care Code Acute Code for [facility] Diagnoses Coronary artery disease involving [place] coronary artery of [place] heart without angina pectoris I25.10 Associated angina: without angina Coronary Disease-Associated Artery/Lesion type: [place] artery [place] vs. transplanted heart: [place] heart Acute systolic congestive heart failure I50.21 Heart failure chronicity: acute Heart failure type: systolic S/P AAA repair Z98.890; Z86.79 Cardiogenic shock R57.0
--- NOTE | 2024-12-04 15:42 | PM.PN ---
Subjective Subjective: Patient was seen this morning, he is seen after his cardiac catheterization, no chest pain, no palpitations, shortness of breath, no abdominal pain, no lightheadedness Vitals/I&O/Wt Last Vital Signs Temp 97.6 F 12/04/24 10:00 Pulse 92 12/04/24 15:24 Resp 16 12/04/24 14:30 BP 125/68 12/04/24 14:30 Pulse Ox 97 12/04/24 14:30 O2 Del Method Nasal Cannula 12/04/24 14:30 O2 Flow Rate 2 12/04/24 09:28 FiO2 21 11/30/24 23:15 12/04/24 12/04/24 12/04/24 06:59 14:59 22:59 Intake Total 158.766 / 1520.000 469.667 / 469.667 Output Total 950 / 2400 Balance -791.234 / -880.000 469.667 / 469.667 Weight last 48 hrs Weight 56.245 kg Weight 56.245 kg Physical Exam Const: COMMON NORMALS: no acute distress and patient oriented x3 Resp: COMMON NORMALS: normal respiratory effort, No retractions, No use of accessory muscles and clear to auscultation bilaterally AUSCULTATION: clear to auscultation bilaterally Cardio: COMMON NORMALS: regular rate, regular rhythm, S1 normal heart sound present and S2 normal heart sound present RATE: regular rate RHYTHM: regular rhythm HEART SOUNDS: S1 normal heart sound present and S2 normal heart sound present GI: COMMON NORMALS: Normal to inspection, nondistended, normoactive bowel sounds present and non-tender Extremity: COMMON NORMALS: no calf tenderness and no pedal edema Neuro: COMMON NORMALS: patient oriented x3 Psych: COMMON NORMALS: mental status grossly normal Urinary Catheter Management: Cook: Cath Placed During This Visit: yes Reason for Continuing Indwelling Catheter: Accurate Measurement of Urinary Output in Critically Ill Patients Urinary Catheter Date of Insertion: 11/29/24 Urinary Catheter Time of Insertion: 13:34 Data 12/04/24 04:07 12/04/24 10:08 Micro: Microbiology 11/28/24 15:13 Blood Culture - Final Blood NO GROWTH AFTER 5 DAYS 11/28/24 15:15 Blood Culture - Final Blood NO GROWTH AFTER 5 DAYS A&P Assessment and plan (1) Atrial fibrillation with RVR: (2) COPD (chronic obstructive pulmonary disease): (3) CAD (coronary artery disease): (4) Acute CHF (congestive heart failure): (5) S/P AAA repair: (6) Urinary retention: (7) Acute anemia: (8) NSTEMI (non-ST elevated myocardial infarction): (9) Pulmonary embolism: (10) Acute hypoxic respiratory failure: (11) CHF (congestive heart failure): (12) Systolic CHF: (13) Pneumonia: (14) Physical deconditioning: (15) Protein calorie malnutrition: (16) Current smoker: (17) Cardiogenic shock: Plan Possible pulmonary embolism? Repeat CT angiogram of the chest does not show any significant radiographic evidence of pulmonary embolism - [facility] patient has been more bedbound - Has NSTEMI, D-dimer 2.26 - Venous ultrasound negative for DVT CT/CT angio chest PE protcl [id number] IMPRESSION: 1. Non opacification of multiple peripheral pulmonary arteries including the right middle lobe and bilateral lower lobes. While potentially representing extensive pulmonary emboli, non opacification due to incomplete filling with contrast is suspected particularly given mixed blood and contrast in multiple pulmonary arteries. Consider repeat CT pulmonary angiogram as indicated. - Repeat CT angiogram the chest CT/CT angio chest PE protcl [id number] IMPRESSION: 1. No pulmonary embolism is identified. 2. There are fluid/fluid levels (hyperdense contrast layering dependently beneath unopacified blood) in the left lower lobe pulmonary artery branches compared to the remainder of the lung parenchyma compatible with sluggish flow attributed to the much larger right main pulmonary artery compared to the left. Plan - Monitor Acute hypoxic respiratory failure -With evidence of acute respiratory distress, resolving - Multifactorial - Concerns for systolic CHF, BNP over 16,000, with systolic CHF - Does have bilateral pleural effusions - Does not look clinically fluid overloaded, 1+ pitting edema - Does have imaging concerning for moderate to right large pleural effusion, moderate left pleural effusion - Concerns for possible pneumonia CT imaging 2. [id number] right and moderate left pleural effusions with adjacent atelectasis. 3. Nonspecific interlobular septal thickening, ground-glass opacification, and diffuse bronchial wall thickening likely related to pulmonary edema. Plan -Currently in ICU. - -10 L so far -Monitor respiratory status closely -Oxygen therapy - Currently on p.o. Lasix -Dobutamine drip off -Levophed off -fluid restriction 1000cc -Potassium, creatinine -Cardiac echo as below - Rocephin completed -Azithromycin completed -Sputum culture -Blood culture Systolic CHF exacerbation - EF 25 to 30% CONCLUSIONS LV systolic function is severely reduced with EF of 25-30% Left atrial dilation Mild aortic stenosis. Mild aortic regurgitation Mild tricuspid regurgitation Mild pulmonary hypertension Trace pulmonic regurgitation IVC is dilated Compared to prior echocardiogram from 2021, LV systolic function has decreased significantly. Plan -dobutamine drip off - Lasix 40 IV twice daily Concerns for cardiogenic shock, resolving -EF 25 to 30% - Monitor blood pressure closely - Moved to cardiac stepdown unit - Levophed drip off - amiodarone drip off NSTEMI - Serial EKGs, serial troponins, telemetry monitoring - No chest pain complaints - Continue Plavix - Statin - Continue heparin drip - N.p.o. midnight, cardiac cath, no obstructive CAD, will await report, continue medical management Acute anemia -Hemoccult positive stool -Denies any bloody or black stools, denies any history of blood transfusions -Will start on Protonix, Carafate -Monitor hemoglobin, hemoglobin stable -Is on heparin drip as above -Discussed risk and benefits with patient, patient and family voiced understanding, all questions answered, shared decision making, agreed to proceed Recent history of AAA repair due to concerns for endoleak -At [facility], hospitalization complicated by postoperative pneumonia Ultrasound abdominal aorta CONCLUSIONS Endograft with iliac extension is patent Mid aneurysm sac measures 4.1 x 3.6cm Distal sac measures 3.3 x 3.7cm Proximal iliac arteries are patent COPD, current smoker - DuoNeb as needed Physical deconditioning, protein, malnutrition, BMI 19.7 - Encourage protein shakes - Dietary eval Full code Heparin drip for DVT prophylaxis Plan for today moved to cardiac stepdown unit, PT OT PDMP PDMP Reviewed: Not Reviewed Attestations Medical Necessity Statement*: Patient requires hospitalization for NSTEMI, CHF Diagnoses Atrial fibrillation with RVR I48.91 COPD (chronic obstructive pulmonary disease) J44.9 Coronary artery disease involving [place] coronary artery of [place] heart without angina pectoris I25.10 Coronary Disease-Associated Artery/Lesion type: [place] artery [place] vs. transplanted heart: [place] heart Associated angina: without angina Acute CHF (congestive heart failure) I50.9 S/P AAA repair Z98.890; Z86.79 Urinary retention R33.9 Acute anemia D64.9 NSTEMI (non-ST elevated myocardial infarction) I21.4 Pulmonary embolism I26.99 Acute hypoxic respiratory failure J96.01 Acute systolic congestive heart failure I50.21 Heart failure chronicity: acute Heart failure type: systolic Systolic CHF I50.20 Pneumonia J18.9 Physical deconditioning R53.81 Protein calorie malnutrition E46 Current smoker F17.200 Cardiogenic shock R57.0
[2024-12-04] MEDS: FUROsemide 20 mg Tablet PO (15:50)
--- NOTE | 2024-12-04 16:15 | PC.NURSE ---
Patient transferred via wheelchair on 2 L NC, AOX4, all belongings with patient, family at bedside, patient oriented to room and call light. Patient resting in bed on 2L NC, no requests or complaints at the time of transfer.
[2024-12-04] MEDS: atorvastatin 40 mg Tablet 20 MG PO (21:05)
[2024-12-04] MEDS: LORazepam 0.5 mg Tablet PO (22:28)
[2024-12-05] VITALS (7 sets, daily range): BP systolic 102–131; BP diastolic 63–75; PULSE 79–105; RESP 16–22; TEMP 36.2–37.2; O2SAT 90–94
[2024-12-05 04:08] LABS: Basophils % 0.1 %; Eosinophils # 0.2 10^3/uL (0.0-0.8); Eosinophils % 2.3 %; Hematocrit 29.3 % (37-53); Lymphocytes # 1.9 10^3/uL (0.8-4.8); Lymphocytes % 24.1 %; Mean Corpuscular HGB Conc 33.1 g/dL (30-55); Mean Corpuscular Volume 93.6 fl (82-101); Mean Platelet Volume 8.9 fL (7.4-10.4); Monocytes # 0.9 10^3/uL (0.2-0.9); Neutrophils # 4.92 10^3/uL (1.8-7.7); Nucleated Red Blood Cells % 0 %; Platelet Count 257 10^3/cmm (157-399); Red Blood Count 3.13 10^6/uL (3.85-5.65); Red Cell Distribution Width 14.4 % (12.1-15.1); White Blood Count 7.93 10^3/uL (3.29-11.43)
[2024-12-05 04:41] LABS: Blood Urea Nitrogen 11 mg/dL (8-23); Calcium 8.9 mg/dL (8.5-10.5); Carbon Dioxide 35 mmol/L (22-29); Chloride 91 mmol/L (98-107); Creatinine Clr Calc Pharmacy 57.6121; Glucose 76 mg/dL (65-115); Osmolality Calculated 276 mOsm/kg (285-295); Sodium 134 mmol/L (136-145)
[2024-12-05 04:56] LABS: Anion Gap 11.7 (5-19); Potassium 3.7 mmol/L (3.5-5.1)
[2024-12-05] MEDS: docusate sodium 100 mg Capsule PO (09:16)
[2024-12-05] MEDS: metoprolol succinate ER (24 HR) 25 mg Tablet 12.5 MG PO ×2 (09:17→11:47)
[2024-12-05] MEDS: sucralfate 1 gm Tablet PO (09:17)
[2024-12-05] MEDS: predniSONE 20 mg Tablet PO (09:17)
[2024-12-05] MEDS: tamsulosin 0.4 mg Capsule PO (09:17)
[2024-12-05] MEDS: FUROsemide 20 mg Tablet PO ×2 (09:18→15:38)
[2024-12-05] MEDS: aspirin 81 mg EC Tablet PO (09:18)
[2024-12-05] MEDS: clopidogrel 75 mg Tablet PO (09:18)
[2024-12-05] MEDS: nicotine 21 mg Patch 1 PATCH TRANSDERMA (09:18)
[2024-12-05] MEDS: pantoprazole 40 mg SDV IVP (09:19)
--- NOTE | 2024-12-05 11:33 | PC.SOCIAL ---
IMM Updated Updated pt on IMM. No questions voiced. Provided pt a copy. Initialed, dated, & timed copy in chart.
--- NOTE | 2024-12-05 12:24 | P.DS_ITS ---
Discharge Providers Date of Admission: 11/27/24 22:09 Date of Discharge: December 05, 2024 Attending Provider at Admission: River Nicolas MD Attending Provider at Discharge: Saman Vizcaino MD Primary Care Provider: Talita Recinos MD Diagnoses at Discharge Discharge Diagnosis (1) Atrial fibrillation with RVR: Status: Acute (2) COPD (chronic obstructive pulmonary disease): Status: Acute (3) CAD (coronary artery disease): Status: Acute Qualifiers: Associated angina: without angina Coronary Disease-Associated Artery/Lesion type: [place] artery [place] vs. transplanted heart: [place] heart Qualified Code(s): I25.10 - Atherosclerotic heart disease of [place] coronary artery without angina pectoris (4) Acute CHF (congestive heart failure): Status: Acute (5) S/P AAA repair: Status: Acute (6) Urinary retention: Status: Acute (7) Acute anemia: Status: Acute (8) NSTEMI (non-ST elevated myocardial infarction): Status: Acute (9) Pulmonary embolism: Status: Acute (10) Acute hypoxic respiratory failure: Status: Acute (11) CHF (congestive heart failure): Status: Acute Qualifiers: Heart failure chronicity: acute Heart failure type: systolic Qualified Code(s): I50.21 - Acute systolic (congestive) heart failure (12) Systolic CHF: Status: Acute (13) Pneumonia: Status: Acute (14) Physical deconditioning: Status: Acute (15) Protein calorie malnutrition: Status: Acute (16) Current smoker: Status: Acute (17) Cardiogenic shock: Status: Acute Reason for Visit Reason for Visit: sob Hospital Course Hospital Course This is a 79-year-old male with a past medical history of abdominal aortic aneurysm/endoleak repair at [facility], current smoker, COPD, acute anemia, deconditioning, who presents to [facility] for shortness of breath Please look at my last progress note, patient had a complicated and prolonged hospitalization Patient was admitted to [facility] for acute hypoxic respiratory failure, acute respiratory distress secondary to systolic CHF, echo showed EF 25-30%, bilateral pleural effusions, fluid overload, patient was admitted to ICU. Placed on dobutamine drip, Levophed, IV Lasix, and clinically monitored. Overall patient clinically improved, diuresed over 12 L, will be discharged on Lasix therapy, potassium replacement therapy with close follow-up with cardiology as outpatient. For patient acute hypoxic respiratory failure in addition secondary to pneumonia, received IV antibiotics, overall clinically improved discharged on doxycycline For his systolic CHF down to 25 to 30%, NSTEMI, patient underwent cardiac catheterization, no obstructive CAD did have 60 to 70% obstructive stenosis distal circumflex. Decision to medically manage, received aspirin, statin, Plavix, beta-yulisa with close follow-up with cardiology as outpatient. Patient's hospitalization was complicated by tachycardia versus atrial fibrillation, will be discharged on metoprolol with close follow-up with cardiology as outpatient In terms of anticoagulant therapy, and patient's acute anemia, patient has persistent acute anemia, with Hemoccult positive stools, discussed the risk and benefits of anticoagulant therapy, shared decision making, patient has agreed to hold anticoagulant therapy for now, follow-up with cardiology as outpatient, need to monitor hemoglobin trend as outpatient, decision to start anticoagulant therapy later on if and when, based on shared decision making with cardiology and primary care. Nonetheless he is discharged on aspirin, and Plavix as above, which will provide some benefit. During his hospitalization there was a concern for pulmonary embolism, repeat CT angiogram did not show any significant radiographic evidence of pulmonary embolism, anticoagulant therapy was discontinued Due to his deconditioning, protein calorie malnutrition, muscle loss and strongly recommended for him to go to senior care facility however patient has declined. He will be discharged to the care of his , we declined home health care. Discussed morbidity and mortality associated with deconditioning, malnutrition, risk of DVT and hypercoagulable events, risk of bedsores, risk of falls, he voiced understanding, all question answered, adamant about going home, declines any help at home, lives at home with his . Patient has declined LifeVest on discharge, understands morbidity over tilidate, voices understanding, all question answered, declines for now Discharge we had a detailed discussion about smoking cessation counseling, morbidity or mortality associated, he voices understanding, all questions answered, agreed to proceed Or acute anemia, discharged on Protonix, Carafate, follow-up with general surgery as outpatient for consideration of EGD Physical Exam Const: COMMON NORMALS: no acute distress and patient oriented x3 Resp: COMMON NORMALS: normal respiratory effort, No retractions, No use of accessory muscles and clear to auscultation bilaterally AUSCULTATION: clear to auscultation bilaterally Cardio: COMMON NORMALS: regular rate, regular rhythm, S1 normal heart sound present and S2 normal heart sound present RATE: regular rate RHYTHM: regular rhythm HEART SOUNDS: S1 normal heart sound present and S2 normal heart sound present GI: COMMON NORMALS: Normal to inspection, nondistended, normoactive bowel sounds present and non-tender Extremity: COMMON NORMALS: no pedal edema Neuro: COMMON NORMALS: patient oriented x3 Psych: COMMON NORMALS: mental status grossly normal Urinary Catheter Management: Cook: Cath Placed During This Visit: yes Reason for Continuing Indwelling Catheter: Accurate Measurement of Urinary Output in Critically Ill Patients Urinary Catheter Date of Insertion: 11/29/24 Urinary Catheter Time of Insertion: 13:34 Discharge Data Studies Completed and Pending Completed Studies During Hospitalization Category Date Time Status CT angio chest PE protcl [id number] Stat Cat Scan 12/02/24 15:02 Completed CTA PE [CT angio chest PE protcl [id number]] Stat Cat Scan 11/27/24 19:42 Completed CAN REPAIRER request for service Routine Exams 12/04/24 06:12 Completed CXRP [XR chest 1V portable [id number]] Routine Exams 12/01/24 07:15 Completed XR chest 1V portable [id number] Routine Exams 11/29/24 07:00 Completed XR chest 1V portable [id number] Stat Exams 11/27/24 16:35 Completed CV duplex aorta [id number] Routine Ultrasound 11/28/24 07:59 [place] [id number] Routine Ultrasound 11/28/24 07:40 Completed CV. echo complete* [id number] Routine Ultrasound 11/28/24 07:40 Completed Pending at discharge Category Date Time Status Basic Metabolic Panel AM LABS Lab 12/06/24 04:00 Ordered Basic Metabolic Panel AM LABS Lab 12/07/24 04:00 Ordered Complete Blood Count w/Auto AM LABS Lab 12/06/24 04:00 Ordered Complete Blood Count w/Auto AM LABS Lab 12/07/24 04:00 Ordered VBG [Venous Blood Gas] Stat Lab 11/27/24 21:49 Results Radiology Impressions Chest X-Ray 12/01/24 07:15 IMPRESSION: PICC line terminates near the atriocaval junction. Chest CTA 12/02/24 15:02 IMPRESSION: 1. No pulmonary embolism is identified. 2. There are fluid/fluid levels (hyperdense contrast layering dependently beneath unopacified blood) in the left lower lobe pulmonary artery branches compared to the remainder of the lung parenchyma compatible with sluggish flow attributed to the much larger right main pulmonary artery compared to the left. 3. There are severe emphysematous changes. There is dense right middle lobe atelectasis and/or consolidation which has progressed compared to the prior exam. There is narrowing of the bronchus intermedius/occlusion with multiple adjacent small calcified granulomas in this may reflect scarring which has progressed compared to the prior exam. No discrete hilar mass. 4. There is unchanged 4.7 cm aneurysmal dilatation of the ascending thoracic aorta without dissection. Unchanged abdominal aortic aneurysm with stent graft and multiple stents to abdominal aortic branches. Laboratory Results WBC 7.93 10^3/uL (3.29-11.43) 12/05/24 03:24 RBC 3.13 10^6/uL (3.85-5.65) L 12/05/24 03:24 Hgb 9.70 g/dL (11.27-16.99) L 12/05/24 03:24 Hct 29.3 % (37-53) L 12/05/24 03:24 MCV 93.6 fl (82-101) 12/05/24 03:24 MCH 31.0 pg (27-33) 12/05/24 03:24 MCHC 33.1 g/dL (30-55) 12/05/24 03:24 RDW 14.4 % (12.1-15.1) 12/05/24 03:24 Plt Count 257 10^3/cmm (157-399) 12/05/24 03:24 MPV 8.9 fL (7.4-10.4) 12/05/24 03:24 Neut % (Auto) 62.0 % 12/05/24 03:24 Lymph % (Auto) 24.1 % 12/05/24 03:24 Swain % (Auto) 11.0 % 12/05/24 03:24 Eos % (Auto) 2.3 % 12/05/24 03:24 Baso % (Auto) 0.1 % 12/05/24 03:24 Reticulocyte % (Auto) 2.6 % (0.5-2.0) H 11/28/24 08:33 Neut # (Auto) 4.92 10^3/uL (1.8-7.7) 12/05/24 03:24 Lymph # (Auto) 1.9 10^3/uL (0.8-4.8) 12/05/24 03:24 Swain # (Auto) 0.9 10^3/uL (0.2-0.9) 12/05/24 03:24 Eos # (Auto) 0.2 10^3/uL (0.0-0.8) 12/05/24 03:24 Baso # (Auto) 0.0 10^3/uL (0.0-0.1) 12/05/24 03:24 Nucleated RBC % (auto) 0 % 12/05/24 03:24 Nucleated RBCs # 0.0 /100WBC 12/05/24 03:24 APTT 59.5 SECONDS (23.9-36.7) H 12/04/24 04:07 D-Dimer 2.26 ug/mLFEU (0-0.59) H 11/28/24 08:33 Specimen Type Arterial 11/29/24 11:34 Sample Site Radial, right 11/29/24 11:34 ABG pH 7.43 (7.35-7.45) 11/29/24 11:34 ABG pCO2 40.5 mmHg (35-45) 11/29/24 11:34 ABG pO2 74.5 mmHg (80.0-100.0) L 11/29/24 11:34 ABG HCO3 26.7 mmol/L (22-26) H 11/29/24 11:34 ABG O2 Saturation 95.7 11/29/24 11:34 ABG Base Excess 2.1 mmol/L (-2.0-2.0) H 11/29/24 11:34 Star Test Pos 11/29/24 11:34 VBG pH 7.45 (7.32-7.42) H 11/27/24 21:49 VBG pCO2 44.8 mmHg (41-51) 11/27/24 21:49 VBG pO2 20.8 mmHg (25-40) L 11/27/24 21:49 VBG HCO3 30.9 mmol/L (24-28) H 11/27/24 21:49 VBG Base Excess 6.1 mmol/L (-3.0-3.0) H 11/27/24 21:49 VBG Hematocrit 33.8 % (42-52) L 11/27/24 21:49 A-a O2 Gradient 3.2 mmHg (5-10) L 11/29/24 11:34 Hematocrit 27.5 % (42-52) L 11/29/24 11:34 Hgb O2 Saturation 93.2 % (95-100) L 11/29/24 11:34 Carboxyhemoglobin 1.6 %THgb (0.4-20.1) 11/29/24 11:34 Methemoglobin 1.0 % (0.4-1.5) 11/29/24 11:34 Total Hemoglobin 9.0 g/dL (14-18) L 11/29/24 11:34 Sodium 121.0 mmol/L (131-143) L 11/29/24 11:34 Potassium 4.9 mmol/L (3.5-5.0) 11/29/24 11:34 Glucose 170.0 mg/dL (70-115) H 11/29/24 11:34 Ionized Calcium 1.2 mmol/L (1.1-1.4) 11/29/24 11:34 O2 Delivery Device Nc 11/29/24 11:34 O2 Liters/Min 2.0 % 11/29/24 11:34 FiO2 21.0 % 11/27/24 21:49 Restrooms Or Lounges Maid ID [place] 11/29/24 11:34 Sodium 134 mmol/L (136-145) L 12/05/24 03:24 Potassium 3.7 mmol/L (3.5-5.1) 12/05/24 03:24 Chloride 91 mmol/L (98-107) L 12/05/24 03:24 Carbon Dioxide 35 mmol/L (22-29) H 12/05/24 03:24 Anion Gap 11.7 (5-19) 12/05/24 03:24 BUN 11 mg/dL (8-23) 12/05/24 03:24 Creatinine 0.6 mg/dL (0.7-1.2) L 12/05/24 03:24 GFR Calculation Not Reportable 12/05/24 03:24 Glucose 76 mg/dL (65-115) 12/05/24 03:24 Calculated Osmolality 276 mOsm/kg (285-295) L 12/05/24 03:24 Lactate 2.1 mmol/L (0.5-2.2) 11/29/24 12:45 Calcium 8.9 mg/dL (8.5-10.5) 12/05/24 03:24 Phosphorus 3.4 mg/dL (2.5-4.5) 12/04/24 04:07 Magnesium 1.7 mg/dL (1.7-2.3) 12/04/24 10:08 Iron 21 ug/dL (59-158) L 11/27/24 19:52 TIBC 343 mcg/dl 11/27/24 19:52 % Saturation 6.1 % (20-50) L 11/27/24 19:52 Unsat Iron Binding 322 ug/dL (112-347) 11/27/24 19:52 Ferritin 57 ng/mL (30-400) 11/28/24 08:33 Total Bilirubin 0.4 mg/dL (0.15-1.2) 12/04/24 04:07 AST 25 U/L (0-40) 12/04/24 04:07 ALT 22 U/L (0-41) 12/04/24 04:07 Alkaline Phosphatase 96 U/L (40-130) 12/04/24 04:07 Troponin T 5th Gen ng/L 57 ng/L (0-15) H 11/28/24 15:13 Troponin T Baseline 58 ng/L (0-15) H 11/27/24 17:14 Troponin T 120 Minute 59.73 ng/L (0-15) H 11/27/24 19:52 Delta Troponin T 1.73 ABS# (0-10) 11/27/24 19:52 Troponin T Hi Sens 6Hr 78.39 ng/L (0-15) H 11/28/24 01:08 Troponin T Hi Sens 6Hr Delta 20.39 ng/L (0-12) H* 11/28/24 01:08 C-Reactive Protein 5.3 mg/L (0.0-4.9) H 12/01/24 04:31 NT-Pro-B Natriuret Pep 3723 pg/mL (0-450) H 12/04/24 04:07 Total Protein 6.6 g/dL (6.6-8.7) 12/04/24 04:07 Albumin 3.6 g/dL (3.5-5.2) 12/04/24 04:07 Globulin 3.0 g/dL (1.3-4.6) 12/04/24 04:07 Procalcitonin 0.06 ng/mL (0-0.5) 12/01/24 04:31 TSH 0.62 uIU/mL (0.27-4.20) 11/27/24 19:52 Urine Color Yellow (Yellow) 11/28/24 11:07 Urine Appearance Clear (CLEAR) 11/28/24 11:07 Urine pH 7.0 (5-7) 11/28/24 11:07 Ur Specific Divide 1.013 (1.005-1.030) 11/28/24 11:07 Urine Protein Negative (Negative) 11/28/24 11:07 Urine Glucose (UA) Negative (Normal) 11/28/24 11:07 Urine Ketones Negative (Negative) 11/28/24 11:07 Urine Blood Negative (Negative) 11/28/24 11:07 Urine Nitrate Negative (Negative) 11/28/24 11:07 Urine Bilirubin Negative (Negative) 11/28/24 11:07 Urine Urobilinogen 0.2 mg/dL (Negative) 11/28/24 11:07 Ur Leukocyte Esterase Negative (Negative) 11/28/24 11:07 Urine RBC 0-2 /hpf (0-2) 11/28/24 11:07 Urine WBC 0-5 /hpf (0-5) 11/28/24 11:07 Ur Squamous Epith Cells 0-5 /hpf (0-5) 11/28/24 11:07 Amorphous Sediment Not Reportable 11/28/24 11:07 Urine Bacteria None seen /hpf (NONE) 11/28/24 11:07 Hyaline Casts 2.87 /lpf 11/28/24 11:07 Vitals Last Vital Signs Temp 98.9 F 12/05/24 11:40 Pulse 92 12/05/24 11:40 Resp 17 12/05/24 11:40 BP 102/65 12/05/24 11:40 Pulse Ox 90 12/05/24 11:40 O2 Del Method Room Air 12/05/24 11:40 O2 Flow Rate 1 12/04/24 21:07 FiO2 21 11/30/24 23:15 Discharge Plan Discharge Patient Disposition: Home Condition: Stable Prescriptions: New prednisone 20 mg Tablet 20 mg PO DAILY 5 Days Qty: 5 0RF furosemide 20 mg Tablet 20 mg PO BID@08,16 30 Days Qty: 60 0RF potassium chloride [Klor-Con 10] 10 mEq tablet extended release 10 meq PO BID 30 Days Qty: 60 0RF sucralfate [Carafate] 1 gram tablet 1 g PO BID 28 Days Qty: 56 0RF metoprolol succinate 25 mg Tablet Extended Release 24 Hr 25 mg PO DAILY 30 Days Qty: 30 0RF pantoprazole [Protonix] 40 mg tablet,delayed release (DR/EC) 40 mg PO BID 30 Days Qty: 60 0RF Continued albuterol sulfate 90 mcg/actuation aerosol powdr breath activated 2 inh inhalation Q6H PRN (Reason: copd) tamsulosin 0.4 mg capsule 0.4 mg PO DAILY oxycodone 5 mg tablet 5 mg PO Q6H PRN (Reason: Pain) rosuvastatin 20 mg tablet 20 mg PO DAILY Combivent Respimat 20-100 mcg/actuation mist 1 puff INHALATION DAILY aspirin [Aspir-81] 81 mg Tablet,Delayed Release (Dr/Ec) 81 mg PO DAILY vitamin E 268 mg (400 unit) Capsule 268 mg PO DAILY clopidogrel 75 mg tablet 75 mg PO DAILY 30 Days Qty: 30 0RF Discontinued azithromycin 250 mg tablet See Rx Instructions .ROUTE .COMPLEX Rx Instructions: TAKE 2 TABLETS BY MOUTH TODAY, THEN TAKE 1 TABLET DAILY ON DAYS 2-5. prednisone 20 mg tablet 40 mg PO DAILY Discharge Orders: Discharge Order (Routine); Ordered 12/05/24 Ordered By: Saman Vizcaino Other Ambulatory Orders: Physical Therapy Eval and Treat Outpatient (Order) Timeframe: 3 Days Facility: [facility] - Location: Physical Therapy Ordered By: Saman Vizcaino Referrals: [facility] Outpatient Therapy [Outside] - 12/10/24 4:00 pm Talita Recinos MD [Primary Care Provider, Internal Medicine] - 12/05/24 9:30 am Annita Rincon FNP [Nurse Practitioner, Cardiology] - 12/16/24 4:00 pm Jr Cevallos MD [Physician, General Surgery] - 3 weeks Referral Note: egd for anemia Discharge Diet: Cardiac Discharge Activity: Resume usual activity Patient Instructions: Metoprolol (By mouth), Furosemide (By mouth), Prednisone (By mouth), Potassium Chloride (By mouth), Heart Failure (DC), Pulmonary Embolism (DC), How to Stop Smoking (DC), Acute Respiratory Failure (ED), Opioid Safety Activity Restrictions/Additional Instructions: - If you have any chest pain please come to the emergency room - Please limit your fluid intake to a liter of fluid a day - Please take Lasix as prescribed - Please take metoprolol as prescribed - Continue aspirin, Plavix - Please have your primary care provider recheck your hemoglobin in 1 week - Please follow-up with cardiology - If you have any weakness, fatigue or lightheadedness go to the emergency room Discharge Attestations Time Spent in Discharge Care*: greater than 30 min Quality Metrics Clinical Quality Measures [ No reported AMI, CVA or VTE this stay] Coding Level of Care Code 21971 Total time (in minutes) for Discharge: 45 Diagnoses Atrial fibrillation with RVR I48.91 COPD (chronic obstructive pulmonary disease) J44.9 Coronary artery disease involving [place] coronary artery of [place] heart without angina pectoris I25.10 Associated angina: without angina Coronary Disease-Associated Artery/Lesion type: [place] artery [place] vs. transplanted heart: [place] heart Acute CHF (congestive heart failure) I50.9 S/P AAA repair Z98.890; Z86.79 Urinary retention R33.9 Acute anemia D64.9 NSTEMI (non-ST elevated myocardial infarction) I21.4 Pulmonary embolism I26.99 Acute hypoxic respiratory failure J96.01 Acute systolic congestive heart failure I50.21 Heart failure chronicity: acute Heart failure type: systolic Systolic CHF I50.20 Pneumonia J18.9 Physical deconditioning R53.81 Protein calorie malnutrition E46 Current smoker F17.200 Cardiogenic shock R57.0
--- NOTE | 2024-12-05 13:12 | P.PN_ITS ---
<Statement entered by Nba Collins MD - 12/05/24 22:25> Patient was evaluated and cared for in conjunction with an advanced practice practitioner. I personally examined the patient and reviewed the chart and all pertinent data including imaging, telemetry, and laboratory results. I discussed the patient in detail with the advanced practice practitioner. Please see their note for complete H&P testing result and agreed upon plan of care for the patient. Subjective 2 Subjective: Patient is doing well today. He is off of oxygen. Overall euvolemic. Oxygen saturation 90% on room air blood pressure 102/65 with pulse of 92. He does have a heart rate in the 100s at times. Overall he is doing well. Radial cath site clean dry intact no signs of hematoma. He was -2 L over 24 hours. Vitals/I&O/Wt Last Vital Signs Temp 98.9 F 12/05/24 11:40 Pulse 92 12/05/24 11:40 Resp 17 12/05/24 11:40 BP 102/65 12/05/24 11:40 Pulse Ox 90 12/05/24 11:40 O2 Del Method Room Air 12/05/24 11:40 O2 Flow Rate 1 12/04/24 21:07 FiO2 21 11/30/24 23:15 12/04/24 12/05/24 12/05/24 22:59 06:59 14:59 Intake Total 222 / 691.667 222 / 913.667 460 / 460 Output Total 1600 / 1600 1100 / 2700 Balance -1378 / -908.333 -878 / -1786.333 460 / 460 Weight last 48 hrs Weight 124 lb Physical Exam 2 Narrative: General: No apparent distress, healthy appearing, well nourished HENMT: normoceophalic Muskuloskeletal: Full ROM Respiratory: Normal respiratory effort, clear to auscultation bilaterally throughout all lung o[place], no use of accessory muscles Cardio: No JVD, regular rate, regular rhythm, S1 S2 normal, no murmurs, peripheral pulses 2+ radial palpated bilaterally GI: Normal to inspection, nondistended Extremities: Full ROM, normal, normal capillary refill, no cyanosis or edema Neuro: Alert and oriented x4, no focal motor deficits Psych: Affect normal, denies suicidal ideation, mental status grossly normal Skin: Right radial cath site clean dry intact well-approximated no signs of hematoma present Urinary Catheter Management: Cook: Cath Placed During This Visit: yes Reason for Continuing Indwelling Catheter: Accurate Measurement of Urinary Output in Critically Ill Patients Urinary Catheter Date of Insertion: 11/29/24 Urinary Catheter Time of Insertion: 13:34 Data 12/05/24 03:24 12/05/24 03:24 A&P Assessment and plan (1) CAD (coronary artery disease): (2) CHF (congestive heart failure): (3) S/P AAA repair: (4) Cardiogenic shock: Plan Patient is overall doing well. Will increase metoprolol to 25 mg daily and watch patient's blood pressure to see if he tolerates it. If he does well this afternoon may be discharged from a heart standpoint. He does not want the LifeVest at this time. He understands the risk of sudden without it. Follow-up in the clinic in 1 week. Patient was educated on low-sodium diet and heart healthy diet. He was also given restrictions post cath. Will avoid Entresto at this time due to patient's blood pressure is soft. May start on an outpatient basis if patient can tolerate. PDMP PDMP Reviewed: Not Reviewed Attestations 2 Medical Necessity Statement*: Deferred to primary Coding Level of Care Code Acute Code for [facility] Diagnoses Coronary artery disease involving [place] coronary artery of [place] heart without angina pectoris I25.10 Coronary Disease-Associated Artery/Lesion type: [place] artery [place] vs. transplanted heart: [place] heart Associated angina: without angina Acute systolic congestive heart failure I50.21 Heart failure chronicity: acute Heart failure type: systolic S/P AAA repair Z98.890; Z86.79 Cardiogenic shock R57.0
--- NOTE | 2024-12-05 16:21 | PC.OT ---
OT treatment attempted with pt declining due to pt being discharged today.
--- NOTE | 2024-12-05 17:11 | PC.NURSE ---
discharge instructions given and explained to pt and .event monitor was placed.both verb understanding of instructions.discharged via w/c at [facility] time
== END 2024-12-05 17:12 | disposition home or self-care (01) | DRG 280 ==
LOC: ER 22:09 → CSU 22:20 → ICU 11-29 13:59 → CSU 12-04 16:03
PROVIDERS: Family Medicine; Internal Medicine; Nurse Practitioner Family; Admitting Provider Internal Medicine; Emergency Provider Student in an Organized Health Care Education/Training Program; PCP Internal Medicine; Visit Provider Family Medicine
DX: I11.0 Hypertensive heart disease with heart failure (principal); I26.99 Other pulmonary embolism without acute cor pulmonale; I21.4 Non-ST elevation (NSTEMI) myocardial infarction; J96.01 Acute respiratory failure with hypoxia; I50.21 Acute systolic (congestive) heart failure; R57.0 Cardiogenic shock; I50.23 Acute on chronic systolic (congestive) heart failure; E46 Unspecified protein-calorie malnutrition; Z68.1 Body mass index [BMI] 19.9 or less, adult; J44.0 Chronic obstructive pulmonary disease with (acute) lower respiratory infection; Z66 Do not resuscitate; J44.9 Chronic obstructive pulmonary disease, unspecified; I25.10 Atherosclerotic heart disease of native coronary artery without angina pectoris; D50.9 Iron deficiency anemia, unspecified; I48.91 Unspecified atrial fibrillation; R19.5 Other fecal abnormalities; R33.9 Retention of urine, unspecified; F17.210 Nicotine dependence, cigarettes, uncomplicated; I49.1 Atrial premature depolarization; I49.3 Ventricular premature depolarization; R53.81 Other malaise; I35.0 Nonrheumatic aortic (valve) stenosis; Z79.899 Other long term (current) drug therapy; Z74.01 Bed confinement status; Z95.828 Presence of other vascular implants and grafts; Z70.2 Counseling related to sexual behavior and orientation of third party; Z79.82 Long term (current) use of aspirin
CPT/HCPCS: 36415; 36573; 36592; 36600; 51702; 51798; 71045; 71046; 71275; 80048; 80051; 80053; 81001; 82274; 82330; 82728; 82803; 82805; 83540; 83550; 83605; 83735; 83880; 84100; 84132; 84145; 84295; 84443; 84484; 85014; 85018; 85025; 85045; 85049; 85378; 85730; 86140; 87040; 87070; 87205; 92507; 92523; 92610; 93005; 93306; 93454; 93970; 93978; 94640; 94664; 96374; 96376; 97116; 97162; 97167; 97530; 97535; 99152; 99153; 99285; A9270; C1751; C1769; C1887; C1894; J0456; J0696; J1250; J1644; J1756; J1938; J2250; J2470; J3010; J3490; J7050; J7512; J9999; Q0144; Q0163; Q9967

== ENCOUNTER → 2024-12-23 13:43 | Outpatient (BNVA) | payer MEDICARE, SELFPAY | PROVIDERS: PCP Internal Medicine; Visit Provider Nurse Practitioner Family | DX: I48.91 Unspecified atrial fibrillation (principal); I25.10 Atherosclerotic heart disease of native coronary artery without angina pectoris; I47.20 Ventricular tachycardia, unspecified; D64.9 Anemia, unspecified; I50.1 Left ventricular failure, unspecified; J96.91 Respiratory failure, unspecified with hypoxia; F17.210 Nicotine dependence, cigarettes, uncomplicated | CPT/HCPCS: 99214 ==

== ENCOUNTER → 2025-02-12 15:54 | Outpatient (BNVA) | payer MEDICARE, SELFPAY | PROVIDERS: PCP Internal Medicine; Visit Provider Internal Medicine Cardiovascular Disease | DX: I25.10 Atherosclerotic heart disease of native coronary artery without angina pectoris (principal); I48.20 Chronic atrial fibrillation, unspecified; Z79.02 Long term (current) use of antithrombotics/antiplatelets; Z79.82 Long term (current) use of aspirin; I50.9 Heart failure, unspecified; Z12.11 Encounter for screening for malignant neoplasm of colon; F17.210 Nicotine dependence, cigarettes, uncomplicated; Z95.5 Presence of coronary angioplasty implant and graft | CPT/HCPCS: 99214 ==

== ENCOUNTER 2025-02-20 09:35 | Outpatient (CLI) | payer MEDICARE, SELFPAY ==
--- NOTE | 2025-02-20 09:39 | XRR_ITS ---
PROCEDURE INFORMATION: Exam: XR Lumbosacral Spine Exam date and time: 02/20/2025 9:58 AM Age: 79 years old Clinical indication: Prior surgery; Surgery date: 6+ months; Surgery type: Low back surgery(unspecified), gb, abdominal aortic aneurysm; Low back pain when standing, states HX of herniated disc in low back; Additional info: Bilateral leg weakness/lumbar back pain TECHNIQUE: Imaging protocol: Radiologic exam of the lumbosacral spine. Views: 4 or 5 views. COMPARISON: CT angio abdomen pelvis [id number] 03/21/2023 12:27 PM FINDINGS: Bones/joints: No acute fracture or acute appearing subluxation. Diffuse osteopenia. There is moderately severe lower lumbar degenerative change with loss of disc space and osteophyte formation most pronounced at L4-S1. A couple of levels of minimal chronic listhesis are probably related to facet arthropathy. Minimal scoliosis. Soft tissues: Tortuous and stented AAA. Advanced diffuse vascular calcification noted. XR/XR lumbar spine min 4V [id number] IMPRESSION: 1. No acute findings. 2. Chronic findings above.
== END 2025-02-20 09:36 | disposition home or self-care (01) ==
PROVIDERS: PCP Internal Medicine; Visit Provider Nurse Practitioner Family
DX: R29.898 Other symptoms and signs involving the musculoskeletal system (principal); M54.50 Low back pain, unspecified; M85.88 Other specified disorders of bone density and structure, other site; M47.816 Spondylosis without myelopathy or radiculopathy, lumbar region; M41.87 Other forms of scoliosis, lumbosacral region; I77.1 Stricture of artery; M35.89 Other specified systemic involvement of connective tissue; I70.91 Generalized atherosclerosis; Z95.828 Presence of other vascular implants and grafts
CPT/HCPCS: 72110

== ENCOUNTER → 2025-06-04 10:08 | Outpatient (BNVA) | payer MEDICARE, SELFPAY | PROVIDERS: PCP Internal Medicine; Visit Provider Nurse Practitioner Family | DX: I25.10 Atherosclerotic heart disease of native coronary artery without angina pectoris (principal); I48.91 Unspecified atrial fibrillation; I50.21 Acute systolic (congestive) heart failure; Z98.890 Other specified postprocedural states; Z86.79 Personal history of other diseases of the circulatory system; G89.29 Other chronic pain; M54.9 Dorsalgia, unspecified; F17.210 Nicotine dependence, cigarettes, uncomplicated | CPT/HCPCS: 99214 ==

== ENCOUNTER 2025-06-24 06:40 | Outpatient (CLI) | payer MEDICARE, SELFPAY ==
--- NOTE | 2025-06-24 07:00 | USCV_ITS ---
Martín Pickering Age: 79 Gender: M : 1945 Exam Date: 06/24/2025 07:00 Ordering Phys: Annita Rincon Technologist: Nik Chauhan Exam Location: [facility] [place] Indication: as BP: 120 / 70 HR: 59 Rhythm: Sinus Technical Quality: Adequate MEASUREMENTS (Male / Female) Normal Values 2D ECHO LV Diastolic Diameter PLAX 4.4 cm 4.2 - 5.9 / 3.9 - 5.3 cm IVS Diastolic Thickness 1.4 cm 0.6 - 1.0 / 0.6 - 0.9 cm IVS Systolic Thickness 1.9 cm LVPW Diastolic Thickness 1.4 cm 0.6 - 1.0 / 0.6 - 0.9 cm LVPW Systolic Thickness 1.8 cm LVOT Diameter 2.1 cm LV Ejection Fraction 2D Teich 60.8 % LV Ejection Fraction MOD 4C 77.1 % LV Ejection Fraction MOD 2C 80.0 % LV Ejection Fraction 2C AL 81.4 % LA Diameter 2.9 cm RA Systolic Volume 4C AL 27.7 ml RA Systolic Volume 4C MOD 26.2 ml Aorta at Sinotubular Diameter 3.3 cm IVC Diameter 1.6 cm M-MODE LA Ao Ratio MM 1.1 AV Cusp Separation MM 0.8 cm DOPPLER AV Peak Velocity 228.7 cm/s LVOT Peak Velocity 96.0 cm/s AV Area Cont Eq vti 1.8 cm squared AV Area Cont Eq pk 1.4 cm squared MV Peak Velocity 132.0 cm/s MV Area PHT 3.2 cm squared Mitral E to A Ratio 0.6 TV Peak Velocity 278.0 cm/s TR Peak Velocity 316.0 cm/s TR Peak Gradient 39.9 mmHg TV Peak E Velocity 74.0 cm/s PV Peak Velocity 107.0 cm/s FINDINGS Left Ventricle Normal left ventricular size, systolic function and wall thickness, with no regional wall motion abnormalities. Left ventricular ejection fraction is estimated at 60 %. Grade I/IV diastolic dysfunction (abnormal relaxation filling pattern), normal to mildly elevated filling pressures. Right Ventricle Normal right ventricular size and systolic function. Right Atrium Normal right atrial size. Left Atrium Normal left atrial size. IA Septum Normal appearance of the interatrial septum. Mitral Valve Moderately thickened mitral valve. No mitral valve stenosis. Mild mitral valve regurgitation. Aortic Valve Severe aortic valve calcification. Moderate aortic valve stenosis, mean gradient 10.8 mmHg, EMORY 1.8 cm squared. Trace aortic valve regurgitation. Tricuspid Valve Normal tricuspid valve structure. No tricuspid valve stenosis or regurgitation. Normal pulmonary pressure. Pulmonic Valve Normal pulmonic valve structure. No pulmonic valve stenosis or regurgitation. Pericardium No pericardial effusion. Aorta Normal diameter of the aortic root and ascending thoracic aorta. IVC Normal IVC diameter. CONCLUSIONS Normal left ventricular size, systolic function and wall thickness, with no regional wall motion abnormalities. Left ventricular ejection fraction is estimated at 60 %. Grade I/IV diastolic dysfunction (abnormal relaxation filling pattern), normal to mildly elevated filling pressures. Severe aortic valve calcification. Moderate aortic valve stenosis, mean gradient 10.8 mmHg, EMORY 1.8 cm squared. Trace aortic valve regurgitation. Moderately thickened mitral valve. No mitral valve stenosis. Mild mitral valve regurgitation. There is no pericardial effusion. Right atrial pressure is around 5 mm of mercury. Nba Collins MD (Electronically Signed) Final Date: 04 July 2025 18:05 S
== END 2025-06-24 06:41 | disposition home or self-care (01) ==
PROVIDERS: PCP Internal Medicine; Visit Provider Nurse Practitioner Family
DX: I50.20 Unspecified systolic (congestive) heart failure (principal); R93.1 Abnormal findings on diagnostic imaging of heart and coronary circulation; I34.0 Nonrheumatic mitral (valve) insufficiency; I35.8 Other nonrheumatic aortic valve disorders; I35.0 Nonrheumatic aortic (valve) stenosis
CPT/HCPCS: 93306